=== PATIENT | female | born 1935 | race Caucasian/White ===

== ENCOUNTER 2017-07-02 15:38 | Emergency (ER) | payer MEDICARE ==
[~2017-07-02] VITALS: Ht 160 cm; Wt 80.5 kg
[~2017-07-02 15:38] MED LIST: CARV6.252 PO; ECOT81TA2 PO; PANT40IN3 PO; PLAV75TA PO; POTA-243 PO; PREG75 PO; SPIR25TA PO
[2017-07-02 15:47] VITALS: BP 157/73; PULSE 71; RESP 16; TEMP 97.3; O2SAT 98
[2017-07-02] MEDS ORDERED: SIMV20TA PO (16:11)
[2017-07-02] MEDS ORDERED: LEVS0.123 PO (16:11)
[2017-07-02] MEDS ORDERED: BISO5TAB5 PO (16:11)
[2017-07-02] MEDS ORDERED: LEVO100T5 PO (16:11)
[2017-07-02] MEDS ORDERED: RANI1TAB5 PO (16:11)
[2017-07-02] MEDS ORDERED: CARV6.252 PO (16:11)
[2017-07-02] MEDS ORDERED: SPIR25TA PO (16:11)
[2017-07-02] MEDS ORDERED: LOSA50TA PO (16:11)
[2017-07-02] MEDS ORDERED: PANT40TA3 PO (16:11)
[2017-07-02] MEDS ORDERED: CLOP75TA PO (16:11)
[2017-07-02] MEDS ORDERED: KLOR10TA PO (16:11)
[2017-07-02] MEDS ORDERED: GLIM1TAB PO (16:11)
[2017-07-02] MEDS ORDERED: LYRI75CA PO (16:11)
--- NOTE | 2017-07-02 16:28 | PD ---
HPI . Facial pain Chief Complaint: Fall Time Seen by Provider: 16:10 Travel History International Travel<30 days: No Contact w/Intl Traveler<30days: No Traveled to known affect area: No History of Present Illness HPI Patient presents stating that she rolled out of bed 2-1/2 weeks ago and struck the left side of her face. She states that she was black and blue on the left side of her face. That has resolved. Her, she has continued to have facial pain. She subsequently presents to us for evaluation. She states that her facial pain is relieved by ice. She rates the pain at 7/10. She states that she also has some neck pain. She further states that she does not recall the event. Her daughter states that she rolled out of bed after starting a new sleeping pill. It is unclear if the amnesia for the event is related to the sleeping pill or the blow to the head. The patient states she presents to us today because the pain has persisted. She denied any other injuries. PFSH Past Medical History Hx Anticoagulant Therapy: Yes Arthritis: Yes Blood Disorders: No Anxiety: Yes Depression: Yes Heart Rhythm Problems: Yes (NEW AFIB 12/29/15) Cancer: No Cardiac Catheterization: Yes Cardiovascular Problems: Yes (htn on meds) High Cholesterol: Yes Chest Pain: No Congestive Heart Failure: No Cerebrovascular Accident: Yes Coronary Artery Disease: Yes Diabetes: Yes (type 2) Patient Takes Glucophage: No Diminished Hearing: No Endocrine: Yes Fibromyalgia: Yes Gastrointestinal Disorders: Yes GERD: Yes Genitourinary: Yes Headaches: Yes Hepatitis: No Hiatal Hernia: No Hypertension: Yes Immune Disorder: No Implanted Vascular Access Dvce: Yes Kidney Stones: No Medical other: Yes (OPEN WOUNDS KAVITA. LEGS, FALL RISK, FIBROMYALGIA) Musculoskeletal: Yes (FIBROMYALGIA) Neurologic: Yes Psychiatric: Yes Reproductive: No Respiratory: No Immunizations Current: No Migraines: No Myocardial Infarction: Yes (DECEMBER 2015) Renal Failure: No Seizures: No Thyroid Disease: Yes (HYPOTHYROID) Ulcer: No ?: Not Menopausal: Yes : 5 Para: 4 Miscarriage: 1 Past Surgical History Abdominal Surgery: Yes (APPY, CHOLECYSTECTOMY) AICD: No Appendectomy: Yes Arteriovenous Shunt: Yes Body Medical Devices: CORONARY ARTERY STENTS AND CAROTID ARTERY STENTS Cardiac Surgery: No Cholecystectomy: Yes Coronary Stent: Yes (1993) Ear Surgery: No Endocrine Surgery: No Eye Surgery: No Genitourinary Surgery: Yes (BLADDER SUSPENSION, INTERSTIM. INS.(MEDTRONIC)) Gynecologic Surgery: Yes (BLADDER SURGERIES, PT HAS PESSARY) Hysterectomy: Yes Insulin Pump: No Joint Replacement: Yes (LEFT KNEE, PARTIAL) Oral Surgery: Yes (T & A) Pacemaker: No Thoracic Surgery: No Tonsillectomy: Yes Other Surgery: Yes (CERVICAL FUSION, CERV. SX X4) Social History Alcohol Use: Yes (OCCASSIONAL) Tobacco Use: No Substance Use: No Allergies-Medications (Allergen,Severity, Reaction): Coded Allergies: *MDRO Multi-Drug Resistant Organism (Verified Adverse Reaction, Unknown, 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 PCR negative - 12/29/15 & 01/01/16 VRE PCR negative - 01/01/16 & 01/03/16 Cleared per Infection Control 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/08/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) - 06/28/13 Reported Meds & Prescriptions Reported Meds & Active Scripts Active Reported Pantoprazole (Pantoprazole Sodium) 40 Mg Tab 40 Mg PO DAILY Lyrica (Pregabalin) 75 Mg Cap 75 Mg PO BID Klor-Con 10 (Potassium Chloride) 10 Meq Tab 10 Meq PO BID Levothyroxine (Levothyroxine Sodium) 100 Mcg Tab 100 Mcg PO DAILY Levsin (Hyoscyamine Sulfate) 0.125 Mg Tab 0.125 Mg PO Q6H Glimepiride 1 Mg Tab 1 Mg PO BID Take with breakfast or first main meal Ranitidine 75 (Ranitidine HCl) 75 Mg Tab 150 Mg PO BID Take 30 to 60 minutes before eating food or drinking beverages that cause heartburn. Simvastatin 20 Mg Tab 20 Mg PO BID Losartan (Losartan Potassium) 50 Mg Tab 50 Mg PO BID Clopidogrel (Clopidogrel Bisulfate) 75 Mg Tab 75 Mg PO DAILY Spironolactone 25 Mg Tab 25 Mg PO DAILY Carvedilol 6.25 Mg Tab 6.25 Mg PO BID Bisoprolol (Bisoprolol Fumarate) 5 Mg Tab 5 Mg PO DAILY Review of Systems Except as stated in HPI: all other systems reviewed are Neg General / Constitutional: No: Fever, Chills Eyes: No: Diploplia, Blurred Vision HENT: Positive: Neck Pain, Other (left facial pain), No: Dental Difficulties ( specifically, her teeth fit together normally.) Physical Exam Narrative GENERAL: Awake and alert and in no acute distress. SKIN: Warm and dry. No current bruising on her face. HEAD: Normocephalic/atraumatic. EYES: Pupils are equal. Extraocular movements are intact. ENT: Teeth occlude normally. NECK: Normal range of motion. No tenderness to palpation of the cervical spine. CARDIOVASCULAR: Regular rate and rhythm. RESPIRATORY: Nonlabored respirations. MUSCULOSKELETAL: Atraumatic. NEUROLOGICAL: A and O 3. Cranial nerves are intact. Moving all 4 extremities equally. PSYCHIATRIC: Appropriate mood and affect. Data Data Last Documented VS Vital Signs Date Time Temp Pulse Resp B/P (MAP) Pulse Ox O2 Delivery O2 Flow Rate FiO2 07/02/17 15:47 97.3 71 16 157/73 (101) [address] Brain W/O Iv Contrast(Rout) (07/02/17 16:15) Ct Cerv Spine W/O Contrast (07/02/17 16:15) Ct Facial Bones W/O Iv Cont (07/02/17 16:15) MDM Medical Decision Making Medical Screen Exam Complete: Yes Emergency Medical Condition: Yes Differential Diagnosis Differential diagnosis of facial trauma includes but is not limited to soft tissue contusion, abrasions, laceration, nasal fracture, orbital fracture, zygomatic fracture Narrative Course This patient presents complaining with persistent left facial pain following a fall out of bed 2-1/2 weeks ago. I really do not suspect any significant injury at this point. Her facial, neuro and C-spine exams are normal. However , her daughter is convinced that there is something wrong. I have ordered CTs of her head, face and C-spine. CT C-spine: 1. Stable postoperative features of spinal fusion at C4-7. 2. No acute fracture or new subluxation. CT head: 1. No acute intracranial abnormality is identified. 2. Chronic findings include mild cerebral atrophy and chronic periventricular white matter changes. CT face: 1. No maxillofacial fracture is present. 2. There is moderate mucoperiosteal thickening within the right maxillary sinus. Diagnosis Primary Impression: Facial contusion Qualified Codes: S00.83XA - Contusion of other part of head, initial encounter Patient Instructions: Facial Contusion (ED), General Instructions Disposition: 01 DISCHARGE HOME Condition: Stable Elizabeth Greer MD Jul 02, 2017 16:28
--- NOTE | 2017-07-02 17:05 | RADRPT ---
EXAM DATE/TIME: 07/02/2017 16:43 [facility] COMPARISON: CT BRAIN W/O CONTRAST, April 24, 2016, 19:59. INDICATIONS : Trauma. Fell out of bed 2 1/2 weeks ago. Left facial pain. RADIATION DOSE: 61.95 CTDIvol (mGy) MEDICAL HISTORY : Cerebrovascular disease. Myocardial infarction. Diabetes mellitus type 2.Hypertension. SURGICAL HISTORY : Coronary artery stent. Fusion, cervical.Cholecystectomy.Appendectomy. AV shunt. ENCOUNTER: Initial ACUITY: 2 weeks PAIN SCALE: 7/10 LOCATION: cranial TECHNIQUE: Multiple contiguous axial images were obtained of the head. Using automated exposure control and adj ustment of the mA and/or kV according to patient size, radiation dose was kept as low as reasonably a chievable to obtain optimal diagnostic quality images. DICOM format image data is available electro nically for review and comparison. FINDINGS: CEREBRUM: There is mild cerebral atrophy. Ventricles are normal. There is mild periventricular white matter low attenuation. No midline shift, mass lesion, hemorrhage or acute infarction. No extra-axial fluid co llections are seen. POSTERIOR FOSSA: The cerebellum and brainstem are intact. The 4th ventricle is midline. The cerebellopontine angle i s unremarkable. EXTRACRANIAL: There is mucoperiosteal thickening within the right maxillary antrum. SKULL: The calvaria is intact. No evidence of skull fracture. CONCLUSION: 1. No acute intracranial abnormality is identified. 2. Chronic findings include mild cerebral atrophy and chronic periventricular white matter changes. Isiah Diaz MD on July 02, 2017 at 17:01 Board Certified Radiologist. This report was verified electronically.
--- NOTE | 2017-07-02 17:13 | RADRPT ---
EXAM DATE/TIME: 07/02/2017 16:43 [facility] COMPARISON: No previous studies available for comparison. INDICATIONS : Trauma. Fell out of bed 2 1/2 weeks ago. Left facial pain. RADIATION DOSE: 25.35 CTDIvol (mGy) MEDICAL HISTORY : Cerebrovascular disease. Myocardial infarction. Diabetes mellitus type 2.Hypertension. SURGICAL HISTORY : Fusion, cervical. Coronary artery stent.Cholecystectomy.Appendectomy. AV shunt. ENCOUNTER: Initial ACUITY: 2 weeks PAIN SCORE: 7/10 LOCATION: Left facial TECHNIQUE: Volumetric scanning of the facial bones was performed. Using automated exposure control and adjustme nt of the mA and/or kV according to patient size, radiation dose was kept as low as reasonably achiev able to obtain optimal diagnostic quality images. DICOM format image data is available electronicAJAX Street y for review and comparison. FINDINGS: ORBITS: The orbital structures are intact. The retroconal structures have a normal configuration. No radiop aque foreign bodies are seen. The lenses are normally located. NASAL BONE: The nasal bones and maxillary spine are intact. ZYGOMATIC ARCHES: Symmetric without evidence of fracture. SINUSES: There is mucoperiosteal thickening within the right maxillary antrum. No air-fluid levels are present . NASAL CAVITY: The nasal septum is intact and midline. The lacrimal ducts are intact. SOFT TISSUES: No radiopaque foreign bodies seen. No soft-tissue swelling is seen. INTRACRANIAL: No acute intracranial abnormality is seen. OTHER: The mandible and pterygoid plates are intact. CONCLUSION: 1. No maxillofacial fracture is present. 2. There is moderate mucoperiosteal thickening within the right maxillary sinus. Isiah Diaz MD on July 02, 2017 at 17:09 Board Certified Radiologist. This report was verified electronically.
--- NOTE | 2017-07-02 17:15 | RADRPT ---
EXAM DATE/TIME: 07/02/2017 16:43 [facility] COMPARISON: CT CERVICAL SPINE W/O CONTRAST, April 24, 2016, 19:59. INDICATIONS : Trauma. Fell out of bed 2 1/2 weeks ago. Left facial pain. RADIATION DOSE: 26.12 CTDIvol (mGy) MEDICAL HISTORY : Cerebrovascular disease. Diabetes mellitus type 2. Myocardial infarction.Hypertension. SURGICAL HISTORY : Coronary artery stent. Fusion, cervical.Cholecystectomy.Appendectomy. AV shunt. ENCOUNTER: Initial ACUITY: 2 weeks PAIN SCALE: 7/10 LOCATION: neck TECHNIQUE: Volumetric scanning of the cervical spine was performed. Multiplanar reconstructions in the sagittal, coronal and oblique axial planes were performed. Using automated exposure control and adjustment o f the mA and/or kV according to patient size, radiation dose was kept as low as reasonably achievable to obtain optimal diagnostic quality images. DICOM format image data is available electronically f or review and comparison. FINDINGS: Postsurgical features of anterior plate and screw fixation at C6-7. There is solid bony union at C4-C 7. Vertebral body heights are maintained. Osseous structures are intact without evidence for acute [place] fracture. Dens is intact. Sagittal alignment is stable with subtle less than 2 mm anterolisthesis of C3 on C4 and C7 on T1. There is a normal C1-2 relationship. Facets are normally aligned. There is no significant prevertebral soft tissue hematoma. No significant cervical adenopathy or gross mass. T he thyroid appears unremarkable. Visualized lung apices are clear without pneumothorax. CONCLUSION: 1. Stable postoperative features of spinal fusion at C4-7. 2. No acute fracture or new subluxation. Mart Garber MD on July 02, 2017 at 17:11 Board Certified Radiologist. This report was verified electronically.
== END 2017-07-02 17:50 | disposition home or self-care (01) ==
LOC: PHED 15:38
DX: S00.83XA Contusion of other part of head, initial encounter (principal); E03.9 Hypothyroidism, unspecified; E11.9 Type 2 diabetes mellitus without complications; E78.00 Pure hypercholesterolemia, unspecified; I10 Essential (primary) hypertension; W06.XXXA Fall from bed, initial encounter; Z79.02 Long term (current) use of antithrombotics/antiplatelets; Z79.84 Long term (current) use of oral hypoglycemic drugs
CPT/HCPCS: 70450; 70486; 72125; 99285

== ENCOUNTER 2017-08-06 18:23 | Emergency (ER) | payer MEDICARE ==
[~2017-08-06] VITALS: Ht 160 cm; Wt 79.0 kg
[~2017-08-06 18:23] MED LIST changes: +BISO5TAB5 PO; +CLOP75TA PO; -ECOT81TA2 PO; +GLIM1TAB PO; +KLOR10TA PO; +LEVO100T5 PO; +LEVS0.123 PO; +LOSA50TA PO; +LYRI75CA PO; -PANT40IN3 PO; +PANT40TA3 PO; -PLAV75TA PO; -POTA-243 PO; -PREG75 PO; +RANI1TAB5 PO; +SIMV20TA PO
[2017-08-06 18:37] VITALS: BP_SYST 144; BP_SYST 181; BP_DIAS 70; BP_DIAS 82; PULSE 106; PULSE 68; RESP 16; TEMP 97; TEMP 98.2; O2SAT 96; O2SAT 97
[2017-08-06] MEDS ORDERED: CLON0.5T PO (21:42)
[2017-08-06] MEDS ORDERED: LYRI75CA PO (21:42)
[2017-08-06 21:43] VITALS: BP 186/80; PULSE 61; RESP 18; O2SAT 96
--- NOTE | 2017-08-06 22:39 | PD ---
HPI Chief Complaint: Fall Time Seen by Provider: 21:54 Travel History International Travel<30 days: No Contact w/Intl Traveler<30days: No Traveled to known affect area: No History of Present Illness HPI 81yo F with PMH of DM, HTN was sent here by her home physician to come to the ED for CT scan. Pt said she was washing toilet 1.5 weeks ago, got up and fell backwards and hit her head. Pt has been getting headaches and neck pain but it has actually improved. She had a physician check on her at home today and they did blood work and urine and it was all negative. However, since pt is on plavix, they wanted her to have CT scan. Denies any LOC. Denies any focal weakness, focal numbness, dizziness, chest pain, sob, n/v, abdominal pain. PFSH Past Medical History Hx Anticoagulant Therapy: Yes Arthritis: Yes Blood Disorders: No Anxiety: Yes Depression: Yes Heart Rhythm Problems: Yes (NEW AFIB 12/29/15) Cancer: No Cardiac Catheterization: Yes Cardiovascular Problems: Yes (htn on meds) High Cholesterol: Yes Chest Pain: No Congestive Heart Failure: No Cerebrovascular Accident: Yes Coronary Artery Disease: Yes Diabetes: Yes (type 2) Patient Takes Glucophage: No Diminished Hearing: No Endocrine: Yes Fibromyalgia: Yes Gastrointestinal Disorders: Yes GERD: Yes Genitourinary: Yes Headaches: Yes Hepatitis: No Hiatal Hernia: No Hypertension: Yes Immune Disorder: No Implanted Vascular Access Dvce: Yes Kidney Stones: No Medical other: Yes (, FALL RISK, FIBROMYALGIA) Musculoskeletal: Yes (FIBROMYALGIA) Neurologic: Yes Psychiatric: Yes Reproductive: No Respiratory: No Immunizations Current: No Migraines: No Myocardial Infarction: Yes (DECEMBER 2015) Renal Failure: No Seizures: No Thyroid Disease: Yes (HYPOTHYROID) Ulcer: No Tetanus Vaccination: > 5 Years Influenza Vaccination: Yes ?: Not Menopausal: Yes : 5 Para: 4 Miscarriage: 1 Past Surgical History Abdominal Surgery: Yes (APPY, CHOLECYSTECTOMY) AICD: No Appendectomy: Yes Arteriovenous Shunt: Yes Body Medical Devices: CORONARY ARTERY STENTS AND CAROTID ARTERY STENTS Cardiac Surgery: No Cholecystectomy: Yes Coronary Stent: Yes (1993) Ear Surgery: No Endocrine Surgery: No Eye Surgery: No Genitourinary Surgery: Yes (BLADDER SUSPENSION, INTERSTIM. INS.(MEDTRONIC)) Gynecologic Surgery: Yes (BLADDER SURGERIES, PT HAS PESSARY) Hysterectomy: Yes Insulin Pump: No Joint Replacement: Yes (LEFT KNEE, PARTIAL) Oral Surgery: Yes (T & A) Pacemaker: No Thoracic Surgery: No Tonsillectomy: Yes Other Surgery: Yes (CERVICAL FUSION, CERV. SX X4) Social History Alcohol Use: Yes (OCCASSIONAL) Tobacco Use: No Substance Use: No Allergies-Medications (Allergen,Severity, Reaction): Coded Allergies: *MDRO Multi-Drug Resistant Organism (Verified Adverse Reaction, Unknown, 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 PCR negative - 12/29/15 & 01/01/16 VRE PCR negative - 01/01/16 & 01/03/16 Cleared per Infection Control 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/08/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) - 06/28/13 Reported Meds & Prescriptions Reported Meds & Active Scripts Active Reported Clonazepam 0.5 Mg Tab 0.5 Mg PO BID Lyrica (Pregabalin) 75 Mg Cap 75 Mg PO BID Pantoprazole (Pantoprazole Sodium) 40 Mg Tab 40 Mg PO DAILY Klor-Con 10 (Potassium Chloride) 10 Meq Tab 10 Meq PO DAILY Levothyroxine (Levothyroxine Sodium) 100 Mcg Tab 100 Mcg PO DAILY Glimepiride 1 Mg Tab 1 Mg PO BID Take with breakfast or first main meal Ranitidine 75 (Ranitidine HCl) 75 Mg Tab 150 Mg PO DAILY Take 30 to 60 minutes before eating food or drinking beverages that cause heartburn. Simvastatin 20 Mg Tab 20 Mg PO DAILY Losartan (Losartan Potassium) 50 Mg Tab 50 Mg PO DAILY Clopidogrel (Clopidogrel Bisulfate) 75 Mg Tab 75 Mg PO DAILY Spironolactone 25 Mg Tab 25 Mg PO DAILY Carvedilol 6.25 Mg Tab 12.5 Mg PO BID Bisoprolol (Bisoprolol Fumarate) 5 Mg Tab 5 Mg PO BID Review of Systems Except as stated in HPI: all other systems reviewed are Neg Physical Exam Narrative GENERAL: 81yo F not in distress. SKIN: Focused skin assessment warm/dry. HEAD: Atraumatic. Normocephalic. EYES: Pupils equal and round at 3mm bilaterally. EOMI. ENT: No nasal bleeding or discharge. Mucous membranes pink and moist. NECK: No midline cervical spine ttp. +Diffuse paraspinal ttp. CARDIOVASCULAR: Regular rate and rhythm. No murmur appreciated. RESPIRATORY: No accessory muscle use. Clear to auscultation. Breath sounds equal bilaterally. GASTROINTESTINAL: Abdomen soft, non-tender, nondistended. No rebound tenderness or guarding. MUSCULOSKELETAL: No obvious deformities. No clubbing. No cyanosis. No edema. NEUROLOGICAL: Awake and alert. No obvious cranial nerve deficits. Motor grossly within normal limits. Normal speech. Sensation intact. PSYCHIATRIC: Appropriate mood and affect; insight and judgment normal. Data Data Last Documented VS Vital Signs Date Time Temp Pulse Resp B/P (MAP) Pulse Ox O2 Delivery O2 Flow Rate FiO2 08/06/17 21:43 61 18 186/80 (115) 96 Room Air 08/06/17 18:[address] Brain W/O Iv Contrast(Rout) (08/06/17 ) Ct Cerv Spine W/O Contrast (08/06/17 ) Acetaminophen (Tylenol) (08/06/17 22:45) MDM Medical Decision Making Medical Screen Exam Complete: Yes Emergency Medical Condition: Yes Differential Diagnosis ICH vs. hypertensive emergency vs. contusion of head vs. musculoskeletal pain Narrative Course 81yo F sent here for CT brain after falling 1.5 weeks ago. No other symptoms. Pt had extensive work up with PMD. CT cervical spine showed no acute bony fracture. CT brain showed no ICH. Pt given acetaminophen and headache is better. She wants to go home. Return precautions given. Diagnosis Primary Impression: Fall Qualified Codes: W19.XXXA - Unspecified fall, initial encounter Patient Instructions: General Instructions Departure Forms: Tests/Procedures Additional Instructions: Please follow up with your primary care physician in 2-3 days. Return to the ED if symptoms worsen. Med/Other Pt SpecificInfo: Prescription(s) given Scripts Acetaminophen (Tylenol) 325 Mg Tab 325 MG PO Q4H Y for PAIN SCALE 1 TO 4, #20 TAB 0 Refills Prov: Tammie Gutierres 08/07/17 Disposition: 01 DISCHARGE HOME Condition: Stable GutierresTammie DO Aug 06, 2017 22:39
[2017-08-06] MEDS ORDERED: ACETAMINOPHEN 500 MG CPLT PO ONE (22:45)
--- NOTE | 2017-08-07 | RADRPT ---
EXAM DATE/TIME: 08/06/2017 22:32 [facility] COMPARISON: CT BRAIN W/O CONTRAST, July 02, 2017, 16:43. INDICATIONS : Status post fall 2 weeks ago. Hit head. No LOC. Headache RADIATION DOSE: 57.13 CTDIvol (mGy) MEDICAL HISTORY : Radiculopathy. SURGICAL HISTORY : Carotid stent. Fusion, cervical.Tonsillectomy. ENCOUNTER: Initial ACUITY: 2 weeks PAIN SCALE: 6/10 LOCATION: cranial TECHNIQUE: Multiple contiguous axial images were obtained of the head. Using automated exposure control and adj ustment of the mA and/or kV according to patient size, radiation dose was kept as low as reasonably a chievable to obtain optimal diagnostic quality images. DICOM format image data is available electro nically for review and comparison. FINDINGS: CEREBRUM: The ventricles are normal for age. No evidence of midline shift, mass lesion, hemorrhage or acute in farction. There is stable chronic white matter changes bilaterally. No extra-axial fluid collections are seen. POSTERIOR FOSSA: The cerebellum and brainstem are intact. The 4th ventricle is midline. The cerebellopontine angle i s unremarkable. EXTRACRANIAL: The visualized portion of the orbits is intact. Chronic sinus disease in the right maxillary sinus. SKULL: The calvaria is intact. No evidence of skull fracture. CONCLUSION: 1. No acute intracranial hemorrhage. 2. Stable CT scan of the brain compared to the prior examination. Lizandro Borrero MD on August 06, 2017 at 23:57 Board Certified Radiologist. This report was verified electronically.
--- NOTE | 2017-08-07 00:14 | RADRPT ---
EXAM DATE/TIME: 08/06/2017 22:32 [facility] COMPARISON: CT CERVICAL SPINE W/O CONTRAST, July 02, 2017, 16:43. INDICATIONS : Status post fall 2 weeks ago. Neck pain RADIATION DOSE: 26.47 CTDIvol (mGy) MEDICAL HISTORY : Radiculopathy. SURGICAL HISTORY : Carotid stent. Tonsillectomy.Fusion, cervical. ENCOUNTER: Initial ACUITY: 2 weeks PAIN SCALE: 6/10 LOCATION: neck TECHNIQUE: Volumetric scanning of the cervical spine was performed. Multiplanar reconstructions in the sagittal, coronal and oblique axial planes were performed. Using automated exposure control and adjustment o f the mA and/or kV according to patient size, radiation dose was kept as low as reasonably achievable to obtain optimal diagnostic quality images. DICOM format image data is available electronically f or review and comparison. FINDINGS: Today's exam is compared to the prior study of 07/02/2017. There been no new or significant changes wi th the overall appearance of the cervical spine. There is an anterior fusion plate at C6-7. There is solid bony fusion at C4-C7. There continues to be good alignment of the cervical spine. There are mil d diffuse primary degenerative changes involving the cervical spine. No acute bony fracture is demons trated. The odontoid process is intact. There is bilateral facet arthritis at multiple levels. No sig nificant extradural defects are seen in the spinal canal. CONCLUSION: 1. Stable CT scan of the cervical spine compared to the prior examination. 2. No acute bony fracture. Lizandro Borrero MD on August 07, 2017 at 0:08 Board Certified Radiologist. This report was verified electronically.
[2017-08-07] MEDS ORDERED: TYLE325T PO (00:31)
[2017-08-07 00:45] VITALS: RESP 18
== END 2017-08-07 00:47 | disposition home or self-care (01) ==
LOC: PHED 18:23 → PHEFT 08-07 00:47
DX: R51 Headache (principal); M54.2 Cervicalgia; E03.9 Hypothyroidism, unspecified; E11.9 Type 2 diabetes mellitus without complications; E78.00 Pure hypercholesterolemia, unspecified; I10 Essential (primary) hypertension; I25.10 Atherosclerotic heart disease of native coronary artery without angina pectoris; I25.2 Old myocardial infarction; I48.91 Unspecified atrial fibrillation; K21.9 Gastro-esophageal reflux disease without esophagitis; M79.7 Fibromyalgia; Z79.02 Long term (current) use of antithrombotics/antiplatelets; Z79.84 Long term (current) use of oral hypoglycemic drugs; Z79.899 Other long term (current) drug therapy; W19.XXXA Unspecified fall, initial encounter
CPT/HCPCS: 70450; 72125

== ENCOUNTER 2017-08-23 18:33 | Inpatient (IN) | payer MEDICARE ==
[~2017-08-23] VITALS: Ht 160 cm; Wt 82.2 kg
[~2017-08-23 18:33] MED LIST changes: +CLON0.5T PO; -LEVS0.123 PO; +TYLE325T PO
[2017-08-23 18:35] VITALS: BP 96/51; PULSE 72; RESP 16; TEMP 97.3; O2SAT 96
--- NOTE | 2017-08-23 19:14 | PD ---
HPI Chief Complaint: GI Complaint Time Seen by Provider: 19:14 Travel History International Travel<30 days: No Contact w/Intl Traveler<30days: No Traveled to known affect area: No History of Present Illness HPI 81-year-old female came to the emergency room saying she's been feeling weak, nauseous and has a headache. Patient generally does not get headache. She used when she was younger. The symptoms have been going on for past 2-4 days. Patient says she did not vomit and no history of diarrhea. She has lost her appetite. No history of shortness of breath or chest pain. No history of syncopal episode or dizziness. Vital signs were stable in triage. PFSH Past Medical History Narrative Medical List of her past medical, surgical, social and family history is reviewed from the nursing note. Hx Anticoagulant Therapy: Yes Arthritis: Yes Blood Disorders: No Anxiety: Yes Depression: Yes Heart Rhythm Problems: Yes (NEW AFIB 12/29/15) Cancer: No Cardiac Catheterization: Yes Cardiovascular Problems: Yes (htn on meds) High Cholesterol: Yes Chest Pain: No Congestive Heart Failure: No Cerebrovascular Accident: Yes Coronary Artery Disease: Yes Diabetes: Yes (type 2) Diminished Hearing: No Endocrine: Yes Fibromyalgia: Yes Gastrointestinal Disorders: Yes GERD: Yes Genitourinary: Yes Headaches: Yes Hepatitis: No Hiatal Hernia: No Hypertension: Yes Immune Disorder: No Implanted Vascular Access Dvce: Yes Kidney Stones: No Musculoskeletal: Yes (FIBROMYALGIA) Neurologic: Yes Psychiatric: Yes Reproductive: No Respiratory: No Immunizations Current: No Migraines: No Myocardial Infarction: Yes (DECEMBER 2015) Renal Failure: No Seizures: No Thyroid Disease: Yes (HYPOTHYROID) Ulcer: No Menopausal: Yes : 5 Para: 4 Miscarriage: 1 Past Surgical History Abdominal Surgery: Yes (APPY, CHOLECYSTECTOMY) AICD: No Appendectomy: Yes Arteriovenous Shunt: Yes Body Medical Devices: CORONARY ARTERY STENTS AND CAROTID ARTERY STENTS Cardiac Surgery: No Cholecystectomy: Yes Coronary Stent: Yes (1993) Ear Surgery: No Endocrine Surgery: No Eye Surgery: No Genitourinary Surgery: Yes (BLADDER SUSPENSION, INTERSTIM. INS.(MEDTRONIC)) Gynecologic Surgery: Yes (BLADDER SURGERIES, PT HAS PESSARY) Hysterectomy: Yes Insulin Pump: No Joint Replacement: Yes (LEFT KNEE, PARTIAL) Oral Surgery: Yes (T & A) Pacemaker: No Thoracic Surgery: No Tonsillectomy: Yes Other Surgery: Yes (CERVICAL FUSION, CERV. 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 Reported Meds & Prescriptions Reported Meds & Active Scripts Active Tylenol (Acetaminophen) 325 Mg Tab 325 Mg PO Q4H PRN Reported Clonazepam 0.5 Mg Tab 0.5 Mg PO BID Lyrica (Pregabalin) 75 Mg Cap 75 Mg PO BID Pantoprazole (Pantoprazole Sodium) 40 Mg Tab 40 Mg PO DAILY Klor-Con 10 (Potassium Chloride) 10 Meq Tab 10 Meq PO DAILY Levothyroxine (Levothyroxine Sodium) 100 Mcg Tab 100 Mcg PO DAILY Glimepiride 1 Mg Tab 1 Mg PO BID Take with breakfast or first main meal Ranitidine 75 (Ranitidine HCl) 75 Mg Tab 150 Mg PO DAILY Take 30 to 60 minutes before eating food or drinking beverages that cause heartburn. Simvastatin 20 Mg Tab 20 Mg PO DAILY Clopidogrel (Clopidogrel Bisulfate) 75 Mg Tab 75 Mg PO DAILY Carvedilol 6.25 Mg Tab 12.5 Mg PO BID Bisoprolol (Bisoprolol Fumarate) 5 Mg Tab 5 Mg PO BID Narrative Medication List of her home medications reviewed from the nursing note. Review of Systems Except as stated in HPI: all other systems reviewed are Neg Gastrointestinal: Positive: Nausea Neurologic: Positive: Headache Physical Exam Narrative GENERAL: Awake, alert, elderly, moderate distress SKIN: Focused skin assessment warm/dry. HEAD: Atraumatic. Normocephalic. EYES: Pupils equal and round. No scleral icterus. No injection or drainage. ENT: No nasal bleeding or discharge. Mucous membranes pink and moist. NECK: Trachea midline. No JVD. CARDIOVASCULAR: Regular rate and rhythm. No murmur appreciated. RESPIRATORY: No accessory muscle use. Clear to auscultation. Breath sounds equal bilaterally. GASTROINTESTINAL: Abdomen soft, non-tender, nondistended. Hepatic and splenic margins not palpable. MUSCULOSKELETAL: No obvious deformities. No clubbing. No cyanosis. No edema. NEUROLOGICAL: Awake and alert. No obvious cranial nerve deficits. Motor grossly within normal limits. Normal speech. PSYCHIATRIC: Appropriate mood and affect; insight and judgment normal. Data Data Last Documented VS Vital Signs Date Time Temp Pulse Resp B/P (MAP) Pulse Ox O2 Delivery O2 Flow Rate FiO2 08/23/17 21:30 64 18 129/61 (83) 93 Room Air 08/23/17 18:35 97.3 Orders Orders Complete Blood Count With Diff (08/23/17 19:17) Basic Metabolic Panel (Bmp) (08/23/17 19:17) Urinalysis - C+S If Indicated (08/23/17 19:17) Sodium Chlorid 0.9% 500 Ml Inj (Ns 500 M (08/23/17 19:30) Ondansetron Inj (Zofran Inj) (08/23/17 19:30) Ct Brain W/O Iv Contrast(Rout) (08/23/17 ) Shipwright Apprentice / Telemetry DELTA.Q8H (08/23/17 19:17) Sodium Chlor 0.9% 1000 Ml Inj (Ns 1000 M (08/23/17 21:15) Electrocardiogram (08/23/17 21:07) Ecg Monitoring (08/23/17 21:07) Oximetry (08/23/17 21:07) Calcium Gluconate Inj (Calcium Gluconate (08/23/17 21:15) Insulin Human Regular Inj (Novolin R Inj (08/23/17 21:15) Dextrose 50% In Kristin (Vial) Inj (D50w (Vi (08/23/17 21:15) Sodium Bicarbonate 8.4% Inj (Sodium Bica (08/23/17 21:15) Albuterol Concentrated Neb (Albuterol Co (08/23/17 21:15) Troponin I (08/23/17 19:55) Bedside Glucose DELTA.CSUGAR (08/23/17 21:25) Blood Glucose Goal (Criteria) (08/23/17 21:25) Hypoglycemia 70 Mg/Dl Or < (08/23/17 21:25) Notify Dr: Other (08/23/17 21:25) Dextrose 50% In Kristin (Vial) Inj (D50w (Vi (08/23/17 21:30) Glucagon Inj (Glucagon Inj) (08/23/17 21:30) Insulin Aspart Supplemtl Scale (Novolog (08/24/17 08:00) Us Kidney/Renal/Bladder (08/23/17 ) Consult Nephrology (08/23/17 ) Basic Metabolic Panel (Bmp) (08/24/17 00:00) Admit To Inpatient (08/23/17 ) Vital Signs (Adult) Q4H (08/23/17 21:25) Activity Oob With Assistance (08/23/17 21:25) Shipwright Apprentice / Telemetry .CONTINUOUS (08/23/17 21:25) Intake + Output DELTA.QSHIFT (08/23/17 21:25) Diet 1800 Ada Cons Carb (08/24/17 Breakfast) Sodium Chlor 0.9% 1000 Ml Inj (Ns 1000 M (08/23/17 21:25) Sodium Chloride 0.9% Flush (Ns Flush) (08/23/17 21:30) Sodium Chloride 0.9% Flush (Ns Flush) (08/24/17 09:00) Ondansetron Inj (Zofran Inj) (08/23/17 21:30) Comprehensive Metabolic Panel (08/24/17 06:00) Complete Blood Count With Diff (08/24/17 06:00) Pt Request For Service (08/23/17 21:25) Case Management Consult (08/23/17 21:25) Scd Bilateral/Knee High DELTA.BID (08/23/17 21:25) Cristopher Bilateral/Knee High (08/23/17 21:30) Acetaminophen (Tylenol) (08/23/17 21:30) Acetamin-Hydrocod 325-5 Mg (Sumner 5-325 (08/23/17 21:30) Morphine Inj (Morphine Inj) (08/23/17 21:30) Docusate Sodium-Senna (Brianna-Colace) (08/24/17 09:00) Magnesium Hydroxide Liq (Milk Of Magnesi (08/23/17 21:30) Sennosides (Senokot) (08/23/17 21:30) Bisacodyl Supp (Dulcolax Supp) (08/23/17 21:30) Lactulose Liq (Lactulose Liq) (08/23/17 21:30) Inpatient Certification (08/23/17 ) Admit Order (Ed Use Only) (08/23/17 21:33) Labs Laboratory Tests Test 08/23/17 19:55 White Blood Count 12.5 TH/MM3 Red Blood Count 5.27 MIL/MM3 Hemoglobin 15.3 GM/DL Hematocrit 46.9 % Mean Corpuscular Volume 89.0 FL Mean Corpuscular Hemoglobin 29.0 PG Mean Corpuscular Hemoglobin Concent 32.6 % Red Cell Distribution Width 14.4 % Platelet Count 238 TH/MM3 Mean Platelet Volume 9.3 FL Neutrophils (%) (Auto) 71.4 % Lymphocytes (%) (Auto) 21.3 % Monocytes (%) (Auto) 5.8 % Eosinophils (%) (Auto) 0.8 % Basophils (%) (Auto) 0.7 % Neutrophils # (Auto) 8.9 TH/MM3 Lymphocytes # (Auto) 2.7 TH/MM3 Monocytes # (Auto) 0.7 TH/MM3 Eosinophils # (Auto) 0.1 TH/MM3 Basophils # (Auto) 0.1 TH/MM3 CBC Comment DIFF FINAL Differential Comment Blood Urea Nitrogen 51 MG/DL Creatinine 2.40 MG/DL Random Glucose 134 MG/DL Calcium Level 8.9 MG/DL Sodium Level 135 MEQ/L Potassium Level 6.6 MEQ/L Chloride Level 105 MEQ/L Carbon Dioxide Level 21.6 MEQ/L Anion Gap 8 MEQ/L Estimat Glomerular Filtration Rate 19 ML/MIN Troponin I LESS THAN 0.02 NG/ML MDM Medical Decision Making Medical Screen Exam Complete: Yes Emergency Medical Condition: Yes Medical Record Reviewed: Yes Interpretation(s) Twelve-lead EKG was reviewed by me. Normal sinus rhythm, left axis deviation, inferior ST elevations but unchanged from 2016, poor R-wave progression. Heart rate of 64 bpm. Differential Diagnosis Intracranial bleed, dehydration Narrative Course 9:36 PM blood test results came back and chemistry is significant for acute renal failure and hyperkalemia. The acute renal failure is new when trended with all the labs from the past. Patient has been given treatment protocol for hyperkalemia including IV calcium gluconate, IV bicarbonate, IV insulin and D50 and albuterol nebulizers. I discussed the case with the hospitalist who has accepted the patient. I discussed these findings with patient and her daughter and answered all the questions the best of my ability. Patient continues to remain hemodynamically stable otherwise. Critical Care Narrative Aggregate critical care time was 45 minutes. Time to perform other separately billable procedures was not included in the critical care time. My time did not include minutes spent treating any other patients simultaneously or on activities that did not directly contribute to the patient's treatment. The services I provided to this patient were to treat and/or prevent clinically significant deterioration that could result in: Acute renal failure, hyperkalemia I provided critical care services requiring my management, as noted below: Chart data review, documentation time, medication orders and management, vital sign assessments/reviewing monitor data, ordering and reviewing lab tests, ordering and interpreting/reviewing x-rays and diagnostic studies, care of the patient and discussion of the patient with the admitting physicians. Procedures EKG Prior to Arrival: No Diagnosis Primary Impression: ARF (acute renal failure) Qualified Codes: N17.9 - Acute kidney failure, unspecified Additional Impression: Hyperkalemia Admitting Information Admitting Physician Requests: Admit Scripts Gentlecath Urinary Catheter (Gentlecath Urinary Catheter) 8 Fr-16" Mis EA .XX DIRECTED for Urinary Symptom Managemen, #1 0 Refills perform self cath BID Prov: Callie Jeronimo MD 08/26/17 Nitrofurantoin Monohydrate Macrocrystals (Macrobid) 100 Mg Cap 100 MG PO BID for Infection, #10 CAP 0 Refills Prov: Callie Jeronimo MD 08/26/17 Amlodipine (Norvasc) 5 Mg Tab 5 MG PO DAILY, #30 TAB Prov: Callie Jeronimo MD 08/26/17 Telma Morgan MD Aug 23, 2017 19:14
[2017-08-23] MEDS ORDERED: ONDANSETRON HCL 4 MG/2 ML VIAL IV PUSH ONE (19:30)
[2017-08-23] MEDS ORDERED: SODIUM CHLORID 0.9% 500 ML INJ 500 ML IV ONE (19:30)
[2017-08-23 20:00] VITALS: BP 120/57; PULSE 75; RESP 18; O2SAT 96
--- NOTE | 2017-08-23 20:06 | RADRPT ---
EXAM DATE/TIME: 08/23/2017 19:39 [facility] COMPARISON: CT BRAIN W/O CONTRAST, August 06, 2017, 22:32. INDICATIONS : Cephalgia. Weakness. RADIATION DOSE: 61.27 CTDIvol (mGy) MEDICAL HISTORY : Diabetes mellitus type 2. Cardiovascular disease Cerebrovascular disease. SURGICAL HISTORY : Fusion, cervical. Tonsillectomy. ENCOUNTER: Initial ACUITY: 1 day PAIN SCALE: 4/10 LOCATION: Bilateral cranial TECHNIQUE: Multiple contiguous axial images were obtained of the head. Using automated exposure control and adj ustment of the mA and/or kV according to patient size, radiation dose was kept as low as reasonably a chievable to obtain optimal diagnostic quality images. DICOM format image data is available electro nically for review and comparison. FINDINGS: CEREBRUM: The ventricles are normal for age. No evidence of midline shift, mass lesion, hemorrhage or acute in farction. No extra-axial fluid collections are seen. POSTERIOR FOSSA: The cerebellum and brainstem are intact. The 4th ventricle is midline. The cerebellopontine angle i s unremarkable. EXTRACRANIAL: The visualized portion of the orbits is intact. SKULL: The calvaria is intact. No evidence of skull fracture. CONCLUSION: No acute intracranial abnormality. Isiah Colorado MD on August 23, 2017 at 20:03 Board Certified Radiologist. This report was verified electronically.
[2017-08-23 20:26] LABS: AUTOMATED NEUTROPHIL # 8.9 TH/MM3 (1.8-7.7); BASOPHIL # 0.1 TH/MM3 (0-0.2); BASOPHIL % 0.7 % (0.0-2.0); EOSINOPHIL # 0.1 TH/MM3 (0-0.4); EOSINOPHIL % 0.8 % (0.0-4.0); HEMATOCRIT 46.9 % (35.0-46.0); HEMOGLOBIN 15.3 GM/DL (11.6-15.3); LYMPH % 21.3 % (9.0-44.0); LYMPHOCYTE # 2.7 TH/MM3 (1.0-4.8); MEAN CORPUSCULAR HGB CONC 32.6 % (32.0-36.0); MEAN PLATELET VOLUME 9.3 FL (7.0-11.0); MONO % 5.8 % (0.0-8.0); MONOCYTE # 0.7 TH/MM3 (0-0.9); NEUT % 71.4 % (16.0-70.0); PLATELET COUNT 238 TH/MM3 (150-450); RED BLOOD COUNT 5.27 MIL/MM3 (4.00-5.30); RED CELL DISTRIBUTION WIDTH 14.4 % (11.6-17.2); WHITE BLOOD COUNT 12.5 TH/MM3 (4.0-11.0)
[2017-08-23 20:30] VITALS: O2SAT 94
[2017-08-23 21:01] LABS: BICARBONATE 21.6 MEQ/L (21.0-32.0); BLOOD UREA NITROGEN 51 MG/DL (7-18); CALCIUM 8.9 MG/DL (8.5-10.1); CHLORIDE 105 MEQ/L (98-107); GLOMERULAR FILTRATION RATE 19 ML/MIN (>89); GLUCOSE,RANDOM 134 MG/DL (74-106); SODIUM (NA) 135 MEQ/L (136-145)
[2017-08-23] MEDS ORDERED: CALCIUM GLUCONATE 10% 1 GM/10 ML VIAL SLOW IVP ONE (21:15)
[2017-08-23] MEDS ORDERED: INSULIN HUMAN REGULAR 1,000 UNITS/10 ML VIAL IV PUSH ONE (21:15)
[2017-08-23] MEDS ORDERED: RESP: ALBUTEROL CONC 2.5 MG/0.5 ML NEB INH ONE (21:15)
[2017-08-23] MEDS ORDERED: SODIUM BICARBONATE 8.4% SOLN 50 MEQ/50 ML VIAL SLOW IVP ONE (21:15)
[2017-08-23] MEDS ORDERED: SODIUM CHLOR 0.9% 1000 ML INJ 1,000 ML IV ONE (21:15)
[2017-08-23 21:30] VITALS: BP 129/61; PULSE 64; RESP 18; O2SAT 93
[2017-08-23] MEDS ORDERED: SODIUM CHLORIDE 0.9% FLUSH 10 ML FLUSH IV FLUSH PRN (21:30)
[2017-08-23] MEDS ORDERED: LACTULOSE SYRUP 20 GM/30 ML CUP PO PRN (21:30)
[2017-08-23] MEDS ORDERED: ONDANSETRON HCL 4 MG/2 ML VIAL IVP PRN (21:30)
[2017-08-23] MEDS ORDERED: DEXTROSE 50% IN WATER 50 ML VIAL(D50) IV PUSH PRN (21:30)
[2017-08-23] MEDS ORDERED: GLUCAGON 1 MG/ML VIAL OTHER PRN (21:30)
[2017-08-23] MEDS ORDERED: MAGNESIUM HYDROXIDE SUSP 30 ML CUP PO PRN (21:30)
[2017-08-23] MEDS ORDERED: SENNOSIDES 8.6 MG TAB PO PRN (21:30)
[2017-08-23] MEDS ORDERED: ACETAMINOPHEN 325 MG TAB PO PRN (21:30)
[2017-08-23] MEDS ORDERED: BISACODYL 10 MG SUPP RECTAL PRN (21:30)
[2017-08-23] MEDS ORDERED: MORPHINE SULFATE 2 MG/ML INJ IV PUSH PRN (21:30)
[2017-08-23 21:52] LABS: TROPONIN I LESS THAN 0.02 NG/ML (0.02-0.05)
[2017-08-23] MEDS: DEXTROSE 50% IN WATER 50 ML VIAL(D50) IV PUSH ONE ×2 (21:52→22:11)
[2017-08-23 22:30] VITALS: BP 128/67; PULSE 71; RESP 18; O2SAT 95
--- NOTE | 2017-08-23 22:43 | RADRPT ---
EXAM DATE/TIME: 08/23/2017 22:16 [facility] COMPARISON: CT ABDOMEN & PELVIS W CONTRAST, April 24, 2016, 22:40. US KIDNEY/RENAL/BLADDER, December 29, 2015, 9 :31. INDICATIONS : Increased Bun and Creatinine. MEDICAL HISTORY : Hypothyroidism. Hypertension. Diabetes mellitus type 2. Cardiovascular disease Cerebrovascular dise ase. SURGICAL HISTORY : Cervical fusion. Tonsillectomy. Appendectomy. Cholecystectomy. Bladder suspension. Pessary. Leftpar tial knee replacement. Hysterectomy. Lumpectomy x 2 - right breast. ENCOUNTER: Initial ACUITY: 1 day PAIN SCORE: 1/10 LOCATION: Right flank MEASUREMENTS: RIGHT KIDNEY: 9.4 x 4.5 x 4.7 cm LEFT KIDNEY: 9.5 x 5.0 x 5.5 cm FINDINGS: Both kidneys are mildly echogenic and mildly lobulated. There is a 1 cm cyst of the right lower pole. There is moderate hydronephrosis on the left, etiology uncertain but not seen previously. Urinary bladder within normal limits. CONCLUSION: 1. Hydronephrosis on the left of uncertain etiology. 2. Chronic parenchymal changes. 3. Small, benign cyst of the right lower pole. Isiah Colorado MD on August 23, 2017 at 22:37 Board Certified Radiologist. This report was verified electronically.
[2017-08-23] MEDS: SODIUM CHLOR 0.9% 1000 ML INJ 1,000 ML IV SCH (23:02)
[2017-08-23 23:28] VITALS: BP 118/69
[2017-08-24] VITALS (9 sets, daily range): BP systolic 111–170; BP diastolic 54–102; PULSE 58–101; RESP 14–20; TEMP 96–98.2; O2SAT 94–99
[2017-08-24 01:42] LABS: BICARBONATE 24.6 MEQ/L (21.0-32.0); CALCIUM 8.5 MG/DL (8.5-10.1); CREATININE 1.9 MG/DL (0.50-1.00)
[2017-08-24 02:28] LABS: BILIRUBIN, URINE NEG (NEG); BLOOD, URINE NEG (NEG); GLUCOSE,URINE NEG (NEG); KETONE, URINE NEG (NEG); NITRITE,URINE POS (NEG); PH, URINE 5.5 (5.0-8.5); URINE LEUKOCYTE ESTERASE NEG (NEG)
[2017-08-24 02:43] LABS: URINE COLOR YELLOW (YELLW/STRAW)
[2017-08-24 02:45] LABS: BACTERIA, URINE MANY /hpf; MUCUS URINE FEW /lpf (OCC)
[2017-08-24 02:46] LABS: SQUAMOUS EPITHELIAL CELL URINE 0-5 /hpf (0-5); WHITE BLOOD CELL CLUMPS OCC
[2017-08-24 02:47] LABS: HYALINE CAST, URINE 0-2 /lpf (RARE)
[2017-08-24] MEDS: SODIUM CHLOR 0.9% 1000 ML INJ 1,000 ML IV SCH ×2 (05:26→17:25)
[2017-08-24 06:22] LABS: AUTOMATED NEUTROPHIL # 5.4 TH/MM3 (1.8-7.7); BASOPHIL % 0.5 % (0.0-2.0); EOSINOPHIL # 0.1 TH/MM3 (0-0.4); EOSINOPHIL % 1.2 % (0.0-4.0); HEMATOCRIT 36.9 % (35.0-46.0); HEMOGLOBIN 12.1 GM/DL (11.6-15.3); LYMPH % 31.5 % (9.0-44.0); LYMPHOCYTE # 2.9 TH/MM3 (1.0-4.8); MEAN CELL VOLUME 88.8 FL (80.0-100.0); MEAN CORPUSCULAR HEMOGLOBIN 29.1 PG (27.0-34.0); MEAN CORPUSCULAR HGB CONC 32.7 % (32.0-36.0); MEAN PLATELET VOLUME 9.1 FL (7.0-11.0); MONO % 8.3 % (0.0-8.0); MONOCYTE # 0.8 TH/MM3 (0-0.9); NEUT % 58.5 % (16.0-70.0); PLATELET COUNT 200 TH/MM3 (150-450); RED BLOOD COUNT 4.16 MIL/MM3 (4.00-5.30); RED CELL DISTRIBUTION WIDTH 14.2 % (11.6-17.2); WHITE BLOOD COUNT 9.2 TH/MM3 (4.0-11.0)
[2017-08-24 06:28] LABS: CHLORIDE 109 MEQ/L (98-107); SODIUM (NA) 140 MEQ/L (136-145)
[2017-08-24 06:31] LABS: CALCIUM 8.2 MG/DL (8.5-10.1)
[2017-08-24 06:32] LABS: ALBUMIN 2.7 GM/DL (3.4-5.0); BICARBONATE 24.1 MEQ/L (21.0-32.0)
[2017-08-24 06:34] LABS: BLOOD UREA NITROGEN 44 MG/DL (7-18); GLUCOSE,RANDOM 186 MG/DL (74-106)
[2017-08-24 06:38] LABS: ALKALINE PHOSPHATASE 88 U/L (45-117); ALT (GPT) 13 U/L (10-53); AST (GOT) 14 U/L (15-37); GLOMERULAR FILTRATION RATE 27 ML/MIN (>89); TOTAL BILIRUBIN ADULT 0.4 MG/DL (0.2-1.0); TOTAL PROTEIN 6.2 GM/DL (6.4-8.2)
[2017-08-24] MEDS: INSULIN ASPART SUPPLEMENTAL SCALE SQ SCH ×4 (08:00→21:00)
[2017-08-24] MEDS: DOCUSATE SODIUM 50 MG/SENNA 8.6 MG TAB PO SCH ×2 (08:37→21:28)
[2017-08-24] MEDS: SODIUM CHLORIDE 0.9% FLUSH 10 ML FLUSH IV FLUSH SCH ×2 (08:37→21:00)
--- NOTE | 2017-08-24 11:16 | HHI.HP ---
HPI Service [facility] Hospitalists Primary Care Physician Unknown Admission Diagnosis acute renal failure, hyperkalemia Diagnoses: (1) Hyperkalemia (2) ARF (acute renal failure) Chief Complaint: Nausea and feeling weak Travel History International Travel<30 Days: No Contact w/Intl Traveler <30 Da: No Traveled to Known Affected Are: No History of Present Illness 81-year-old female with a past medical history of hypertension, GA, dementia was brought to the ED for evaluation of an acute onset of episode of nausea without vomiting however associated with generalized weakness as well as headache x3 days duration after patient was prescribed Tamiflu. She has no diarrhea episodes. She reported decreased appetite. Abnormal labs include potassium 6.6 and BUN/reactive in 51/2.40. On admission, patient has BP of 96/ 51 over was afebrile with oxygen saturation of 96% on room air. Review of Systems Except as stated in HPI: all other systems reviewed are Neg Past Family Social History Past Medical History CAD/Prior GA in December of 2015 Dementia CVA HTN Hyperlipidemia Depression GERD Hypothyroidism Past Surgical History Cardiac catheterization with stenting ORIF left ankle Hysterectomy Appendectomy Cholecystectomy Bladder suspension Partial left knee replacement Tonsillectomy Right breast lumpectomy x 2 Reported Medications Clonazepam 0.5 Mg Tab 0.5 Mg PO BID Lyrica (Pregabalin) 75 Mg Cap 75 Mg PO BID Pantoprazole (Pantoprazole Sodium) 40 Mg Tab 40 Mg PO DAILY Klor-Con 10 (Potassium Chloride) 10 Meq Tab 10 Meq PO DAILY Levothyroxine (Levothyroxine Sodium) 100 Mcg Tab 100 Mcg PO DAILY Glimepiride 1 Mg Tab 1 Mg PO BID Take with breakfast or first main meal Ranitidine 75 (Ranitidine HCl) 75 Mg Tab 150 Mg PO DAILY Take 30 to 60 minutes before eating food or drinking beverages that cause heartburn. Simvastatin 20 Mg Tab 20 Mg PO DAILY Losartan (Losartan Potassium) 50 Mg Tab 50 Mg PO DAILY Clopidogrel (Clopidogrel Bisulfate) 75 Mg Tab 75 Mg PO DAILY Spironolactone 25 Mg Tab 25 Mg PO DAILY Carvedilol 6.25 Mg Tab 12.5 Mg PO BID Bisoprolol (Bisoprolol Fumarate) 5 Mg Tab 5 Mg PO BID Allergies: Coded Allergies: *MDRO Multi-Drug Resistant Organism (Verified Adverse Reaction, Unknown, 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 PCR negative - 12/29/15 & 01/01/16 VRE PCR negative - 01/01/16 & 01/03/16 Cleared per Infection Control 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/08/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) - 06/28/13 Family History Due To patient's advanced age, family history not relevant Social History Patient denies tobacco, alcohol or illicit drug intake Physical Exam Vital Signs Vital Signs Date Time Temp Pulse Resp B/P (MAP) Pulse Ox O2 Delivery O2 Flow Rate FiO2 08/24/17 08:00 96.0 58 20 130/69 (89) 98 08/24/17 05:44 98.0 60 18 111/54 (73) 94 08/24/17 00:42 97.9 63 16 130/60 (83) 94 08/24/17 00:17 62 08/23/17 23:28 67 18 118/69 (85) 95 08/23/17 22:30 71 18 128/67 (87) 95 Room Air 08/23/17 21:30 64 18 129/61 (83) 93 Room Air 08/23/17 20:30 94 Room Air 08/23/17 20:00 75 18 120/57 (78) 96 Room Air 08/23/17 19:35 18 08/23/17 18:35 97.3 72 16 96/51 (66) 96 Physical Exam GENERAL: This is a well-nourished, well-developed patient, in no apparent distress. SKIN: No rashes, ecchymoses or lesions. Cool and dry. HEAD: Atraumatic. Normocephalic. No temporal or scalp tenderness. EYES: Pupils equal round and reactive. Extraocular motions intact. No scleral icterus. No injection or drainage. ENT: Nose without bleeding, purulent drainage or septal hematoma. Throat without erythema, tonsillar hypertrophy or exudate. Uvula midline. Airway patent. NECK: Trachea midline. No JVD or lymphadenopathy. Supple, nontender, no meningeal signs. CARDIOVASCULAR: Regular rate and rhythm without murmurs, gallops, or rubs. RESPIRATORY: Clear to auscultation. Breath sounds equal bilaterally. No wheezes , rales, or rhonchi. GASTROINTESTINAL: Abdomen soft, non-tender, nondistended. No hepato-splenomegaly , or palpable masses. No guarding. MUSCULOSKELETAL: Extremities without clubbing, cyanosis, or edema. No joint tenderness, effusion, or edema noted. No calf tenderness. Negative Homans sign bilaterally. NEUROLOGICAL: Awake and alert. Cranial nerves II through XII intact. Motor and sensory grossly within normal limits. Five out of 5 muscle strength in all muscle groups. Normal speech. Laboratory Laboratory Tests Test 08/23/17 19:55 08/24/17 00:40 08/24/17 02:10 08/24/17 05:00 White Blood Count 12.5 9.2 Red Blood Count 5.27 4.16 Hemoglobin 15.3 12.1 Hematocrit 46.9 36.9 Mean Corpuscular Volume 89.0 88.8 Mean Corpuscular Hemoglobin 29.0 29.1 Mean Corpuscular Hemoglobin Concent 32.6 32.7 Red Cell Distribution Width 14.4 14.2 Platelet Count 238 200 Mean Platelet Volume 9.3 9.1 Neutrophils (%) (Auto) 71.4 58.5 Lymphocytes (%) (Auto) 21.3 31.5 Monocytes (%) (Auto) 5.8 8.3 Eosinophils (%) (Auto) 0.8 1.2 Basophils (%) (Auto) 0.7 0.5 Neutrophils # (Auto) 8.9 5.4 Lymphocytes # (Auto) 2.7 2.9 Monocytes # (Auto) 0.7 0.8 Eosinophils # (Auto) 0.1 0.1 Basophils # (Auto) 0.1 0.0 CBC Comment DIFF FINAL DIFF FINAL Differential Comment Blood Urea Nitrogen 51 48 44 Creatinine 2.40 1.90 1.80 Random Glucose 134 79 186 Calcium Level 8.9 8.5 8.2 Sodium Level 135 140 140 Potassium Level 6.6 5.0 4.5 Chloride Level 105 109 109 Carbon Dioxide Level 21.6 24.6 24.1 Anion Gap 8 6 7 Estimat Glomerular Filtration Rate 19 25 27 Troponin I LESS THAN 0.02 Urine Collection Type CATH Urine Color YELLOW Urine Turbidity MOD Urine pH 5.5 Urine Specific [place] 1.013 Urine Protein NEG Urine Glucose (UA) NEG Urine Ketones NEG Urine Occult Blood NEG Urine Nitrite POS Urine Bilirubin NEG Urine Leukocyte Esterase NEG Urine WBC 3-5 Urine WBC Clumps OCC Urine Squamous Epithelial Cells 0-5 Urine Bacteria MANY Urine Hyaline Casts 0-2 Urine Mucus FEW Microscopic Urinalysis Comment CATH-CULTURE IND Total Protein 6.2 Albumin 2.7 Alkaline Phosphatase 88 Aspartate Amino Transf (AST/SGOT) 14 Alanine Aminotransferase (ALT/SGPT) 13 Total Bilirubin 0.4 Date/Time Source Procedure Growth Status 08/24/17 02:10 Urine Catheterized Urine Urine Culture Pending Received Result Diagram: 08/24/17 0500 08/24/17 0500 Imaging Last Impressions Renal Ultrasound 08/23/17 0000 Signed Impressions: Service Date/Time: Wednesday, August 23, 2017 22:16 - CONCLUSION: 1. Hydronephrosis on the left of uncertain etiology. 2. Chronic parenchymal changes. 3. Small, benign cyst of the right lower pole. Isiah Colorado MD Head CT 08/23/17 0000 Signed Impressions: Service Date/Time: Wednesday, August 23, 2017 19:39 - CONCLUSION: No acute intracranial abnormality. Isiah Colorado MD Septic Shock Reassessment Septic shock perfusion: reassessment completed Caprini VTE Risk Assessment Caprini VTE Risk Assessment: Mod/High Risk (score >= 2) Caprini Risk Assessment Model Point Value = 1 Point Value = 2 Point Value = 3 Point Value = 5 Age 41-60 Minor surgery BMI > 25 kg/m2 Swollen legs Varicose veins or History of unexplained or recurrent spontaneous Oral contraceptives or hormone replacement Sepsis (< 1 month) Serious lung disease, including pneumonia (< 1 month) Abnormal pulmonary function Acute myocardial infarction Congestive heart failure (< 1 month) History of inflammatory bowel disease Medical patient at bed rest Age 61-74 Arthroscopic surgery Major open surgery (> 45 min) Laparoscopic surgery (> 45 min) Malignancy Confined to bed (> 72 hours) Immobilizing plaster cast Central venous access Age >= 75 History of VTE Family history of VTE Factor V Leiden Prothrombin [id number] Lupus anticoagulant Anticardiolipin antibodies Elevated serum homocysteine Heparin-induced thrombocytopenia Other congenital or acquired thrombophilia Stroke (< 1 month) Elective arthroplasty Hip, pelvis, or leg fracture Acute spinal cord injury (< 1 month) Prophylaxis Regimen Total Risk Factor Score Risk Level Prophylaxis Regimen 0-1 Low Early ambulation 2 Moderate Order ONE of the following: *Sequential Compression Device (SCD) *Heparin 5000 units SQ BID 3-4 Higher Order ONE of the following medications: *Heparin 5000 units SQ TID *Enoxaparin/Lovenox 40 mg SQ daily (WT < 150 kg, CrCl > 30 mL/min) *Enoxaparin/Lovenox 30 mg SQ daily (WT < 150 kg, CrCl > 10-29 mL/min) *Enoxaparin/Lovenox 30 mg SQ BID (WT < 150 kg, CrCl > 30 mL/min) AND/OR *Sequential Compression Device (SCD) 5 or more Highest Order ONE of the following medications: *Heparin 5000 units SQ TID (Preferred with Epidurals) *Enoxaparin/Lovenox 40 mg SQ daily (WT < 150 kg, CrCl > 30 mL/min) *Enoxaparin/Lovenox 30 mg SQ daily (WT < 150 kg, CrCl > 10-29 mL/min) *Enoxaparin/Lovenox 30 mg SQ BID (WT < 150 kg, CrCl > 30 mL/min) AND *Sequential Compression Device (SCD) Assessment and Plan Problem List: (1) Hyperkalemia ICD Code: E87.5 - Hyperkalemia Status: Acute (2) ARF (acute renal failure) ICD Code: N17.9 - Acute kidney failure, unspecified Status: Acute (3) Headache ICD Code: R51 - Headache (4) Hypotension ICD Code: I95.9 - Hypotension, unspecified (5) UTI (urinary tract infection) ICD Code: N39.0 - Urinary tract infection, site not specified Assessment and Plan 81-year-old female with Hyperkalemia-resolved s/p Treatment with IV calcium gluconate, IV bicarbonate, IV insulin and D50 and albuterol nebulizers Hold Aldactone, potassium supplement Hypotension Resolved with IV hydration Acute renal failure Renal ultrasound noted and review by me finding of hydronephrosis on the left was unremarkable Renal indices improving 51/2.40----->44/1.80 with current IV fluid hydration Continue to monitor BUN/creatinine and avoid all nephrotoxic drugs UTI Start Rocephin 1 g IV daily pending urine culture Headache-now resolved CT head noted and review by me without any intracranial abnormality Tylenol when necessary Generalized weakness PT to treat and eval History of diabetes type 2 Hold oral hypoglycemic agents, continue with insulin sliding scale Other chronic medical conditions within hypertension/hyperlipidemia/neuropathy/ CAD Resume outpatient medications except Aldactone, losartan, Coreg DVT prophylaxis: Bilateral SCDs Code Status DNR Discussed Condition With Patient Physician Certification 2 Midnight Certification Type: Admission for Inpatient Services Order for Inpatient Services The services are ordered in accordance with Medicare regulations or non- Medicare payer requirements, as applicable. In the case of services not specified as inpatient-only, they are appropriately provided as inpatient services in accordance with the 2-midnight benchmark. Estimated LOS (days): 2 days is the estimated time the patient will need to remain in the hospital, assuming treatment plan goals are met and no additional complications. Post-Hospital Plan: Not yet determined Problem Qualifiers (1) ARF (acute renal failure): Qualified Codes: N17.9 - Acute kidney failure, unspecified Rigoberto Fabian MD Aug 24, 2017 11:16
[2017-08-24] MEDS: CLOPIDOGREL 75 MG TAB PO SCH (13:31)
--- NOTE | 2017-08-24 16:57 | PD.CONS ---
HPI Service Nephrology Consult Requested By Dr. Fabian Reason for Consult [facility] Primary Care Physician Unknown History of Present Illness The patient is an 81 yo [place] female who presented to this facility on 08/23 with 5 day complaint of fatigue, weakness, N/V, fever. Says that she went to the urgent care 2 days ago and was told she had the flu and was using Tamiflu x2 days. When symptoms worsened, she decided to come to the ED for evaluation. Denies any home NSAID use. Otherwise, home medications are questionable as she says she doesn't know what she takes. Daughter present in the room who says that the patient lives on her own, but the patient's other daughter comes and checks on her periodically. She has "home docs" as a primary care. Admitting SCr 2.40 that improved to 1.80 at time of consult. Previous renal functions appear to be fairly well maintained with baseline SCr of 0.7-0.8 Renal US reviewed that shows a left sided hydronephrosis. Denies any known hx of kidney stones. Mentions that she previously was seeing Dr. Sanchez for what appears to be OAB, but this is not entirely clear. Has not been seen by urologist in many years. RN states that a bladder scan was done today showing 500cc of retained urine and required straight cath. Currently, she says she is feeling OK. Is quite anxious to go home. (Patsy Stallworth) Review of Systems Constitutional: COMPLAINS OF: Fatigue (Patsy Stallworth) Past Family Social History Allergies: Coded Allergies: *MDRO Multi-Drug Resistant Organism (Verified Adverse Reaction, Unknown, 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 PCR negative - 12/29/15 & 01/01/16 VRE PCR negative - 01/01/16 & 01/03/16 Cleared per Infection Control 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/08/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) - 06/28/13 Past Medical History CAD s/p DC and PTCA x2 CVA HTN HLD Depression GERD OAB? Past Surgical History PTCA x2 ORIF L ankle Hysterectomy Appendectomy Cholecystectomy Bladder lift Hx of InterStim placement Partial knee replacement Breast lumpectomy x2 Reported Medications Tylenol (Acetaminophen) 325 Mg Tab 325 Mg PO Q4H PRN Clonazepam 0.5 Mg Tab 0.5 Mg PO BID Lyrica (Pregabalin) 75 Mg Cap 75 Mg PO BID Pantoprazole (Pantoprazole Sodium) 40 Mg Tab 40 Mg PO DAILY Klor-Con 10 (Potassium Chloride) 10 Meq Tab 10 Meq PO DAILY Levothyroxine (Levothyroxine Sodium) 100 Mcg Tab 100 Mcg PO DAILY Glimepiride 1 Mg Tab 1 Mg PO BID Take with breakfast or first main meal Ranitidine 75 (Ranitidine HCl) 75 Mg Tab 150 Mg PO DAILY Take 30 to 60 minutes before eating food or drinking beverages that cause heartburn. Simvastatin 20 Mg Tab 20 Mg PO DAILY Losartan (Losartan Potassium) 50 Mg Tab 50 Mg PO DAILY Clopidogrel (Clopidogrel Bisulfate) 75 Mg Tab 75 Mg PO DAILY Spironolactone 25 Mg Tab 25 Mg PO DAILY Carvedilol 6.25 Mg Tab 12.5 Mg PO BID Bisoprolol (Bisoprolol Fumarate) 5 Mg Tab 5 Mg PO BID Active Ordered Medications Current Medications Medications (Trade) Dose Ordered Sig/Daxa Route Start Time Stop Time Status Last Admin (D50w (Vial) Inj) 50 ml UNSCH PRN IV PUSH 08/23/17 21:30 (Glucagon Inj) 1 mg UNSCH PRN OTHER 08/23/17 21:30 (NovoLOG SUPPLEMENTAL SCALE) 1 ACHS SLIDING SCALE SQ 08/24/17 08:00 Sodium Chloride 1,000 ml @ 100 mls/hr Q10H IV 08/23/17 21:25 08/24/17 05:26 (NS Flush) 2 ml UNSCH PRN IV FLUSH 08/23/17 21:30 (NS Flush) 2 ml BID IV FLUSH 08/24/17 09:00 08/24/17 08:37 (Zofran Inj) 4 mg Q6H PRN IVP 08/23/17 21:30 (Tylenol) 650 mg Q6H PRN PO 08/23/17 21:30 ([place] 5-325 Mg) 1 tab Q4H PRN PO 08/23/17 21:30 (Morphine Inj) 2 mg Q3H PRN IV PUSH 08/23/17 21:30 (Brianna-Colace) 1 tab BID PO 08/24/17 09:00 (Milk Of Magnesia Liq) 30 ml Q12H PRN PO 08/23/17 21:30 (Senokot) 17.2 mg Q12H PRN PO 08/23/17 21:30 (Dulcolax Supp) 10 mg DAILY PRN RECTAL 08/23/17 21:30 (Lactulose Liq) 30 ml DAILY PRN PO 08/23/17 21:30 (Plavix) 75 mg DAILY PO 08/24/17 13:00 08/24/17 13:31 (Synthroid) 100 mcg DAILY@0600 PO 08/25/17 06:00 (Lyrica) 75 mg BID PO 08/24/17 21:00 (Zebeta) 5 mg BID PO 08/24/17 21:00 (Pepcid) 20 mg BID PO 08/24/17 21:00 (Pravachol) 40 mg DAILY PO 08/25/17 09:00 Ceftriaxone Sodium 1000 mg/ Sodium Chloride 100 ml @ 200 mls/hr Q24H IV 08/24/17 16:00 Family History NC Social History Denies EtOH, tobacco, illicits (Patsy Stallworth) Physical Exam Vital Signs Vital Signs Date Time Temp Pulse Resp B/P (MAP) Pulse Ox O2 Delivery O2 Flow Rate FiO2 08/24/17 12:00 96.0 66 18 153/89 (110) 97 08/24/17 08:00 96.0 58 20 130/69 (89) 98 08/24/17 05:44 98.0 60 18 111/54 (73) 94 08/24/17 00:42 97.9 63 16 130/60 (83) 94 08/24/17 00:17 62 08/23/17 23:28 67 18 118/69 (85) 95 08/23/17 22:30 71 18 128/67 (87) 95 Room Air 08/23/17 21:30 64 18 129/61 (83) 93 Room Air 08/23/17 20:30 94 Room Air 08/23/17 20:00 75 18 120/57 (78) 96 Room Air 08/23/17 19:35 18 08/23/17 18:35 97.3 72 16 96/51 (66) 96 Physical Exam GENERAL: Pt in NAD. Sitting on couch in exam room. SKIN: Warm and dry. HEAD: Atraumatic. Normocephalic. EYES: Pupils equal and round. No scleral icterus. No injection or drainage. ENT: No nasal bleeding or discharge. Mucous membranes pink and moist. NECK: Trachea midline. No JVD. CARDIOVASCULAR: Regular rate and rhythm. RESPIRATORY: No accessory muscle use. Clear to auscultation. Breath sounds equal bilaterally. GASTROINTESTINAL: Abdomen soft, non-tender, nondistended. Hepatic and splenic margins not palpable. MUSCULOSKELETAL: Extremities without clubbing, cyanosis, or edema. No obvious deformities. NEUROLOGICAL: Awake and alert. Normal speech. PSYCHIATRIC: Appropriate mood and affect; insight and judgment normal. Laboratory Laboratory Tests Test 08/23/17 19:55 08/24/17 00:40 08/24/17 02:10 08/24/17 05:00 White Blood Count 12.5 9.2 Red Blood Count 5.27 4.16 Hemoglobin 15.3 12.1 Hematocrit 46.9 36.9 Mean Corpuscular Volume 89.0 88.8 Mean Corpuscular Hemoglobin 29.0 29.1 Mean Corpuscular Hemoglobin Concent 32.6 32.7 Red Cell Distribution Width 14.4 14.2 Platelet Count 238 200 Mean Platelet Volume 9.3 9.1 Neutrophils (%) (Auto) 71.4 58.5 Lymphocytes (%) (Auto) 21.3 31.5 Monocytes (%) (Auto) 5.8 8.3 Eosinophils (%) (Auto) 0.8 1.2 Basophils (%) (Auto) 0.7 0.5 Neutrophils # (Auto) 8.9 5.4 Lymphocytes # (Auto) 2.7 2.9 Monocytes # (Auto) 0.7 0.8 Eosinophils # (Auto) 0.1 0.1 Basophils # (Auto) 0.1 0.0 CBC Comment DIFF FINAL DIFF FINAL Differential Comment Blood Urea Nitrogen 51 48 44 Creatinine 2.40 1.90 1.80 Random Glucose 134 79 186 Calcium Level 8.9 8.5 8.2 Sodium Level 135 140 140 Potassium Level 6.6 5.0 4.5 Chloride Level 105 109 109 Carbon Dioxide Level 21.6 24.6 24.1 Anion Gap 8 6 7 Estimat Glomerular Filtration Rate 19 25 27 Troponin I LESS THAN 0.02 Urine Collection Type CATH Urine Color YELLOW Urine Turbidity MOD Urine pH 5.5 Urine Specific [place] 1.013 Urine Protein NEG Urine Glucose (UA) NEG Urine Ketones NEG Urine Occult Blood NEG Urine Nitrite POS Urine Bilirubin NEG Urine Leukocyte Esterase NEG Urine WBC 3-5 Urine WBC Clumps OCC Urine Squamous Epithelial Cells 0-5 Urine Bacteria MANY Urine Hyaline Casts 0-2 Urine Mucus FEW Microscopic Urinalysis Comment CATH-CULTURE IND Total Protein 6.2 Albumin 2.7 Alkaline Phosphatase 88 Aspartate Amino Transf (AST/SGOT) 14 Alanine Aminotransferase (ALT/SGPT) 13 Total Bilirubin 0.4 Date/Time Source Procedure Growth Status 08/24/17 02:10 Urine Catheterized Urine Urine Culture Pending Received (Patsy Stallworth) Result Diagram: 08/24/17 0500 08/24/17 0500 Imaging Last Impressions Renal Ultrasound 08/23/17 0000 Signed Impressions: Service Date/Time: Wednesday, August 23, 2017 22:16 - CONCLUSION: 1. Hydronephrosis on the left of uncertain etiology. 2. Chronic parenchymal changes. 3. Small, benign cyst of the right lower pole. Isiah Colorado MD Head CT 08/23/17 0000 Signed Impressions: Service Date/Time: Wednesday, August 23, 2017 19:39 - CONCLUSION: No acute intracranial abnormality. Isiah Colorado MD (Patsy Stallworth) Assessment and Plan Problem List: (1) ARF (acute renal failure) ICD Codes: N17.9 - Acute kidney failure, unspecified Status: Acute Plan: Renal functions have improved overnight with hydration indicating some degree of prerenal failure related to volume depletion and poor oral intake. She does, however, have significant urinary retention and a left sided hydronephrosis on imaging. Asked RN to do bladder scan now. If any more than 200cc urine (just went to urinate), we will place Abraham catheter. Will order CT abdomen/pelvis and request urological consultation. Home medications not entirely clear. Mention of Protonix which can be associated to interstitial nephritis---will check urine for eosinophils. Continue to hold Spironolactone, KCl, and Losartan for the present. Mentions hx of CAD with PTCA but no known CHF (echo February 2016 shows a mildly diminished EF of 50-55%). Says she previously was seeing Dr. Vasques and had one visit with Dr. Lacy, but does not actively follow with cardiology. Will follow with labs in the AM. If renal functions continue to improve, we will see in the periphery and recommend that she follow up with nephrology as an outpatient. Please call if needed. Medications should be adjusted for the patient's renal decline. Avoid nephrotoxic medications such as iodinated contrast dyes and NSAIDs. Avoid gadolinium with eGFR <30. (2) Hydronephrosis of left kidney ICD Codes: N13.30 - Unspecified hydronephrosis Plan: Check CT ab/pelvis and request urological consultation (3) UTI (urinary tract infection) ICD Codes: N39.0 - Urinary tract infection, site not specified Plan: UCx pending. Abx as ordered by primary (4) Hyperkalemia ICD Codes: E87.5 - Hyperkalemia Status: Acute Plan: Resolved. Was likely related to renal insufficiency as well as potassium sparing medications. (Patsy Stallworth) Assessment and Plan The exam, history, and the medical decision-making described in the above note were completed with the assistance of the PADeena. I reviewed and agree with the findings presented. (Liberty Sethi MD) Problem Qualifiers (1) ARF (acute renal failure): Qualified Codes: N17.9 - Acute kidney failure, unspecified Patsy Stallworth Aug 24, 2017 16:57 Liberty Sethi MD Aug 27, 2017 19:01
[2017-08-24] MEDS: cefTRIAXone INJ 1,000 MG in SODIUM CHLORIDE 0.9% INJ 100 ML IV SCH (18:06)
--- NOTE | 2017-08-24 18:37 | EKG ---
Date Performed: 08/23/2017 Time Performed: 21:11:53 PTAGE: 81 years EKG: Sinus rhythm LOW QRS VOLTAGE IN PRECORDIAL LEADS MODERATE VOLTAGE CRITERIA FOR LVH, CONSIDER NORMAL VARIANT Consi ben inferior MYOCARDIAL INFARCTION- age undeterminate. INFERIOR MYOCARDIAL INFARCTION. ABNORMAL ECG PREVIOUS TRACING : 04/24/2016 20.22 DOCTOR: Chandrakant Stokes Interpretating Date/Time 08/24/2017 18:35:55
[2017-08-24] MEDS: TEMAZEPAM 15 MG CAP PO PRN (21:28)
[2017-08-24] MEDS: PREGABALIN 75 MG CAP PO SCH (21:28)
[2017-08-24] MEDS: FAMOTIDINE 20 MG TAB PO SCH (21:29)
[2017-08-24] MEDS: BISOPROLOL FUMARATE 5 MG TAB PO SCH (21:29)
--- NOTE | 2017-08-24 23:18 | RADRPT ---
EXAM DATE/TIME: 08/24/2017 20:39 [facility] COMPARISON: No previous studies available for comparison. INDICATIONS : Diffuse abdominal pain. Evaluate for obstruction. ORAL CONTRAST: No oral contrast ingested. RADIATION DOSE: 18.62 CTDIvol (mGy) MEDICAL HISTORY : Diabetes mellitus type 2. Hypertension. SURGICAL HISTORY : Appendectomy. Cholecystectomy.Coronary artery stent.Pain stimulator. AV shunt. Bladder. ENCOUNTER: Initial ACUITY: 2 days PAIN SCALE: 3/10 LOCATION: Bilateral lower quadrant upper quadrant TECHNIQUE: Volumetric scanning of the abdomen and pelvis was performed. Using automated exposure control and ad justment of the mA and/or kV according to patient size, radiation dose was kept as low as reasonably achievable to obtain optimal diagnostic quality images. DICOM format image data is available electro nically for review and comparison. FINDINGS: LOWER LUNGS: Scattered fibrotic scarring is noted within the lung bases. LIVER: Homogeneous density without lesion. There is no dilation of the biliary tree. Status post cholecyste ctomy. No calcified gallstones. SPLEEN: Normal size without lesion. PANCREAS: Within normal limits. KIDNEYS: Normal in size and shape. There is no mass, stone, or hydronephrosis. ADRENAL GLANDS: Within normal limits. VASCULAR: There is no aortic aneurysm. BOWEL/MESENTERY: The stomach, small bowel, and colon demonstrate no acute abnormality. There is no free intraperitone al air or fluid. ABDOMINAL WALL: Within normal limits. RETROPERITONEUM: There is no lymphadenopathy. BLADDER: The bladder is collapsed and contains a Abraham catheter. REPRODUCTIVE: Within normal limits. INGUINAL: There is no lymphadenopathy or hernia. MUSCULOSKELETAL: Degenerative changes are noted throughout the thoracolumbar spine. CONCLUSION: 1. No acute intra-abdominal process. 2. Scattered bibasilar fibrotic changes within the lungs. 3. Degenerative changes of the thoracolumbar spine. Serafin Villeda MD on August 24, 2017 at 23:12 Board Certified Radiologist. This report was verified electronically.
[2017-08-25] VITALS (7 sets, daily range): BP systolic 126–188; BP diastolic 65–84; PULSE 58–107; RESP 14–18; TEMP 96.1–98.5; O2SAT 92–99
[2017-08-25] MEDS: SODIUM CHLOR 0.9% 1000 ML INJ 1,000 ML IV SCH ×3 (02:45→21:48)
[2017-08-25] MEDS: LEVOTHYROXINE SODIUM 100 MCG TAB PO SCH (05:43)
[2017-08-25 06:53] LABS: ALBUMIN 2.7 GM/DL (3.4-5.0); CALCIUM 8.1 MG/DL (8.5-10.1)
[2017-08-25 06:54] LABS: BICARBONATE 23.7 MEQ/L (21.0-32.0)
[2017-08-25 07:02] LABS: CREATININE 1.1 MG/DL (0.50-1.00); PHOSPHORUS 3.2 MG/DL (2.5-4.9)
[2017-08-25] MEDS: INSULIN ASPART SUPPLEMENTAL SCALE SQ SCH ×4 (08:00→21:00)
--- NOTE | 2017-08-25 08:28 | HHI.PR ---
Subjective Remarks Pt states she has a headache 6/10 however no nausea or vomiting. No abdominal pain. Has a cough but hasn't worsened. Feels much better and would like to go home soon. She is worried about her cats and wants to go care for them. Upset that they didn't give her her skim milk yesterday and this morning. Objective Vitals Vital Signs Date Time Temp Pulse Resp B/P (MAP) Pulse Ox O2 Delivery O2 Flow Rate FiO2 08/25/17 04:00 98.0 58 18 155/67 (96) 98 08/25/17 01:07 126/65 (85) 08/25/17 00:00 98.5 71 18 188/84 (118) 98 08/24/17 20:13 64 08/24/17 20:00 98.1 64 16 154/75 (101) 95 08/24/17 18:00 98.2 68 14 170/54 (92) 99 08/24/17 12:00 96.0 66 18 153/89 (110) 97 I/O 08/24/17 08/24/17 08/24/17 08/25/17 08/25/17 08/25/17 07:00 15:00 23:00 07:00 15:00 23:00 Intake Total 1000 ml 480 ml 1421 ml 1551 ml Output Total 1000 ml 200 ml 300 ml Balance 0 ml 280 ml 1121 ml 1551 ml Intake Oral 480 ml 240 ml 740 ml IV Total 1000 ml 1181 ml 811 ml Output Urine Total 1000 ml 200 ml 300 ml Bladder Scan Volume Amount 501 ml 223 ml # Voids 2 3 6 4 # Bowel Movements 0 1 1 2 Result Diagram: 08/24/17 0500 08/25/17 0510 Imaging Last Impressions Abdomen/Pelvis CT 08/24/17 0000 Signed Impressions: Service Date/Time: Thursday, August 24, 2017 20:39 - CONCLUSION: 1. No acute intra-abdominal process. 2. Scattered bibasilar fibrotic changes within the lungs. 3. Degenerative changes of the thoracolumbar spine. Serafin Villeda MD Renal Ultrasound 08/23/17 0000 Signed Impressions: Service Date/Time: Wednesday, August 23, 2017 22:16 - CONCLUSION: 1. Hydronephrosis on the left of uncertain etiology. 2. Chronic parenchymal changes. 3. Small, benign cyst of the right lower pole. Isiah Colorado MD Head CT 08/23/17 0000 Signed Impressions: Service Date/Time: Wednesday, August 23, 2017 19:39 - CONCLUSION: No acute intracranial abnormality. Isiah Colorado MD Objective Remarks GENERAL: This is a well-nourished, well-developed patient, laying in bed EYES: Extraocular motions intact. ENT: Nose without drainage. Airway patent. NECK: Trachea midline. CARDIOVASCULAR: Regular rate and rhythm without murmurs RESPIRATORY: Clear to auscultation. Breath sounds equal bilaterally. No wheezes GASTROINTESTINAL: Abdomen soft, non-tender, nondistended. No guarding. MUSCULOSKELETAL: Extremities with trace edema. NEUROLOGICAL: Awake and alert. Motor and sensory grossly within normal limits. Normal speech. A/P Problem List: (1) Hyperkalemia ICD Code: E87.5 - Hyperkalemia Status: Acute (2) ARF (acute renal failure) ICD Code: N17.9 - Acute kidney failure, unspecified Status: Acute (3) Headache ICD Code: R51 - Headache (4) Hypotension ICD Code: I95.9 - Hypotension, unspecified (5) UTI (urinary tract infection) ICD Code: N39.0 - Urinary tract infection, site not specified Assessment and Plan 81-year-old female with Hyperkalemia-resolved s/p Treatment with IV calcium gluconate, IV bicarbonate, IV insulin and D50 and albuterol nebulizers Continue to Hold Aldactone, potassium supplement Hypotension Resolved with IV hydration, now Hypertensive. Added low dose amlodipine 2.5 mg po daily. Acute renal failure Renal ultrasound noted and showing hydronephrosis on the left Renal indices improving 51/2.40----->44/1.80-->25/1.10 with current IV fluid hydration Continue to monitor BUN/creatinine and avoid all nephrotoxic drugs UTI on Rocephin 1 g IV daily. urine cx pending. Headache- CT head noted and review by me without any intracranial abnormality Tylenol when necessary. Pt apparently took morphine for her headache and it helped. Generalized weakness PT to treat and eval History of diabetes type 2 Hold oral hypoglycemic agents, continue with insulin sliding scale Other chronic medical conditions within hypertension/hyperlipidemia/neuropathy/ CAD Resume outpatient medications except Aldactone, losartan, Coreg DVT prophylaxis: Bilateral SCDs Discharge Planning Pt will need home health PT. Face to face completed. awaiting recs from urology and final recs from nephrology f/u on urine cx. replete calcium w tums Problem Qualifiers (1) ARF (acute renal failure): Qualified Codes: N17.9 - Acute kidney failure, unspecified Callie Jeronimo MD Aug 25, 2017 08:28
--- NOTE | 2017-08-25 08:29 | HHI.FF ---
Face to Face Verification Diagnosis: (1) ARF (acute renal failure) (2) UTI (urinary tract infection) (3) Hydronephrosis of left kidney Physical Therapy Order: Evaluate and Treat Home Health Nursing Order: Nursing assessment with vital signs I have seen patient Aranza Farrar on 08/25/17. My clinical findings support the need for the requested home health care services because: Patient was evaluated by PT at the hospital and PT recommended home health PT Deconditioned w/ increased weakness I certify that my clinical findings support that this patient is homebound because: Patient was evaluated by PT at the hospital and PT recommended home health PT Unsteady gait/balance Callie Jeronimo MD Aug 25, 2017 08:29
[2017-08-25] MEDS ORDERED: PILL SPLITTER OTHER PRN (08:30)
[2017-08-25] MEDS: DOCUSATE SODIUM 50 MG/SENNA 8.6 MG TAB PO SCH ×2 (08:46→21:46)
[2017-08-25] MEDS: PRAVASTATIN SOD 40 MG TAB PO SCH (08:46)
[2017-08-25] MEDS: FAMOTIDINE 20 MG TAB PO SCH ×2 (08:46→21:46)
[2017-08-25] MEDS: CLOPIDOGREL 75 MG TAB PO SCH (08:46)
[2017-08-25] MEDS: CALCIUM CARBONATE 500 MG CHEWABLE TAB CHEW SCH ×2 (08:46→21:45)
[2017-08-25] MEDS: BISOPROLOL FUMARATE 5 MG TAB PO SCH ×2 (08:47→21:45)
[2017-08-25] MEDS: PREGABALIN 75 MG CAP PO SCH ×2 (08:47→21:46)
[2017-08-25] MEDS: SODIUM CHLORIDE 0.9% FLUSH 10 ML FLUSH IV FLUSH SCH ×2 (08:47→21:00)
[2017-08-25] MEDS ORDERED: amLODIPine BESYLATE 5 MG TAB PO SCH (09:00)
[2017-08-25] MEDS: ACETAMINOPHEN/HYDROcodone 325 MG/5 MG TAB PO PRN ×2 (10:09→21:47)
[2017-08-25] MEDS: cefTRIAXone INJ 1,000 MG in SODIUM CHLORIDE 0.9% INJ 100 ML IV SCH (16:00)
--- NOTE | 2017-08-25 17:39 | PD.CONS ---
[facility] Service Urology Consult Requested By Dr. Stallworth Reason for Consult Left hydronephrosis Primary Care Physician Unknown Diagnosis: (1) Hyperkalemia ICD Code: E87.5 - Hyperkalemia (2) ARF (acute renal failure) ICD Code: N17.9 - Acute kidney failure, unspecified (3) Headache ICD Code: R51 - Headache (4) Hypotension ICD Code: I95.9 - Hypotension, unspecified (5) UTI (urinary tract infection) ICD Code: N39.0 - Urinary tract infection, site not specified History of Present Illness 81-year-old female with history voiding dysfunction who was admitted for generalized weakness, flulike symptoms and abnormal blood studies. Patient was noted to have elevation in the BUN/creatinine measuring 51 and 2.40 respectively. A renal ultrasound study was performed that demonstrated left hydronephrosis. A Abraham catheter was placed and a subsequent CT scan study performed that demonstrated resolution of the hydronephrosis. Subsequent BUN and creatinine levels have improved with Abraham catheter drainage. A urology consult was placed regarding the left hydronephrosis seen on the renal ultrasound. Upon further questioning, the patient reports that she had been under the care of Dr. Sanchez a local urologist for many years for incomplete bladder emptying. She also reports having had a InterStim device placed for voiding dysfunction and that over time the device failed due to a dislodged wire. Interestingly, the patient reports that her voiding pattern had remained acceptable to her despite failure of the device. She reports that her voiding pattern has remained stable over the past several years. Review of Systems Constitutional: DENIES: Fever, Night Sweats Cardiovascular: DENIES: Chest pain Gastrointestinal: DENIES: Abdominal pain Genitourinary: DENIES: Hematuria Musculoskeletal: DENIES: Back pain Except as stated in HPI: all other systems reviewed are Neg Past Family Social History Past Medical History Voiding dysfunction with incomplete bladder emptying Coronary artery disease Dementia History CVA Hypertension GERD Hypothyroidism Depression Past Surgical History Cardiac stents ORIF left ankle Bladder suspension surgery Left knee replacement surgery Right breast lumpectomy Appendectomy Cholecystectomy Hysterectomy Reported Medications Refer to EMR Allergies: Coded Allergies: *MDRO Multi-Drug Resistant Organism (Verified Adverse Reaction, Unknown, 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 PCR negative - 12/29/15 & 01/01/16 VRE PCR negative - 01/01/16 & 01/03/16 Cleared per Infection Control 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/08/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) - 06/28/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 Ordered Medications Refer to EMR Family History Reviewed and noncontributory Social History Denies history tobacco, alcohol or intravenous drug abuse Physical Exam Vital Signs Date Time Temp Pulse Resp B/P (MAP) Pulse Ox O2 Delivery O2 Flow Rate FiO2 08/25/17 12:00 98.1 58 14 148/66 (93) 97 08/25/17 08:00 98.2 65 14 142/78 (99) 98 08/25/17 04:00 98.0 58 18 155/67 (96) 98 08/25/17 01:07 126/65 (85) 08/25/17 00:00 98.5 71 18 188/84 (118) 98 08/24/17 20:13 64 08/24/17 20:00 98.1 64 16 154/75 (101) 95 08/24/17 18:00 98.2 68 14 170/54 (92) 99 Physical Exam GENERAL: This is a well-nourished, well-developed patient, in no apparent distress. SKIN: No rashes, ecchymoses or lesions. Cool and dry. HEAD: Atraumatic. Normocephalic. No temporal or scalp tenderness. EYES: Pupils equal round and reactive. Extraocular motions intact. No scleral icterus. No injection or drainage. ENT: Nose without bleeding, purulent drainage or septal hematoma. Throat without erythema, tonsillar hypertrophy or exudate. Uvula midline. Airway patent. NECK: Trachea midline. No JVD or lymphadenopathy. Supple, nontender, no meningeal signs. GASTROINTESTINAL: Abdomen soft, non-tender, nondistended. No hepato-splenomegaly , or palpable masses. No guarding. GENITOURINARY: Abraham catheter in place draining clear yellow urine. Bladder not distended MUSCULOSKELETAL: Extremities without clubbing, cyanosis, or edema. No joint tenderness, effusion, or edema noted. No calf tenderness. Negative Homans sign bilaterally. NEUROLOGICAL: Awake and alert. Cranial nerves II through XII intact. Motor and sensory grossly within normal limits. Five out of 5 muscle strength in all muscle groups. Normal speech. Lab results reviewed: Yes Laboratory Tests Test 08/24/17 19:05 08/24/17 21:02 08/25/17 05:10 25-Hydroxy Vitamin D Total 9.5 Parathyroid Hormone (Intact) 89.5 Urine Eosinophils NONE SEEN Blood Urea Nitrogen 25 Creatinine 1.10 Random Glucose 77 Albumin 2.7 Calcium Level 8.1 Phosphorus Level 3.2 Sodium Level 143 Potassium Level 4.8 Chloride Level 112 Carbon Dioxide Level 23.7 Anion Gap 7 Estimat Glomerular Filtration Rate 48 Date/Time Source Procedure Growth Status 08/24/17 02:10 Urine Catheterized Urine Urine Culture - Preliminary Gram Negative Germain Resulted Result Diagram: 08/24/17 0500 08/25/17 0510 Personally reviewed images: Yes Imaging Last Impressions Abdomen/Pelvis CT 08/24/17 0000 Signed Impressions: Service Date/Time: Thursday, August 24, 2017 20:39 - CONCLUSION: 1. No acute intra-abdominal process. 2. Scattered bibasilar fibrotic changes within the lungs. 3. Degenerative changes of the thoracolumbar spine. Serafin Villeda MD Renal Ultrasound 08/23/17 0000 Signed Impressions: Service Date/Time: Wednesday, August 23, 2017 22:16 - CONCLUSION: 1. Hydronephrosis on the left of uncertain etiology. 2. Chronic parenchymal changes. 3. Small, benign cyst of the right lower pole. Isiah Colorado MD Head CT 08/23/17 0000 Signed Impressions: Service Date/Time: Wednesday, August 23, 2017 19:39 - CONCLUSION: No acute intracranial abnormality. Isiah Colorado MD Assessment and Plan Assessment and Plan Urologic impression: #1 incomplete bladder emptying #2 recent development left hydronephrosis related to bladder emptying resolved with indwelling Abraham Recommendations: #1 DC Abraham catheter and teach patient how to perform catheterization #2 patient to perform clean intermittent catheterization at least twice daily #3 okay to discharge home from perspective when able to perform self catheterization #4 office follow up within the next 3 weeks [phone] Problem Qualifiers (1) ARF (acute renal failure): Qualified Codes: N17.9 - Acute kidney failure, unspecified Dragan Krishnamurthy MD Aug 25, 2017 17:38
[2017-08-25] MEDS: TEMAZEPAM 15 MG CAP PO PRN (21:46)
[2017-08-26] VITALS: BP 162/88; PULSE 61; RESP 18; TEMP 96.1; O2SAT 97
[2017-08-26] MEDS: LEVOTHYROXINE SODIUM 100 MCG TAB PO SCH (06:18)
[2017-08-26 08:00] VITALS: BP 176/88; PULSE 59; RESP 14; TEMP 96.3; O2SAT 95
[2017-08-26] MEDS: INSULIN ASPART SUPPLEMENTAL SCALE SQ SCH ×3 (08:00→16:08)
[2017-08-26] MEDS: PREGABALIN 75 MG CAP PO SCH (08:53)
[2017-08-26] MEDS: CLOPIDOGREL 75 MG TAB PO SCH (08:53)
[2017-08-26] MEDS: PRAVASTATIN SOD 40 MG TAB PO SCH (08:54)
[2017-08-26] MEDS ORDERED: AMLO5 PO (08:54)
[2017-08-26] MEDS: FAMOTIDINE 20 MG TAB PO SCH (08:54)
[2017-08-26] MEDS ORDERED: MACR100C2 PO (08:55)
[2017-08-26] MEDS: BISOPROLOL FUMARATE 5 MG TAB PO SCH (09:00)
[2017-08-26] MEDS: SODIUM CHLORIDE 0.9% FLUSH 10 ML FLUSH IV FLUSH SCH (09:00)
[2017-08-26] MEDS: CALCIUM CARBONATE 500 MG CHEWABLE TAB CHEW SCH (09:00)
[2017-08-26] MEDS ORDERED: amLODIPine BESYLATE 5 MG TAB PO SCH (09:00)
[2017-08-26] MEDS ORDERED: CARVEDILOL 12.5 MG TAB PO SCH (09:00)
[2017-08-26] MEDS: DOCUSATE SODIUM 50 MG/SENNA 8.6 MG TAB PO SCH (09:00)
--- NOTE | 2017-08-26 09:04 | HHI.DS ---
Discharge Summary Admission Date Aug 23, 2017 at 21:34 Discharge Date: Aug 26, 2017 Admitting Diagnosis acute renal failure, hyperkalemia (1) Hyperkalemia ICD Code: E87.5 - Hyperkalemia Status: Acute (2) ARF (acute renal failure) ICD Code: N17.9 - Acute kidney failure, unspecified Status: Acute (3) Headache ICD Code: R51 - Headache (4) Hypotension ICD Code: I95.9 - Hypotension, unspecified (5) UTI (urinary tract infection) ICD Code: N39.0 - Urinary tract infection, site not specified Procedures none Brief History - From Admission 81-year-old female with a past medical history of hypertension, MT, dementia was brought to the ED for evaluation of an acute onset of episode of nausea without vomiting however associated with generalized weakness as well as headache x3 days duration after patient was prescribed Tamiflu. She has no diarrhea episodes. She reported decreased appetite. Abnormal labs include potassium 6.6 and BUN/reactive in 51/2.40. On admission, patient has BP of 96/ 51 over was afebrile with oxygen saturation of 96% on room air. CBC/BMP: 08/24/17 0500 08/25/17 0510 Significant Findings Laboratory Tests Test 08/23/17 19:55 08/24/17 00:40 08/24/17 02:10 08/24/17 05:00 White Blood Count 12.5 TH/MM3 (4.0-11.0) Hematocrit 46.9 % (35.0-46.0) Neutrophils (%) (Auto) 71.4 % (16.0-70.0) Neutrophils # (Auto) 8.9 TH/MM3 (1.8-7.7) Blood Urea Nitrogen 51 MG/DL (7-18) 48 MG/DL (7-18) 44 MG/DL (7-18) Creatinine 2.40 MG/DL (0.50-1.00) 1.90 MG/DL (0.50-1.00) 1.80 MG/DL (0.50-1.00) Random Glucose 134 MG/DL (74-106) 186 MG/DL (74-106) Sodium Level 135 MEQ/L (136-145) Potassium Level 6.6 MEQ/L (3.5-5.1) Estimat Glomerular Filtration Rate 19 ML/MIN (>89) 25 ML/MIN (>89) 27 ML/MIN (>89) Troponin I LESS THAN 0.02 NG/ML Chloride Level 109 MEQ/L (98-107) 109 MEQ/L (98-107) Urine Turbidity MOD (CLEAR) Urine Nitrite POS (NEG) Urine WBC Clumps OCC (NONE) Urine Bacteria MANY /hpf (NONE) Urine Mucus FEW /lpf (OCC) Monocytes (%) (Auto) 8.3 % (0.0-8.0) Total Protein 6.2 GM/DL (6.4-8.2) Albumin 2.7 GM/DL (3.4-5.0) Calcium Level 8.2 MG/DL (8.5-10.1) Aspartate Amino Transf (AST/SGOT) 14 U/L (15-37) Test 08/24/17 19:05 08/24/17 21:02 08/25/17 05:10 08/26/17 08:45 25-Hydroxy Vitamin D Total 9.5 ng/ML (30-100) Parathyroid Hormone (Intact) 89.5 PG/ML (12.4-76.8) Blood Urea Nitrogen 25 MG/DL (7-18) Creatinine 1.10 MG/DL (0.50-1.00) Albumin 2.7 GM/DL (3.4-5.0) Calcium Level 8.1 MG/DL (8.5-10.1) Chloride Level 112 MEQ/L (98-107) Estimat Glomerular Filtration Rate 48 ML/MIN (>89) Imaging Last Impressions Abdomen/Pelvis CT 08/24/17 0000 Signed Impressions: Service Date/Time: Thursday, August 24, 2017 20:39 - CONCLUSION: 1. No acute intra-abdominal process. 2. Scattered bibasilar fibrotic changes within the lungs. 3. Degenerative changes of the thoracolumbar spine. Serafin Villeda MD Renal Ultrasound 08/23/17 0000 Signed Impressions: Service Date/Time: Wednesday, August 23, 2017 22:16 - CONCLUSION: 1. Hydronephrosis on the left of uncertain etiology. 2. Chronic parenchymal changes. 3. Small, benign cyst of the right lower pole. Isiah Colorado MD Head CT 08/23/17 0000 Signed Impressions: Service Date/Time: Wednesday, August 23, 2017 19:39 - CONCLUSION: No acute intracranial abnormality. Isiah Colorado MD PE at Discharge GENERAL: This is a well-nourished, well-developed patient, laying in bed EYES: Extraocular motions intact. ENT: Nose without drainage. Airway patent. NECK: Trachea midline. CARDIOVASCULAR: Regular rate and rhythm without murmurs RESPIRATORY: Clear to auscultation. Breath sounds equal bilaterally. No wheezes GASTROINTESTINAL: Abdomen soft, non-tender, nondistended. No guarding. MUSCULOSKELETAL: Extremities with trace edema. NEUROLOGICAL: Awake and alert. Motor and sensory grossly within normal limits. Normal speech. Pt update on day of discharge Pt feeling well. denies any pain, nausea or vomiting. Per RN pt felt a bit dizzy earlier this morning but pt has no complaints when I saw her. Pt eager to go home. BP prior to getting meds was 190. Discussed w RN, to please give BP meds and recheck in 1 hour. Hospital Course 81-year-old female admitted w hypotension, Acute renal failure and hyperkalemia. She was found to have a UTI and hydronephrosis on the left per renal u/s. Abraham cath was placed and urology was consulted. urine cx grew E. Coli which was pansensitive. Pt was treated w rocephin and will be transitioned to macrobid as an outpatient. Pt's aldactone and potassium supplements were held and she received IV calcium gluconate, IV bicarbonate, IV insulin and D50 and albuterol nebulizers for treatment of her hyperkalemia. PT evaluated the patient and recommended home health PT On day of discharge, pt's BP was elevated to the 190's prior to getting her BP meds. Amlodipine was increased to 5mg po daily and carvedilol was resumed. BP on discharge was 160 and w her age will not want to drop it too fast. She does need to f/u w PCP for adjustment of BP meds. Urology recommended to DC Abraham catheter and teach patient how to perform catheterization. Patient to perform clean intermittent catheterization at least twice daily Urology office follow up within the next 3 weeks [phone] Pt Condition on Discharge: Stable Discharge Disposition: Disch w/ Home Health Serv Discharge Time: > 30 minutes Discharge Instructions DIET: Follow Instructions for: Heart Healthy Diet Activities you can perform: Regular-No Restrictions Follow up Referrals: PCP Follow-up - 1 Week Urology - 3 Weeks with Dragan Krishnamurthy MD New Medications: Gentlecath Urinary Catheter (Gentlecath Urinary Catheter) 8 Fr-16" Mis EA .XX DIRECTED for Urinary Symptom Managemen, #1 0 Refills perform self cath BID Nitrofurantoin Monohydrate Macrocrystals (Macrobid) 100 Mg Cap 100 MG PO BID for Infection, #10 CAP 0 Refills Amlodipine (Norvasc) 5 Mg Tab 5 MG PO DAILY, #30 TAB Continued Medications: Acetaminophen (Tylenol) 325 Mg Tab 325 MG PO Q4H PRN for PAIN SCALE 1 TO 4, #20 TAB 0 Refills Bisoprolol (Bisoprolol) 5 Mg Tab 5 MG PO BID for Blood Pressure Management, #30 TAB 0 Refills Carvedilol (Carvedilol) 6.25 Mg Tab 12.5 MG PO BID, #60 TAB 0 Refills Clonazepam (Clonazepam) 0.5 Mg Tab 0.5 MG PO BID, #60 TAB 0 Refills Clopidogrel (Clopidogrel) 75 Mg Tab 75 MG PO DAILY for Blood Clot Prevention, #30 TAB 0 Refills Glimepiride (Glimepiride) 1 Mg Tab 1 MG PO BID for Blood Sugar Management, #30 TAB 0 Refills Take with breakfast or first main meal Levothyroxine (Levothyroxine) 100 Mcg Tab 100 MCG PO DAILY for Thyroid, #30 TAB 0 Refills Pantoprazole (Pantoprazole) 40 Mg Tab 40 MG PO DAILY for Reflux, #30 TAB 0 Refills Potassium Chloride ER (Klor-Con 10) 10 Meq Tab 10 MEQ PO DAILY for Electrolyte Replacement, #60 TAB 0 Refills Pregabalin (Lyrica) 75 Mg Cap 75 MG PO BID, #60 CAP 0 Refills Ranitidine (Ranitidine 75) 75 Mg Tab 150 MG PO DAILY for Heartburn, TAB 0 Refills Take 30 to 60 minutes before eating food or drinking beverages that cause heartburn. Simvastatin (Simvastatin) 20 Mg Tab 20 MG PO DAILY for Cholesterol Management, #30 TAB 0 Refills Discontinued Medications: Losartan (Losartan) 50 Mg Tab 50 MG PO DAILY for Blood Pressure Management, #60 TAB 0 Refills Spironolactone (Spironolactone) 25 Mg Tab 25 MG PO DAILY, #30 TAB 0 Refills Callie Jeronimo MD Aug 26, 2017 09:04
[2017-08-26 09:06] LABS: BICARBONATE 21.4 MEQ/L (21.0-32.0); CALCIUM 8.4 MG/DL (8.5-10.1)
[2017-08-26 09:10] LABS: CREATININE 0.88 MG/DL (0.50-1.00)
[2017-08-26] MEDS: SODIUM CHLOR 0.9% 1000 ML INJ 1,000 ML IV SCH (09:25)
[2017-08-26 09:43] VITALS: BP 176/77
[2017-08-26] MEDS ORDERED: clonazePAM 0.5 MG TAB PO ONE (10:15)
[2017-08-26 12:00] VITALS: BP 160/77; PULSE 62; RESP 14; TEMP 96.2; O2SAT 100
[2017-08-26] MEDS ORDERED: CATH8MIS (14:03)
[2017-08-26] MEDS: cefTRIAXone INJ 1,000 MG in SODIUM CHLORIDE 0.9% INJ 100 ML IV SCH (16:00)
== END 2017-08-26 16:35 | disposition home health service (06) | DRG 683 ==
LOC: PHED 18:33 → PHEDA 21:34 → PH3A 23:57
PROVIDERS: ADMIT Hospitalist; ATTEND Hospitalist
PROC: 0T9B70Z Drainage of Bladder with Drainage Device, Via Natural or Artificial Opening (ICD-10-PCS; principal; 2017-08-24)
DX: N17.9 Acute kidney failure, unspecified (principal); N39.0 Urinary tract infection, site not specified; E11.42 Type 2 diabetes mellitus with diabetic polyneuropathy; F03.90 Unspecified dementia, unspecified severity, without behavioral disturbance, psychotic disturbance, mood disturbance, and anxiety; E87.5 Hyperkalemia; I48.91 Unspecified atrial fibrillation; E86.9 Volume depletion, unspecified; I10 Essential (primary) hypertension; N13.30 Unspecified hydronephrosis; E78.5 Hyperlipidemia, unspecified; I25.2 Old myocardial infarction; I25.10 Atherosclerotic heart disease of native coronary artery without angina pectoris; K21.9 Gastro-esophageal reflux disease without esophagitis; M79.7 Fibromyalgia; E03.9 Hypothyroidism, unspecified; R33.9 Retention of urine, unspecified; F32.9 Major depressive disorder, single episode, unspecified; F41.9 Anxiety disorder, unspecified; B96.20 Unspecified Escherichia coli [E. coli] as the cause of diseases classified elsewhere; Z66 Do not resuscitate; Z79.84 Long term (current) use of oral hypoglycemic drugs; Z86.14 Personal history of Methicillin resistant Staphylococcus aureus infection; Z86.73 Personal history of transient ischemic attack (TIA), and cerebral infarction without residual deficits; Z95.5 Presence of coronary angioplasty implant and graft; Z96.652 Presence of left artificial knee joint; Z98.1 Arthrodesis status
CPT/HCPCS: 70450; 74176; 76775; 80048; 80053; 80069; 81001; 82306; 82948; 83970; 84484; 85025; 87077; 87086; 87186; 87205; 93005; 94664; 96361; 96374; J0610; J0696; J1815; J2270; J2405; J7030; J7040; J7611

== ENCOUNTER 2017-08-28 13:06 | Emergency (ER) | payer MEDICARE ==
[~2017-08-28 13:06] MED LIST changes: +AMLO5 PO; +CATH8MIS; -LOSA50TA PO; +MACR100C2 PO; -SPIR25TA PO
[2017-08-28 13:25] VITALS: BP 158/86; PULSE 65; RESP 16; TEMP 97.9; O2SAT 96
--- NOTE | 2017-08-28 13:51 | PD ---
HPI Chief Complaint: Abdominal Pain Time Seen by Provider: 13:25 Travel History International Travel<30 days: No Contact w/Intl Traveler<30days: No Traveled to known affect area: No History of Present Illness HPI 81-year-old female was brought in by EMS for abdominal pain. Patient was admitted to [facility] August 23 and discharged August 26 with diagnosis of hypokalemia, acute renal failure, headache, hypertension, UTI. Patient has history of hypertension, AR, dementia, unable to provide accurate information. Patient was found to have urinary retention and Abraham catheter was placed and urology was consulted. Urine culture grew Escherichia coli. Patient was treated with IV Rocephin and converted to Macrobid as outpatient . Patient however has not filled the prescription for Macrobid for the past 2 days. A neighbor called EMS today because of concern for patient's unable to care for herself. Patient has scheduled home health visit. Patient otherwise has no complaint now after arriving to the ED. PFSH Past Medical History Hx Anticoagulant Therapy: Yes Arthritis: Yes Blood Disorders: No Anxiety: Yes Depression: Yes Heart Rhythm Problems: Yes (NEW AFIB 12/29/15) Cancer: No Cardiac Catheterization: Yes Cardiovascular Problems: Yes (htn on meds) High Cholesterol: Yes Chest Pain: No Congestive Heart Failure: No Cerebrovascular Accident: Yes Coronary Artery Disease: Yes Diabetes: Yes (type 2) Patient Takes Glucophage: No Diminished Hearing: No Endocrine: Yes Fibromyalgia: Yes Gastrointestinal Disorders: Yes GERD: Yes Genitourinary: Yes Headaches: Yes Hepatitis: No Hiatal Hernia: No Hypertension: Yes Immune Disorder: No Implanted Vascular Access Dvce: Yes Kidney Stones: No Medical other: Yes (OPEN WOUNDS KAVITA. LEGS, FALL RISK, FIBROMYALGIA) Musculoskeletal: Yes (FIBROMYALGIA) Neurologic: Yes Psychiatric: Yes Reproductive: No Respiratory: No Immunizations Current: No Migraines: No Myocardial Infarction: Yes (DECEMBER 2015) Renal Failure: No Seizures: No Thyroid Disease: Yes (HYPOTHYROID) Ulcer: No Influenza Vaccination: Yes ?: Not Menopausal: Yes : 5 Para: 4 Miscarriage: 1 Past Surgical History Abdominal Surgery: Yes (APPY, CHOLECYSTECTOMY) AICD: No Appendectomy: Yes Arteriovenous Shunt: Yes Body Medical Devices: CORONARY ARTERY STENTS AND CAROTID ARTERY STENTS Cardiac Surgery: No Cholecystectomy: Yes Coronary Stent: Yes (1993) Ear Surgery: No Endocrine Surgery: No Eye Surgery: No Genitourinary Surgery: Yes (BLADDER SUSPENSION, INTERSTIM. INS.(MEDTRONIC)) Gynecologic Surgery: Yes (BLADDER SURGERIES, PT HAS PESSARY) Hysterectomy: Yes Insulin Pump: No Joint Replacement: Yes (LEFT KNEE, PARTIAL) Oral Surgery: Yes (T & A) Pacemaker: No Thoracic Surgery: No Tonsillectomy: Yes Other Surgery: Yes (CERVICAL FUSION, CERV. SX X4) Social History Alcohol Use: No Tobacco Use: No Substance Use: No Allergies-Medications (Allergen,Severity, Reaction): Coded Allergies: *MDRO Multi-Drug Resistant Organism (Verified Adverse Reaction, Unknown, ) MRSA PCR negative - 12/29/15 & 01/01/16 VRE PCR negative - 01/01/16 & 01/03/16 Cleared per Infection Control 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/08/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) - 06/28/13 Reported Meds & Prescriptions Reported Meds & Active Scripts Active Gentlecath Urinary Catheter (N/A) 8 Fr-16" Mis Ea .XX DIRECTED perform self cath BID Macrobid (Nitrofurantoin Monoh/Nitrofur Macro) 100 Mg Cap 100 Mg PO BID Norvasc (Amlodipine Besylate) 5 Mg Tab 5 Mg PO DAILY Tylenol (Acetaminophen) 325 Mg Tab 325 Mg PO Q4H PRN Reported Clonazepam 0.5 Mg Tab 0.5 Mg PO BID Lyrica (Pregabalin) 75 Mg Cap 75 Mg PO BID Pantoprazole (Pantoprazole Sodium) 40 Mg Tab 40 Mg PO DAILY Klor-Con 10 (Potassium Chloride) 10 Meq Tab 10 Meq PO DAILY Levothyroxine (Levothyroxine Sodium) 100 Mcg Tab 100 Mcg PO DAILY Glimepiride 1 Mg Tab 1 Mg PO BID Take with breakfast or first main meal Ranitidine 75 (Ranitidine HCl) 75 Mg Tab 150 Mg PO DAILY Take 30 to 60 minutes before eating food or drinking beverages that cause heartburn. Simvastatin 20 Mg Tab 20 Mg PO DAILY Clopidogrel (Clopidogrel Bisulfate) 75 Mg Tab 75 Mg PO DAILY Carvedilol 6.25 Mg Tab 12.5 Mg PO BID Bisoprolol (Bisoprolol Fumarate) 5 Mg Tab 5 Mg PO BID Review of Systems General / Constitutional: No: Fever Eyes: No: Visual changes HENT: No: Headaches Cardiovascular: No: Chest Pain or Discomfort Respiratory: No: Shortness of Breath Gastrointestinal: No: Abdominal Pain Genitourinary: No: Dysuria Musculoskeletal: No: Pain Skin: No Rash Neurologic: No: Weakness Psychiatric: No: Depression Endocrine: No: Polydipsia Hematologic/Lymphatic: No: Easy Bruising Physical Exam Narrative GENERAL: Well-nourished, well-developed patient. SKIN: Focused skin assessment warm/dry. HEAD: Normocephalic. EYES: No scleral icterus. No injection or drainage. NECK: Supple, trachea midline. No JVD or lymphadenopathy. CARDIOVASCULAR: Regular rate and rhythm without murmurs, gallops, or rubs. RESPIRATORY: Breath sounds equal bilaterally. No accessory muscle use. GASTROINTESTINAL: Abdomen soft, non-tender, nondistended. MUSCULOSKELETAL: No cyanosis, or edema. BACK: Nontender without obvious deformity. No CVA tenderness. Neurologic exam: Patient's awake and alert. Patient oriented to person. Patient moves all extremities well. No obvious focal neurological deficit. Data Data Last Documented VS Vital Signs Date Time Temp Pulse Resp B/P (MAP) Pulse Ox O2 Delivery O2 Flow Rate FiO2 08/28/17 13:25 97.9 65 16 158/86 (110) 96 Orders Orders Basic Metabolic Panel (Bmp) (08/28/17 13:43) Urinalysis - C+S If Indicated (08/28/17 13:43) Iv Access Insert/Monitor (08/28/17 13:43) Ceftriaxone Inj (Rocephin Inj) (08/28/17 14:00) Urinary Catheter Insert/Apply (08/28/17 14:20) Ed Discharge Order (08/28/17 15:45) Labs Laboratory Tests Test 08/28/17 14:25 08/28/17 14:32 Blood Urea Nitrogen 15 MG/DL Creatinine 0.93 MG/DL Random Glucose 145 MG/DL Calcium Level 8.7 MG/DL Sodium Level 139 MEQ/L Potassium Level 4.7 MEQ/L Chloride Level 107 MEQ/L Carbon Dioxide Level 26.1 MEQ/L Anion Gap 6 MEQ/L Estimat Glomerular Filtration Rate 58 ML/MIN Urine Collection Type CATH Urine Color YELLOW Urine Turbidity CLEAR Urine pH 6.0 Urine Specific [place] 1.014 Urine Protein NEG mg/dL Urine Glucose (UA) NEG mg/dL Urine Ketones NEG mg/dL Urine Occult Blood NEG Urine Nitrite NEG Urine Bilirubin NEG Urine Leukocyte Esterase NEG Urine Squamous Epithelial Cells 0-5 /hpf Microscopic Urinalysis Comment CATH-CULT NOT IND MDM Medical Decision Making Medical Screen Exam Complete: Yes Emergency Medical Condition: Yes Medical Record Reviewed: Yes Interpretation(s) 1539 PM. Potassium today is 4.7. GFR 58. UA is negative. Differential Diagnosis Differential diagnosis including UTI, electrolyte imbalance. Narrative Course 83-year-old female with dementia, was brought in by EMS for evaluation. Patient was recently diagnosed with hypokalemia, acute kidney injury and UTI. We'll check the electrolytes and UA today. Abraham catheter inserted. Patient produced 400 cc of clear urine. UA is negative for infection. Diagnosis Primary Impression: Urinary retention Patient Instructions: General Instructions Additional Instructions: May stop Macrodantin. Continue with other medications. Follow-up with personal physician. Home health nurse for help Abraham catheter Med/Other Pt SpecificInfo: Med Stopped Disposition: 01 DISCHARGE HOME Condition: Stable Yahir Guevara MD Aug 28, 2017 13:51
[2017-08-28] MEDS ORDERED: cefTRIAXone INJ 1,000 MG in SODIUM CHLORIDE 0.9% INJ 100 ML IV ONE (14:00)
[2017-08-28 14:41] LABS: BILIRUBIN, URINE NEG (NEG); BLOOD, URINE NEG (NEG); GLUCOSE,URINE NEG (NEG); KETONE, URINE NEG (NEG); NITRITE,URINE NEG (NEG); URINE LEUKOCYTE ESTERASE NEG (NEG)
[2017-08-28 14:48] LABS: SQUAMOUS EPITHELIAL CELL URINE 0-5 /hpf (0-5); URINE COLOR YELLOW (YELLW/STRAW)
[2017-08-28 14:49] LABS: CALCIUM 8.7 MG/DL (8.5-10.1)
[2017-08-28 14:50] LABS: BICARBONATE 26.1 MEQ/L (21.0-32.0)
[2017-08-28 14:53] LABS: CREATININE 0.93 MG/DL (0.50-1.00)
== END 2017-08-28 16:37 | disposition home or self-care (01) ==
LOC: PHED 13:06
DX: R33.9 Retention of urine, unspecified (principal); E03.9 Hypothyroidism, unspecified; E11.9 Type 2 diabetes mellitus without complications; E78.00 Pure hypercholesterolemia, unspecified; I10 Essential (primary) hypertension; I25.10 Atherosclerotic heart disease of native coronary artery without angina pectoris; I25.2 Old myocardial infarction; K21.9 Gastro-esophageal reflux disease without esophagitis; M79.7 Fibromyalgia; Z79.02 Long term (current) use of antithrombotics/antiplatelets; Z79.84 Long term (current) use of oral hypoglycemic drugs
CPT/HCPCS: 51702; 80048; 81001

== ENCOUNTER 2017-09-30 11:54 | Emergency (ER) | payer MEDICARE ==
[~2017-09-30] VITALS: Ht 160 cm; Wt 78.0 kg
[2017-09-30 11:57] VITALS: BP 213/100; PULSE 77; RESP 26; TEMP 98.1; O2SAT 100
[2017-09-30] MEDS ORDERED: SODIUM CHLORIDE 0.9% FLUSH 10 ML FLUSH IVF PRN (12:00)
[2017-09-30 12:02] VITALS: O2SAT 100
--- NOTE | 2017-09-30 12:02 | PD ---
HPI Chief Complaint: SOB Time Seen by Provider: 11:59 Travel History International Travel<30 days: No Contact w/Intl Traveler<30days: No History of Present Illness HPI 79-year-old female with PMH of fibromyalgia, anxiety, HTN, DM, CAD, on Plavix, presents to the ED for evaluation of ~one hour history of shortness of breath, palpations of the heart. Patient endorses cramping nausea. Patient denies headache, dizziness, vision changes, difficulties with speech, weakness, chest pain, vomiting, abdominal pain, dysuria, changes in bowel habits, lower extremity edema. She states that she "wasn't feeling well" and saw her neighbor through the window and signaled for her to call EMS but she has a difficulty explaining her symptoms. She is followed by [facility]. PFSH Past Medical History Hx Anticoagulant Therapy: Yes Arthritis: Yes Blood Disorders: No Anxiety: Yes Depression: Yes Heart Rhythm Problems: Yes (NEW AFIB 12/29/15) Cancer: No Cardiac Catheterization: Yes Cardiovascular Problems: Yes (htn on meds) High Cholesterol: Yes Chest Pain: No Congestive Heart Failure: No Cerebrovascular Accident: Yes Coronary Artery Disease: Yes Diabetes: Yes (type 2) Diminished Hearing: No Endocrine: Yes Fibromyalgia: Yes Gastrointestinal Disorders: Yes GERD: Yes Genitourinary: Yes Headaches: Yes Hepatitis: No Hiatal Hernia: No Hypertension: Yes Immune Disorder: No Implanted Vascular Access Dvce: Yes Kidney Stones: No Musculoskeletal: Yes (FIBROMYALGIA) Neurologic: Yes Psychiatric: Yes Reproductive: No Respiratory: No Immunizations Current: No Migraines: No Myocardial Infarction: Yes (DECEMBER 2015) Renal Failure: No Seizures: No Thyroid Disease: Yes (HYPOTHYROID) Ulcer: No Menopausal: Yes : 5 Para: 4 Miscarriage: 1 Past Surgical History Abdominal Surgery: Yes (APPY, CHOLECYSTECTOMY) AICD: No Appendectomy: Yes Arteriovenous Shunt: Yes Body Medical Devices: CORONARY ARTERY STENTS AND CAROTID ARTERY STENTS Cardiac Surgery: No Cholecystectomy: Yes Coronary Stent: Yes (1993) Ear Surgery: No Endocrine Surgery: No Eye Surgery: No Genitourinary Surgery: Yes (BLADDER SUSPENSION, INTERSTIM. INS.(MEDTRONIC)) Gynecologic Surgery: Yes (BLADDER SURGERIES, PT HAS PESSARY) Hysterectomy: Yes Insulin Pump: No Joint Replacement: Yes (LEFT KNEE, PARTIAL) Oral Surgery: Yes (T & A) Pacemaker: No Thoracic Surgery: No Tonsillectomy: Yes Other Surgery: Yes (CERVICAL FUSION, CERV. SX X4) Social History Alcohol Use: No Tobacco Use: No Substance Use: No Allergies-Medications (Allergen,Severity, Reaction): Coded Allergies: No Known Drug Allergies (Verified Allergy, Unknown, 09/30/17) *MDRO Multi-Drug Resistant Organism (Verified Adverse Reaction, Unknown, ) MRSA PCR negative - 12/29/15 & 01/01/16 VRE PCR negative - 01/01/16 & 01/03/16 Cleared per Infection Control 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/08/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) - 06/28/13 Reported Meds & Prescriptions Reported Meds & Active Scripts Active Keflex (Cephalexin) 500 Mg Cap 500 Mg PO Q12H 5 Days Gentlecath Urinary Catheter (N/A) 8 Fr-16" Mis Ea .XX DIRECTED perform self cath BID Macrobid (Nitrofurantoin Monoh/Nitrofur Macro) 100 Mg Cap 100 Mg PO BID Norvasc (Amlodipine Besylate) 5 Mg Tab 5 Mg PO DAILY Tylenol (Acetaminophen) 325 Mg Tab 325 Mg PO Q4H PRN Reported Clonazepam 0.5 Mg Tab 0.5 Mg PO BID Lyrica (Pregabalin) 75 Mg Cap 75 Mg PO BID Pantoprazole (Pantoprazole Sodium) 40 Mg Tab 40 Mg PO DAILY Klor-Con 10 (Potassium Chloride) 10 Meq Tab 10 Meq PO DAILY Levothyroxine (Levothyroxine Sodium) 100 Mcg Tab 100 Mcg PO DAILY Glimepiride 1 Mg Tab 1 Mg PO BID Take with breakfast or first main meal Ranitidine 75 (Ranitidine HCl) 75 Mg Tab 150 Mg PO DAILY Take 30 to 60 minutes before eating food or drinking beverages that cause heartburn. Simvastatin 20 Mg Tab 20 Mg PO DAILY Clopidogrel (Clopidogrel Bisulfate) 75 Mg Tab 75 Mg PO DAILY Carvedilol 6.25 Mg Tab 12.5 Mg PO BID Bisoprolol (Bisoprolol Fumarate) 5 Mg Tab 5 Mg PO BID Review of Systems Except as stated in HPI: all other systems reviewed are Neg Physical Exam Narrative GENERAL: Well-nourished, well-developed pleasant white female in no acute distress. A&O x 4. SKIN: Focused skin assessment warm/dry. Chronic skin changes in bilateral lower extremities. HEAD: Normocephalic. Atraumatic. EYES: No scleral icterus. No injection or drainage. PERRLA. EOMI. NECK: Supple, trachea midline. No JVD or lymphadenopathy. CARDIOVASCULAR: Regular rate and rhythm without murmurs, gallops, or rubs. RESPIRATORY: Breath sounds clear and equal bilaterally. No accessory muscle use. GASTROINTESTINAL: Abdomen soft, non-tender, nondistended. Active bowel sounds. MUSCULOSKELETAL: No cyanosis. Trace edema to the mid shins bilaterally. NEUROLOGICAL: Awake and alert. Cranial nerves II through XII intact. Motor and sensory grossly within normal limits. Five out of 5 muscle strength in all muscle groups. Normal speech. BACK: Nontender without obvious deformity. No CVA tenderness. Data Data Last Documented VS Vital Signs Date Time Temp Pulse Resp B/P (MAP) Pulse Ox O2 Delivery O2 Flow Rate FiO2 09/30/17 14:13 64 22 184/81 (115) 95 Room Air 09/30/17 11:57 98.1 Orders Orders Complete Blood Count With Diff (09/30/17 11:59) Comprehensive Metabolic Panel (09/30/17 11:59) B-Type Natriuretic Peptide (09/30/17 11:59) Act Partial Throm Time (Ptt) (09/30/17 11:59) Prothrombin Time / Inr (Pt) (09/30/17 11:59) Ckmb (Isoenzyme) Profile (09/30/17 11:59) Troponin I (09/30/17 11:59) Urinalysis - C+S If Indicated (09/30/17 11:59) Iv Access Insert/Monitor (09/30/17 11:59) Electrocardiogram (09/30/17 11:59) Ecg Monitoring (09/30/17 11:59) Oximetry (09/30/17 11:59) Chest, Single Ap (09/30/17 11:59) Sodium Chloride 0.9% Flush (Ns Flush) (09/30/17 12:00) Thyroid Stimulating Hormone (09/30/17 12:02) Ondansetron Inj (Zofran Inj) (09/30/17 12:15) Ct Brain W/O Iv Contrast(Rout) (09/30/17 ) Ct Pulmonary Angiogram (09/30/17 12:47) Cath For Specimen (09/30/17 12:48) Iohexol 350 Inj (Omnipaque 350 Inj) (09/30/17 13:41) Urine Culture (09/30/17 14:00) Ceftriaxone Inj (Rocephin Inj) (09/30/17 14:45) Labs Laboratory Tests Test 09/30/17 12:00 09/30/17 14:00 White Blood Count 10.7 TH/MM3 Red Blood Count 4.91 MIL/MM3 Hemoglobin 13.9 GM/DL Hematocrit 42.1 % Mean Corpuscular Volume 85.8 FL Mean Corpuscular Hemoglobin 28.4 PG Mean Corpuscular Hemoglobin Concent 33.1 % Red Cell Distribution Width 13.8 % Platelet Count 283 TH/MM3 Mean Platelet Volume 8.7 FL Neutrophils (%) (Auto) 64.6 % Lymphocytes (%) (Auto) 24.9 % Monocytes (%) (Auto) 8.9 % Eosinophils (%) (Auto) 0.9 % Basophils (%) (Auto) 0.7 % Neutrophils # (Auto) 6.9 TH/MM3 Lymphocytes # (Auto) 2.7 TH/MM3 Monocytes # (Auto) 1.0 TH/MM3 Eosinophils # (Auto) 0.1 TH/MM3 Basophils # (Auto) 0.1 TH/MM3 CBC Comment DIFF FINAL Differential Comment Prothrombin Time 10.8 SEC Prothromb Time International Ratio 1.1 RATIO Activated Partial Thromboplast Time 24.4 SEC Blood Urea Nitrogen 15 MG/DL Creatinine 0.91 MG/DL Random Glucose 164 MG/DL Total Protein 7.3 GM/DL Albumin 3.3 GM/DL Calcium Level 9.1 MG/DL Alkaline Phosphatase 90 U/L Aspartate Amino Transf (AST/SGOT) 17 U/L Alanine Aminotransferase (ALT/SGPT) 14 U/L Total Bilirubin 0.5 MG/DL Sodium Level 141 MEQ/L Potassium Level 3.8 MEQ/L Chloride Level 107 MEQ/L Carbon Dioxide Level 24.9 MEQ/L Anion Gap 9 MEQ/L Estimat Glomerular Filtration Rate 59 ML/MIN Total Creatine Kinase 87 U/L Troponin I LESS THAN 0.02 NG/ML B-Type Natriuretic Peptide 295 PG/ML Thyroid Stimulating Hormone 3rd Gen 0.970 uIU/ML Urine Color YELLOW Urine Turbidity HAZY Urine pH 6.0 Urine Specific [place] 1.027 Urine Protein 30 mg/dL Urine Glucose (UA) NEG mg/dL Urine Ketones NEG mg/dL Urine Occult Blood NEG Urine Nitrite POS Urine Bilirubin NEG Urine Urobilinogen LESS THAN 2.0 MG/DL Urine Leukocyte Esterase SMALL Urine RBC 1 /hpf Urine WBC 17 /hpf Urine Squamous Epithelial Cells <1 /hpf Urine Bacteria MANY /hpf Urine Mucus MANY /lpf Microscopic Urinalysis Comment CULTURE INDICATED MDM Medical Decision Making Medical Screen Exam Complete: Yes Emergency Medical Condition: Yes Differential Diagnosis UTI versus PNA versus metabolic derangement versus NM versus ICH versus PE versus other Narrative Course 79-year-old female with PMH of fibromyalgia, anxiety, HTN, DM, CAD, on Plavix, presents to the ED for evaluation of ~one hour history of SOB, palpations of the heart. Patient endorses accompanying nausea. She states that she "wasn't feeling well" saw her neighbor through the window and signaled for her to call EMS but she has difficulty explaining her symptoms. Patient denies headache, dizziness, vision changes, difficulties with speech, weakness, chest pain, vomiting, abdominal pain, dysuria, changes in bowel habits, lower extremity edema. She is followed by [facility]. The nurse spoke with the patient's daughter who works in the operating room. According to the daughter the patient had a recent history of a K IV with metabolic derangements. The patient is primarily cared for by her other daughter at home. Pulse 77, respiratory rate 26, 100% oxygen sat on room air, BP 213/100 on presentation. On exam this is a pleasant, intermittently confused white female in no acute distress. She is alert and answers questions and follows commands appropriately. No focal neuro deficits. Chest is CTA B. Abdomen soft and nontender. No lower extremity edema. Patient was administered aspirin en route by EMS. IV was established. Patient was administered 4 mg Zofran. EKG: Rate 70, sinus rhythm with occasional PVCs. NJ interval 138, QRS 97, QTC 447. Normal axis. No acute ST changes. Reviewed by Dr. Richey. CXR: No acute disease per radiology read. Cardiac enzymes negative 1. BNP: 295. TSH is 0.970 No concerning abnormalities of the CBC or CMP. UA: Hazy, nitrite positive, small leukocyte esterase, 17 WBCs, many bacteria. Culture pending. CT brain: Nonspecific white matter changes. Low density left parietal lobe likely old infarction. CTA chest: No PE. Advanced atherosclerotic plaqe in the coronary arteries with mild cardiomegaly. Degenerative changes in the thoracic spine. Small area of atelectasis in the right middle lobe. Blood pressure improved on recheck. I reviewed the patient's record. Last urine culture grew pansensitive Escherichia coli. Patient's administered a gram of Rocephin IV and prescribed a course of Keflex. She is instructed to follow-up with her primary care provider. She is stable and discharged home. Diagnosis Primary Impression: UTI (urinary tract infection) Qualified Codes: N39.0 - Urinary tract infection, site not specified Referrals: Primary Care Physician Patient Instructions: General Instructions, Urinary Traction Infection in Older Adults (ED) Additional Instructions: Rest, hydrate. Begin antibiotics today and take them until every pill is gone. Follow with the primary care provider. Return to the ED for worsening symptoms or any urgent or emergent medical condition. Med/Other Pt SpecificInfo: Prescription(s) given Scripts Cephalexin (Keflex) 500 Mg Cap 500 MG PO Q12H for Infection for 5 Days, #10 CAP 0 Refills Prov: Serafin Richey MD 09/30/17 Disposition: 01 DISCHARGE HOME Condition: Stable Tash Trinidad Sep 30, 2017 12:01
[2017-09-30] MEDS ORDERED: ONDANSETRON HCL 4 MG/2 ML VIAL IV PUSH ONE (12:15)
--- NOTE | 2017-09-30 12:17 | RADRPT ---
EXAM DATE/TIME: 09/30/2017 12:11 [facility] COMPARISON: CHEST SINGLE AP, April 24, 2016, 19:40. INDICATIONS : Shortness of breath. MEDICAL HISTORY : Diabetes mellitus type 2. Hypertension SURGICAL HISTORY : Appendectomy. Cholecystectomy.Coronary artery stent.Pain stimulator. AV shunt. Cervical fusion. ENCOUNTER: Initial ACUITY: 1 day PAIN SCORE: 0/10 LOCATION: Bilateral chest FINDINGS: A single view of the chest demonstrates the lungs to be symmetrically aerated without evidence of mas s, infiltrate or effusion. The cardiomediastinal contours are unremarkable. Osseous structures are intact. CONCLUSION: No acute disease. Rigoberto Gar MD on September 30, 2017 at 12:14 Board Certified Radiologist. This report was verified electronically.
[2017-09-30 12:25] LABS: AUTOMATED NEUTROPHIL # 6.9 TH/MM3 (1.8-7.7); BASOPHIL # 0.1 TH/MM3 (0-0.2); BASOPHIL % 0.7 % (0.0-2.0); EOSINOPHIL # 0.1 TH/MM3 (0-0.4); EOSINOPHIL % 0.9 % (0.0-4.0); HEMATOCRIT 42.1 % (35.0-46.0); HEMOGLOBIN 13.9 GM/DL (11.6-15.3); LYMPH % 24.9 % (9.0-44.0); LYMPHOCYTE # 2.7 TH/MM3 (1.0-4.8); MEAN CELL VOLUME 85.8 FL (80.0-100.0); MEAN CORPUSCULAR HEMOGLOBIN 28.4 PG (27.0-34.0); MEAN CORPUSCULAR HGB CONC 33.1 % (32.0-36.0); MEAN PLATELET VOLUME 8.7 FL (7.0-11.0); MONO % 8.9 % (0.0-8.0); NEUT % 64.6 % (16.0-70.0); PLATELET COUNT 283 TH/MM3 (150-450); RED BLOOD COUNT 4.91 MIL/MM3 (4.00-5.30); RED CELL DISTRIBUTION WIDTH 13.8 % (11.6-17.2); WHITE BLOOD COUNT 10.7 TH/MM3 (4.0-11.0)
[2017-09-30 12:41] LABS: ALBUMIN 3.3 GM/DL (3.4-5.0); ALT (GPT) 14 U/L (10-53); AST (GOT) 17 U/L (15-37); BICARBONATE 24.9 MEQ/L (21.0-32.0); BLOOD UREA NITROGEN 15 MG/DL (7-18); CALCIUM 9.1 MG/DL (8.5-10.1); CHLORIDE 107 MEQ/L (98-107); CREATININE 0.91 MG/DL (0.50-1.00); GLOMERULAR FILTRATION RATE 59 ML/MIN (>89); GLUCOSE,RANDOM 164 MG/DL (74-106); SODIUM (NA) 141 MEQ/L (136-145)
[2017-09-30 12:42] LABS: INTERNATIONAL NORMALIZED RATIO 1.1 RATIO; PROTHROMBIN TIME - PATIENT 10.8 SEC (9.8-11.6)
[2017-09-30 12:45] LABS: ALKALINE PHOSPHATASE 90 U/L (45-117); TOTAL BILIRUBIN ADULT 0.5 MG/DL (0.2-1.0); TOTAL PROTEIN 7.3 GM/DL (6.4-8.2); TROPONIN I LESS THAN 0.02 NG/ML (0.02-0.05)
--- NOTE | 2017-09-30 12:45 | RADRPT ---
EXAM DATE/TIME: 09/30/2017 12:28 [facility] COMPARISON: CT BRAIN W/O CONTRAST, December 28, 2015, 21:47. CT BRAIN W/O CONTRAST, July 02, 2017, 16:43. CT BR AIN W/O CONTRAST, August 23, 2017, 19:39. INDICATIONS : Dizzines RADIATION DOSE: 56.35 CTDIvol (mGy) MEDICAL HISTORY : Cerebrovascular disease. Cardiovascular disease Hypertension.Diabetes SURGICAL HISTORY : Hysterectomy. ENCOUNTER: Initial ACUITY: 2 days PAIN SCALE: 0/10 LOCATION: cranial TECHNIQUE: Multiple contiguous axial images were obtained of the head. Using automated exposure control and adj ustment of the mA and/or kV according to patient size, radiation dose was kept as low as reasonably a chievable to obtain optimal diagnostic quality images. DICOM format image data is available electro nically for review and comparison. FINDINGS: CEREBRUM: Air is low density throughout the white matter. Area of low-density in the left parietal lobe again s een. The ventricles are normal for age. No evidence of midline shift, mass lesion, hemorrhage or acu te infarction. No extra-axial fluid collections are seen. POSTERIOR FOSSA: The cerebellum and brainstem are intact. The 4th ventricle is midline. The cerebellopontine angle i s unremarkable. EXTRACRANIAL: The visualized portion of the orbits is intact. SKULL: The calvaria is intact. No evidence of skull fracture. CONCLUSION: 1. Nonspecific white matter changes. 2. Low-density left parietal lobes likely old infarction. Contrasted MRI may be warranted. Rigoberto Gar MD on September 30, 2017 at 12:40 Board Certified Radiologist. This report was verified electronically.
[2017-09-30] MEDS ORDERED: IOHEXOL 350 MG/ML 10 ML VIAL (for RAD DIAG) IVCONTRAST ONE (13:41)
--- NOTE | 2017-09-30 13:55 | RADRPT ---
EXAM DATE/TIME: 09/30/2017 13:40 [facility] COMPARISON: CT BRAIN W/O CONTRAST, September 30, 2017, 12:28. INDICATIONS : Short of breath, embolism. IV CONTRAST: 72 cc Omnipaque 350 (iohexol) IV RADIATION DOSE: 21.98 CTDIvol (mGy) MEDICAL HISTORY : Cardiovascular disease. Hypertension. Diverticulitis. SURGICAL HISTORY : Hysterectomy. ENCOUNTER: Initial ACUITY: 1 day PAIN SCALE: 7/10 LOCATION: Bilateral chest TECHNIQUE: Volumetric scanning of the chest was performed using a pulmonary embolism protocol MIP images were re constructed. Using automated exposure control and adjustment of the mA and/or kV according to patien t size, radiation dose was kept as low as reasonably achievable to obtain optimal diagnostic quality images. DICOM format image data is available electronically for review and comparison. Follow-up recommendations for detected pulmonary nodules are based at a minimum on nodule size and pa tient risk factors according to Fleischner Society Guidelines. FINDINGS: Today's examination is of adequate diagnostic quality. No large or central pulmonary embolus is seen. The third order branches are not well visualized. There is no significant hilar or mediastinal adenopathy. No axillary adenopathy is identified. The he art is mildly enlarged. There is advanced atherosclerotic plaquing in the coronary arteries. No peric ardial effusion is seen. Graft the pulmonary parenchyma demonstrates a small area of atelectasis in t he right middle lobe but is otherwise clear. There is no pleural effusion. The visualized osseous structures are intact. CONCLUSION: 1. No pulmonary embolus identified. 2. Advanced atherosclerotic plaquing in the coronary arteries with mild cardiomegaly. 3. Degenerative changes in the thoracic spine. 4. Small area of atelectasis in the right middle lobe. Dileep Cast MD on September 30, 2017 at 13:49 Board Certified Radiologist. This report was verified electronically.
[2017-09-30 14:13] VITALS: BP 184/81; PULSE 64; RESP 22; O2SAT 95
[2017-09-30 14:16] LABS: BACTERIA, URINE MANY /hpf; BILIRUBIN, URINE NEG (NEG); BLOOD, URINE NEG (NEG); GLUCOSE,URINE NEG (NEG); KETONE, URINE NEG (NEG); MUCUS URINE MANY /lpf (OCC); NITRITE,URINE POS (NEG); SQUAMOUS EPITHELIAL CELL URINE <1 /hpf (0-5); URINE COLOR YELLOW (YELLW/STRAW); URINE LEUKOCYTE ESTERASE SMALL (NEG)
[2017-09-30] MEDS ORDERED: CEPH-460 PO (14:36)
[2017-09-30] MEDS ORDERED: cefTRIAXone INJ 1,000 MG in SODIUM CHLORIDE 0.9% INJ 100 ML IV ONE (14:45)
--- NOTE | 2017-09-30 15:14 | PD ---
Data Data Last Documented VS Vital Signs Date Time Temp Pulse Resp B/P (MAP) Pulse Ox O2 Delivery O2 Flow Rate FiO2 09/30/17 14:13 64 22 184/81 (115) 95 Room Air 09/30/17 11:57 98.1 Orders Orders Complete Blood Count With Diff (09/30/17 11:59) Comprehensive Metabolic Panel (09/30/17 11:59) B-Type Natriuretic Peptide (09/30/17 11:59) Act Partial Throm Time (Ptt) (09/30/17 11:59) Prothrombin Time / Inr (Pt) (09/30/17 11:59) Ckmb (Isoenzyme) Profile (09/30/17 11:59) Troponin I (09/30/17 11:59) Urinalysis - C+S If Indicated (09/30/17 11:59) Iv Access Insert/Monitor (09/30/17 11:59) Electrocardiogram (09/30/17 11:59) Ecg Monitoring (09/30/17 11:59) Oximetry (09/30/17 11:59) Chest, Single Ap (09/30/17 11:59) Sodium Chloride 0.9% Flush (Ns Flush) (09/30/17 12:00) Thyroid Stimulating Hormone (09/30/17 12:02) Ondansetron Inj (Zofran Inj) (09/30/17 12:15) Ct Brain W/O Iv Contrast(Rout) (09/30/17 ) Ct Pulmonary Angiogram (09/30/17 12:47) Cath For Specimen (09/30/17 12:48) Iohexol 350 Inj (Omnipaque 350 Inj) (09/30/17 13:41) Urine Culture (09/30/17 14:00) Ceftriaxone Inj (Rocephin Inj) (09/30/17 14:45) Ed Discharge Order (09/30/17 14:41) Labs Laboratory Tests Test 09/30/17 12:00 09/30/17 14:00 White Blood Count 10.7 TH/MM3 Red Blood Count 4.91 MIL/MM3 Hemoglobin 13.9 GM/DL Hematocrit 42.1 % Mean Corpuscular Volume 85.8 FL Mean Corpuscular Hemoglobin 28.4 PG Mean Corpuscular Hemoglobin Concent 33.1 % Red Cell Distribution Width 13.8 % Platelet Count 283 TH/MM3 Mean Platelet Volume 8.7 FL Neutrophils (%) (Auto) 64.6 % Lymphocytes (%) (Auto) 24.9 % Monocytes (%) (Auto) 8.9 % Eosinophils (%) (Auto) 0.9 % Basophils (%) (Auto) 0.7 % Neutrophils # (Auto) 6.9 TH/MM3 Lymphocytes # (Auto) 2.7 TH/MM3 Monocytes # (Auto) 1.0 TH/MM3 Eosinophils # (Auto) 0.1 TH/MM3 Basophils # (Auto) 0.1 TH/MM3 CBC Comment DIFF FINAL Differential Comment Prothrombin Time 10.8 SEC Prothromb Time International Ratio 1.1 RATIO Activated Partial Thromboplast Time 24.4 SEC Blood Urea Nitrogen 15 MG/DL Creatinine 0.91 MG/DL Random Glucose 164 MG/DL Total Protein 7.3 GM/DL Albumin 3.3 GM/DL Calcium Level 9.1 MG/DL Alkaline Phosphatase 90 U/L Aspartate Amino Transf (AST/SGOT) 17 U/L Alanine Aminotransferase (ALT/SGPT) 14 U/L Total Bilirubin 0.5 MG/DL Sodium Level 141 MEQ/L Potassium Level 3.8 MEQ/L Chloride Level 107 MEQ/L Carbon Dioxide Level 24.9 MEQ/L Anion Gap 9 MEQ/L Estimat Glomerular Filtration Rate 59 ML/MIN Total Creatine Kinase 87 U/L Troponin I LESS THAN 0.02 NG/ML B-Type Natriuretic Peptide 295 PG/ML Thyroid Stimulating Hormone 3rd Gen 0.970 uIU/ML Urine Color YELLOW Urine Turbidity HAZY Urine pH 6.0 Urine Specific [place] 1.027 Urine Protein 30 mg/dL Urine Glucose (UA) NEG mg/dL Urine Ketones NEG mg/dL Urine Occult Blood NEG Urine Nitrite POS Urine Bilirubin NEG Urine Urobilinogen LESS THAN 2.0 MG/DL Urine Leukocyte Esterase SMALL Urine RBC 1 /hpf Urine WBC 17 /hpf Urine Squamous Epithelial Cells <1 /hpf Urine Bacteria MANY /hpf Urine Mucus MANY /lpf Microscopic Urinalysis Comment CULTURE INDICATED MDM Supervised Visit with ERIKA: No Narrative Course I, Dr. Richey, have reviewed the advance practice practitioner's documentation and am in agreement, met with the patient face to face, made the diagnosis, and the medical decision making was done by me. *My assessment and Findings: Patient seen and examined by me in addition to injury, is an elderly female who appears well, apparently was standing at the end of her driveway screaming of breath so a neighbor call 911. Patient has no complaints to me, she recently was hospitalized for acute kidney failure, she is fairly demented but my concern remains for occult pulmonary embolism and I have instructed Weston Trinidad to order CT pulmonary embolism. Believe the pretest probability is high enough that the patient should be excluded. She otherwise appears well-hydrated, denies any chest pain shortness breath abdominal pain nausea vomiting. Pending negative CT PE protocol patient likely discharged home with patient's daughter states she is at her baseline mental status would like to take her home Diagnosis Primary Impression: UTI (urinary tract infection) Qualified Codes: N39.0 - Urinary tract infection, site not specified Referrals: Primary Care Physician Patient Instructions: General Instructions, Urinary Traction Infection in Older Adults (ED) Departure Forms: Tests/Procedures Additional Instruction: Rest, hydrate. Begin antibiotics today and take them until every pill is gone. Follow with the primary care provider. Return to the ED for worsening symptoms or any urgent or emergent medical condition. Scripts Cephalexin (Keflex) 500 Mg Cap 500 MG PO Q12H for Infection for 5 Days, #10 CAP 0 Refills Prov: Serafin Richey MD 09/30/17 Disposition: 01 DISCHARGE HOME Condition: Stable Serafin Richey MD Sep 30, 2017 15:14
--- NOTE | 2017-10-01 21:51 | EKG ---
Date Performed: 09/30/2017 Time Performed: 11:59:52 PTAGE: 81 years EKG: Sinus rhythm WITH OCCASIONAL SUPRAVENTRICULAR PREMATURE COMPLEXES LOW QRS VOLTAGE IN PRECORDIAL LEADS INFERIOR MY OCARDIAL INFARCTION, POSSIBLY RECENT ABNORMAL ECG PREVIOUS TRACING : 08/23/2017 21.11 No significant change from previous tracing noted. DOCTOR: Gabriel Gastelum Interpretating Date/Time 10/01/2017 21:50:48
== END 2017-09-30 15:15 | disposition home or self-care (01) ==
LOC: NEPE 11:54
DX: N39.0 Urinary tract infection, site not specified (principal); B96.20 Unspecified Escherichia coli [E. coli] as the cause of diseases classified elsewhere; R94.31 Abnormal electrocardiogram [ECG] [EKG]; E11.9 Type 2 diabetes mellitus without complications; I10 Essential (primary) hypertension; I25.10 Atherosclerotic heart disease of native coronary artery without angina pectoris; M19.90 Unspecified osteoarthritis, unspecified site; M79.7 Fibromyalgia; E03.9 Hypothyroidism, unspecified; Z95.5 Presence of coronary angioplasty implant and graft; Z79.01 Long term (current) use of anticoagulants; Z79.84 Long term (current) use of oral hypoglycemic drugs
CPT/HCPCS: 70450; 71045; 71275; 80053; 81001; 82550; 83880; 84443; 84484; 85025; 85610; 85730; 87077; 87086; 87186; 93005; 96365; 99285; J0696; Q9967

== ENCOUNTER 2017-10-02 10:17 | Emergency (ER) | payer MEDICARE ==
[~2017-10-02] VITALS: Ht 157.5 cm; Wt 75.0 kg
[~2017-10-02 10:17] MED LIST changes: +CEPH-460 PO
[2017-10-02 10:23] VITALS: BP 195/88; PULSE 72; RESP 20; TEMP 97.4; O2SAT 96
--- NOTE | 2017-10-02 11:31 | RADRPT ---
EXAM DATE/TIME: 10/02/2017 11:04 [facility] COMPARISON: CT ABDOMEN & PELVIS W/O CONTRAST, August 24, 2017, 20:39. INDICATIONS : Diffuse abdominal pain and nausea. ORAL CONTRAST: No oral contrast ingested. RADIATION DOSE: 19.02 CTDIvol (mGy) MEDICAL HISTORY : Myocardial infarction. Gastroesophageal reflux disease. Cerebrovascular disease.Diabetes. Hypertensi on. SURGICAL HISTORY : Fusion, cervical. Coronary artery stent.Appendectomy.Cholecystectomy. AV shunt. Hysterectomy. ENCOUNTER: Initial ACUITY: 1 day PAIN SCALE: 4/10 LOCATION: Diffuse abdomen. TECHNIQUE: Volumetric scanning of the abdomen and pelvis was performed. Using automated exposure control and ad justment of the mA and/or kV according to patient size, radiation dose was kept as low as reasonably achievable to obtain optimal diagnostic quality images. DICOM format image data is available electro nically for review and comparison. FINDINGS: The lung base is are clear. There is no pericardial effusion The liver is free of focal defects. Surgical clips in the gallbladder fossa Spleen and pancreas unremarkable Adrenal glands appear normal Right and left kidneys are unremarkable. Moderate vascular calcifications are noted. There is no adenopathy There is no ascites Multiple diverticula are present in the sigmoid colon in the pelvis Bladder and adnexal regions are unremarkable Abdominal wall is intact. Degenerative changes are present in the lower lumbar spine. Signature is in is seen in the left glut eal region. CONCLUSION: Scattered diverticuli sigmoid colon without inflammatory changes. I do not see an et iology for the patient's elbow pain. Alfie Cast MD FACR on October 02, 2017 at 11:24 Board Certified Radiologist. This report was verified electronically.
[2017-10-02 12:02] LABS: AUTOMATED NEUTROPHIL # 8.5 TH/MM3 (1.8-7.7); BASOPHIL # 0.2 TH/MM3 (0-0.2); BASOPHIL % 1.7 % (0.0-2.0); EOSINOPHIL # 0.1 TH/MM3 (0-0.4); EOSINOPHIL % 1.1 % (0.0-4.0); HEMATOCRIT 40.3 % (35.0-46.0); HEMOGLOBIN 12.9 GM/DL (11.6-15.3); LYMPH % 19.8 % (9.0-44.0); LYMPHOCYTE # 2.3 TH/MM3 (1.0-4.8); MEAN CELL VOLUME 85.4 FL (80.0-100.0); MEAN CORPUSCULAR HEMOGLOBIN 27.4 PG (27.0-34.0); MEAN PLATELET VOLUME 8.8 FL (7.0-11.0); MONOCYTE # 0.6 TH/MM3 (0-0.9); NEUT % 72.4 % (16.0-70.0); PLATELET COUNT 268 TH/MM3 (150-450); RED BLOOD COUNT 4.71 MIL/MM3 (4.00-5.30); RED CELL DISTRIBUTION WIDTH 13.2 % (11.6-17.2); WHITE BLOOD COUNT 11.7 TH/MM3 (4.0-11.0)
[2017-10-02 12:15] LABS: CHLORIDE 106 MEQ/L (98-107); SODIUM (NA) 141 MEQ/L (136-145)
[2017-10-02 12:19] LABS: ALBUMIN 3.3 GM/DL (3.4-5.0); BICARBONATE 24.9 MEQ/L (21.0-32.0); BLOOD UREA NITROGEN 16 MG/DL (7-18); CALCIUM 8.7 MG/DL (8.5-10.1); GLUCOSE,RANDOM 158 MG/DL (74-106)
[2017-10-02 12:22] LABS: ALT (GPT) 13 U/L (10-53); AST (GOT) 17 U/L (15-37); CREATININE 0.87 MG/DL (0.50-1.00); GLOMERULAR FILTRATION RATE 62 ML/MIN (>89)
[2017-10-02 12:24] LABS: TOTAL BILIRUBIN ADULT 0.4 MG/DL (0.2-1.0); TOTAL PROTEIN 7.2 GM/DL (6.4-8.2)
[2017-10-02 12:25] LABS: ALKALINE PHOSPHATASE 93 U/L (45-117)
--- NOTE | 2017-10-02 12:47 | PD ---
HPI Chief Complaint: GI Complaint Time Seen by Provider: 10:32 Travel History International Travel<30 days: No Contact w/Intl Traveler<30days: No Traveled to known affect area: No History of Present Illness HPI This is a 81-year-old female who presents the ER complaining of abdominal pain and nausea and vomiting. Symptoms started a few days ago and associated with no appetite but no fever or chills. Patient was seen in the ER couple days ago and was found to have a urine infection now was prescribed Keflex. Patient is taking her medication as directed. PFSH Past Medical History Hx Anticoagulant Therapy: Yes Arthritis: Yes Blood Disorders: No Anxiety: Yes Depression: Yes Heart Rhythm Problems: Yes (NEW AFIB 12/29/15) Cancer: No Cardiac Catheterization: Yes Cardiovascular Problems: Yes (htn on meds) High Cholesterol: Yes Chest Pain: No Congestive Heart Failure: No Cerebrovascular Accident: Yes Coronary Artery Disease: Yes Diabetes: Yes (type 2) Patient Takes Glucophage: No Diminished Hearing: No Endocrine: Yes Fibromyalgia: Yes Gastrointestinal Disorders: Yes GERD: Yes Genitourinary: Yes Headaches: Yes Hepatitis: No Hiatal Hernia: No Hypertension: Yes Immune Disorder: No Implanted Vascular Access Dvce: Yes Kidney Stones: No Medical other: Yes (OPEN WOUNDS KAVITA. LEGS, FALL RISK, FIBROMYALGIA) Musculoskeletal: Yes (FIBROMYALGIA) Neurologic: Yes Psychiatric: Yes Reproductive: No Respiratory: No Immunizations Current: No Migraines: No Myocardial Infarction: Yes (DECEMBER 2015) Renal Failure: No Seizures: No Thyroid Disease: Yes (HYPOTHYROID) Ulcer: No Tetanus Vaccination: Unknown Influenza Vaccination: Yes ?: Not Menopausal: Yes : 5 Para: 4 Miscarriage: 1 Past Surgical History Abdominal Surgery: Yes (APPY, CHOLECYSTECTOMY) AICD: No Appendectomy: Yes Arteriovenous Shunt: Yes Body Medical Devices: CORONARY ARTERY STENTS AND CAROTID ARTERY STENTS Cardiac Surgery: No Cholecystectomy: Yes Coronary Stent: Yes (1993) Ear Surgery: No Endocrine Surgery: No Eye Surgery: No Genitourinary Surgery: Yes (BLADDER SUSPENSION, INTERSTIM. INS.(MEDTRONIC)) Gynecologic Surgery: Yes (BLADDER SURGERIES, PT HAS PESSARY) Hysterectomy: Yes Insulin Pump: No Joint Replacement: Yes (LEFT KNEE, PARTIAL) Oral Surgery: Yes (T & A) Pacemaker: No Thoracic Surgery: No Tonsillectomy: Yes Other Surgery: Yes (CERVICAL FUSION, CERV. SX X4) Social History Alcohol Use: No Tobacco Use: No Substance Use: No Allergies-Medications (Allergen,Severity, Reaction): Coded Allergies: No Known Drug Allergies (Verified Allergy, Unknown, 10/02/17) *MDRO Multi-Drug Resistant Organism (Verified Adverse Reaction, Unknown, ) MRSA PCR negative - 12/29/15 & 01/01/16 VRE PCR negative - 01/01/16 & 01/03/16 Cleared per Infection Control 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/08/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) - 06/28/13 Reported Meds & Prescriptions Reported Meds & Active Scripts Active Keflex (Cephalexin) 500 Mg Cap 500 Mg PO Q12H 5 Days Gentlecath Urinary Catheter (N/A) 8 Fr-16" Mis Ea .XX DIRECTED perform self cath BID Macrobid (Nitrofurantoin Monoh/Nitrofur Macro) 100 Mg Cap 100 Mg PO BID Norvasc (Amlodipine Besylate) 5 Mg Tab 5 Mg PO DAILY Reported Clonazepam 0.5 Mg Tab 0.5 Mg PO BID Lyrica (Pregabalin) 75 Mg Cap 75 Mg PO BID Pantoprazole (Pantoprazole Sodium) 40 Mg Tab 40 Mg PO DAILY Klor-Con 10 (Potassium Chloride) 10 Meq Tab 10 Meq PO DAILY Levothyroxine (Levothyroxine Sodium) 100 Mcg Tab 100 Mcg PO DAILY Glimepiride 1 Mg Tab 1 Mg PO BID Take with breakfast or first main meal Ranitidine 75 (Ranitidine HCl) 75 Mg Tab 150 Mg PO DAILY Take 30 to 60 minutes before eating food or drinking beverages that cause heartburn. Simvastatin 20 Mg Tab 20 Mg PO DAILY Clopidogrel (Clopidogrel Bisulfate) 75 Mg Tab 75 Mg PO DAILY Carvedilol 6.25 Mg Tab 12.5 Mg PO BID Bisoprolol (Bisoprolol Fumarate) 5 Mg Tab 5 Mg PO BID Review of Systems Except as stated in HPI: all other systems reviewed are Neg Physical Exam Narrative GENERAL: Alert oriented 3 no acute distress. SKIN: Focused skin assessment warm/dry. HEAD: Atraumatic. Normocephalic. EYES: Pupils equal and round. No scleral icterus. No injection or drainage. ENT: No nasal bleeding or discharge. Mucous membranes pink and moist. NECK: Trachea midline. No JVD. CARDIOVASCULAR: Regular rate and rhythm. No murmur appreciated. RESPIRATORY: No accessory muscle use. Clear to auscultation. Breath sounds equal bilaterally. GASTROINTESTINAL: Abdomen soft, non-tender, nondistended. Hepatic and splenic margins not palpable. MUSCULOSKELETAL: No obvious deformities. No clubbing. No cyanosis. No edema. NEUROLOGICAL: Awake and alert. No obvious cranial nerve deficits. Motor grossly within normal limits. Normal speech. PSYCHIATRIC: Appropriate mood and affect; insight and judgment normal. Data Data Last Documented VS Vital Signs Date Time Temp Pulse Resp B/P (MAP) Pulse Ox O2 Delivery O2 Flow Rate FiO2 10/02/17 10:23 97.4 72 20 195/88 (123) [address] Abd/Pel W/O Iv Contrast (10/02/17 ) Urinalysis - C+S If Indicated (10/02/17 10:49) Comprehensive Metabolic Panel (10/02/17 10:49) Complete Blood Count With Diff (10/02/17 10:49) Ed Discharge Order (10/02/17 12:46) Labs Laboratory Tests Test 10/02/17 11:45 White Blood Count 11.7 TH/MM3 Red Blood Count 4.71 MIL/MM3 Hemoglobin 12.9 GM/DL Hematocrit 40.3 % Mean Corpuscular Volume 85.4 FL Mean Corpuscular Hemoglobin 27.4 PG Mean Corpuscular Hemoglobin Concent 32.0 % Red Cell Distribution Width 13.2 % Platelet Count 268 TH/MM3 Mean Platelet Volume 8.8 FL Neutrophils (%) (Auto) 72.4 % Lymphocytes (%) (Auto) 19.8 % Monocytes (%) (Auto) 5.0 % Eosinophils (%) (Auto) 1.1 % Basophils (%) (Auto) 1.7 % Neutrophils # (Auto) 8.5 TH/MM3 Lymphocytes # (Auto) 2.3 TH/MM3 Monocytes # (Auto) 0.6 TH/MM3 Eosinophils # (Auto) 0.1 TH/MM3 Basophils # (Auto) 0.2 TH/MM3 CBC Comment DIFF FINAL Differential Comment Blood Urea Nitrogen 16 MG/DL Creatinine 0.87 MG/DL Random Glucose 158 MG/DL Total Protein 7.2 GM/DL Albumin 3.3 GM/DL Calcium Level 8.7 MG/DL Alkaline Phosphatase 93 U/L Aspartate Amino Transf (AST/SGOT) 17 U/L Alanine Aminotransferase (ALT/SGPT) 13 U/L Total Bilirubin 0.4 MG/DL Sodium Level 141 MEQ/L Potassium Level 3.5 MEQ/L Chloride Level 106 MEQ/L Carbon Dioxide Level 24.9 MEQ/L Anion Gap 10 MEQ/L Estimat Glomerular Filtration Rate 62 ML/MIN MDM Medical Decision Making Medical Screen Exam Complete: Yes Emergency Medical Condition: Yes Differential Diagnosis UTI, obstruction, malignancy. Narrative Course This is an 82-year-old female presents here complaining of abdominal pain and nausea and vomiting. During the her stay at the ER she did not have any episodes of vomiting, CT shows no abnormalities except for diverticulosis with no evidence of diverticulitis. The fact that she was here before couple days ago and was diagnosed with UTI. I believe this patient would benefit of finishing her course of antibiotics and she can follow-up with her primary care physician as needed. Diagnosis Primary Impression: UTI (urinary tract infection) Qualified Codes: N30.00 - Acute cystitis without hematuria Additional Instructions: Take medication as directed and return to the ER if symptoms change got approved. Disposition: 01 DISCHARGE HOME Condition: Stable Lex Piedra MD Oct 02, 2017 12:47
== END 2017-10-02 13:00 | disposition home or self-care (01) ==
LOC: PHED 10:17
DX: N30.00 Acute cystitis without hematuria (principal); E03.9 Hypothyroidism, unspecified; I10 Essential (primary) hypertension; I25.10 Atherosclerotic heart disease of native coronary artery without angina pectoris; K21.9 Gastro-esophageal reflux disease without esophagitis; M79.7 Fibromyalgia
CPT/HCPCS: 74176; 80053; 85025; 99284

== ENCOUNTER 2017-11-02 11:31 | Emergency (ER) | payer MEDICARE ==
[~2017-11-02] VITALS: Ht 160 cm; Wt 77.0 kg
[2017-11-02 11:31] VITALS: BP 164/84; PULSE 71; RESP 20; TEMP 98.6; O2SAT 94
[~2017-11-02 11:31] MED LIST changes: -TYLE325T PO
[2017-11-02] MEDS ORDERED: TRAZ50TA12 PO (11:52)
[2017-11-02] MEDS ORDERED: ASPI-516 CHEW (11:52)
[2017-11-02] MEDS ORDERED: HYOS1TAB9 PO (11:52)
[2017-11-02] MEDS ORDERED: ALBU1AER5 INH (11:52)
[2017-11-02] MEDS ORDERED: VITA400T14 PO (11:52)
--- NOTE | 2017-11-02 11:59 | PD ---
HPI Chief Complaint: Respiratory Symptoms Time Seen by Provider: 11:43 Travel History International Travel<30 days: No Contact w/Intl Traveler<30days: No Traveled to known affect area: No History of Present Illness HPI This 81-year-old female is brought by paramedics. Her neighbor called 911 because the patient was complaining to her that she was short of breath. The patient says she has never smoked and is not aware of any lung disease although she has been on medications for COPD in the past. She said she woke this morning and was gasping for breath. She denies any chest pain. She has been on potassium in the past she is on medication for hypertension. She has a history of congestive heart failure PFSH Past Medical History Hx Anticoagulant Therapy: Yes Arthritis: Yes Blood Disorders: No Anxiety: Yes Depression: Yes Heart Rhythm Problems: Yes (NEW AFIB 12/29/15) Cancer: No Cardiac Catheterization: Yes Cardiovascular Problems: Yes ([place]) High Cholesterol: Yes Chemotherapy: No Chest Pain: No Congestive Heart Failure: No Cerebrovascular Accident: No Coronary Artery Disease: Yes Diabetes: Yes Patient Takes Glucophage: Yes (GLIMEPIRIDE) Diminished Hearing: No Endocrine: Yes Fibromyalgia: Yes Gastrointestinal Disorders: Yes GERD: Yes Genitourinary: Yes Headaches: Yes Hepatitis: No Hiatal Hernia: No Hypertension: Yes Immune Disorder: No Implanted Vascular Access Dvce: Yes Kidney Stones: No Medical other: Yes (OPEN WOUNDS KAVITA. LEGS, FALL RISK, FIBROMYALGIA) Musculoskeletal: Yes (FIBROMYALGIA) Neurologic: Yes Psychiatric: Yes Reproductive: No Respiratory: No Immunizations Current: No Migraines: No Myocardial Infarction: Yes (DECEMBER 2015) Renal Failure: No Seizures: No Thyroid Disease: Yes (HYPOTHYROID) Ulcer: No Tetanus Vaccination: < 5 Years Influenza Vaccination: Yes Menopausal: Yes : 5 Para: 4 Miscarriage: 1 Past Surgical History Abdominal Surgery: Yes (APPY, CHOLECYSTECTOMY) AICD: No Appendectomy: Yes Arteriovenous Shunt: Yes Body Medical Devices: CORONARY ARTERY STENTS AND CAROTID ARTERY STENTS Cardiac Surgery: No Cholecystectomy: Yes Coronary Stent: Yes (1993) Ear Surgery: No Endocrine Surgery: No Eye Surgery: No Genitourinary Surgery: Yes (BLADDER SUSPENSION, INTERSTIM. INS.(MEDTRONIC)) Gynecologic Surgery: Yes (BLADDER SURGERIES, PT HAS PESSARY) Hysterectomy: Yes Insulin Pump: No Joint Replacement: Yes (LEFT KNEE, PARTIAL) Oral Surgery: Yes (T & A) Pacemaker: No Thoracic Surgery: No Tonsillectomy: Yes Other Surgery: Yes (CERVICAL FUSION, CERV. SX X4) Social History Alcohol Use: No Tobacco Use: No Substance Use: No Allergies-Medications (Allergen,Severity, Reaction): Coded Allergies: No Known Drug Allergies (Verified Allergy, Unknown, 10/02/17) *MDRO Multi-Drug Resistant Organism (Verified Adverse Reaction, Unknown, ) MRSA PCR negative - 12/29/15 & 01/01/16 VRE PCR negative - 01/01/16 & 01/03/16 Cleared per Infection Control 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/08/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) - 06/28/13 Reported Meds & Prescriptions Reported Meds & Active Scripts Active Norvasc (Amlodipine Besylate) 5 Mg Tab 5 Mg PO DAILY Reported Vitamin D2 (Ergocalciferol) 400 Unit Tab 50,000 Units PO WEEKLY Trazodone (Trazodone HCl) 50 Mg Tab 50 Mg PO HS Proair Respiclick Inh (Albuterol Sulfate) 90 Mcg/Act Aerp 2 Puff INH Q6H PRN Hyoscyamine (Hyoscyamine Sulfate) 0.125 Mg Tab 0.125 Mg PO TID PRN Aspirin 81 Mg Chew 81 Mg CHEW DAILY Clonazepam 0.5 Mg Tab 0.5 Mg PO BID Lyrica (Pregabalin) 75 Mg Cap 75 Mg PO BID Pantoprazole (Pantoprazole Sodium) 40 Mg Tab 40 Mg PO DAILY Levothyroxine (Levothyroxine Sodium) 100 Mcg Tab 100 Mcg PO DAILY Glimepiride 1 Mg Tab 1 Mg PO BID Take with breakfast or first main meal Ranitidine 75 (Ranitidine HCl) 75 Mg Tab 150 Mg PO DAILY Take 30 to 60 minutes before eating food or drinking beverages that cause heartburn. Simvastatin 20 Mg Tab 20 Mg PO DAILY Clopidogrel (Clopidogrel Bisulfate) 75 Mg Tab 75 Mg PO DAILY Carvedilol 6.25 Mg Tab 12.5 Mg PO BID Bisoprolol (Bisoprolol Fumarate) 5 Mg Tab 5 Mg PO BID Review of Systems General / Constitutional: No: Fever, Chills Eyes: No: Diploplia, Blurred Vision HENT: No: Headaches, Vertigo Cardiovascular: No: Chest Pain or Discomfort, Palpitations Respiratory: Positive: Cough, Shortness of Breath Gastrointestinal: No: Nausea, Vomiting Genitourinary: No: Urgency, Frequency Musculoskeletal: No: Myalgias, Arthralgias Skin: No Rash Hematologic/Lymphatic: No: Easy Bruising Physical Exam Narrative GENERAL: Well-developed female SKIN: Focused skin assessment warm/dry. HEAD: Atraumatic. Normocephalic. EYES: Pupils equal and round. No scleral icterus. No injection or drainage. ENT: No nasal bleeding or discharge. Mucous membranes pink and moist. NECK: Trachea midline. No JVD. CARDIOVASCULAR: Regular rate and rhythm. No murmur appreciated. RESPIRATORY: No accessory muscle use. Clear to auscultation. Breath sounds equal bilaterally. GASTROINTESTINAL: Abdomen soft, non-tender, nondistended. Hepatic and splenic margins not palpable. MUSCULOSKELETAL: No obvious deformities. No clubbing. No cyanosis. Trace edema. NEUROLOGICAL: Awake and alert. No obvious cranial nerve deficits. Motor grossly within normal limits. Normal speech. PSYCHIATRIC: Appropriate mood and affect; insight and judgment normal. Data Data Last Documented VS Vital Signs Date Time Temp Pulse Resp B/P (MAP) Pulse Ox O2 Delivery O2 Flow Rate FiO2 11/02/17 11:44 94 Room Air 11/02/17 11:31 98.6 71 20 164/84 (110) Orders Orders Electrocardiogram (11/02/17 11:57) Complete Blood Count With Diff (11/02/17 11:57) Comprehensive Metabolic Panel (11/02/17 11:57) Troponin I (11/02/17 11:57) B-Type Natriuretic Peptide (11/02/17 11:57) Urinalysis - C+S If Indicated (11/02/17 11:57) Chest, Single Ap (11/02/17 12:54) Potassium Chloride (Kcl) (11/02/17 13:30) Furosemide Inj (Lasix Inj) (11/02/17 13:30) Labs Laboratory Tests Test 11/02/17 12:05 White Blood Count 11.6 TH/MM3 Red Blood Count 4.61 MIL/MM3 Hemoglobin 12.5 GM/DL Hematocrit 38.6 % Mean Corpuscular Volume 83.8 FL Mean Corpuscular Hemoglobin 27.1 PG Mean Corpuscular Hemoglobin Concent 32.4 % Red Cell Distribution Width 14.0 % Platelet Count 222 TH/MM3 Mean Platelet Volume 8.7 FL CBC Comment AUTO DIFF Differential Total Cells Counted 100 Neutrophils % (Manual) 65 % Lymphocytes % 25 % Monocytes % 9 % Basophils % 1 % Neutrophils # (Manual) 7.5 TH/MM3 Differential Comment FINAL DIFF MANUAL Platelet Estimate NORMAL Platelet Morphology Comment NORMAL Red Cell Morphology Comment NORMAL Blood Urea Nitrogen 18 MG/DL Creatinine 0.79 MG/DL Random Glucose 156 MG/DL Total Protein 6.7 GM/DL Albumin 2.8 GM/DL Calcium Level 8.4 MG/DL Alkaline Phosphatase 87 U/L Aspartate Amino Transf (AST/SGOT) 12 U/L Alanine Aminotransferase (ALT/SGPT) 12 U/L Total Bilirubin 0.6 MG/DL Sodium Level 139 MEQ/L Potassium Level 3.5 MEQ/L Chloride Level 105 MEQ/L Carbon Dioxide Level 25.2 MEQ/L Anion Gap 9 MEQ/L Estimat Glomerular Filtration Rate 70 ML/MIN Troponin I LESS THAN 0.02 NG/ML B-Type Natriuretic Peptide 361 PG/ML MDM Medical Decision Making Medical Screen Exam Complete: Yes Emergency Medical Condition: Yes Medical Record Reviewed: Yes Differential Diagnosis Chest x-ray is read as unchanged from previous x-rays. Her BNP is slightly elevated at 300. Put on 20 mg of Lasix daily. Her potassium is at the lower end of normal and I will also prescribe a supplement she is stable for discharge Narrative Course Patient has been given 20 mg IV Lasix. She has a history of COPD. Her lungs are clear at this time. Her O2 sat is 9798%. She has some mild elevation of BNP and will be put on 20 g of Lasix Diagnosis Primary Impression: CHF (congestive heart failure) Scripts Potassium Chloride Microencaps (Potassium Chloride Microencaps) 10 Meq Tab 10 MEQ PO DAILY for Electrolyte Replacement, #30 TAB 0 Refills Prov: Cyril Evans MD 11/02/17 Furosemide (Lasix) 20 Mg Tab 20 MG PO DAILY, #30 TAB 0 Refills Prov: Cyril Evans MD 11/02/17 Disposition: 01 DISCHARGE HOME Condition: Stable Cyril Evans MD Nov 02, 2017 11:59
[2017-11-02 12:19] LABS: HEMATOCRIT 38.6 % (35.0-46.0); HEMOGLOBIN 12.5 GM/DL (11.6-15.3); MEAN CELL VOLUME 83.8 FL (80.0-100.0); MEAN CORPUSCULAR HEMOGLOBIN 27.1 PG (27.0-34.0); MEAN CORPUSCULAR HGB CONC 32.4 % (32.0-36.0); MEAN PLATELET VOLUME 8.7 FL (7.0-11.0); PLATELET COUNT 222 TH/MM3 (150-450); RED BLOOD COUNT 4.61 MIL/MM3 (4.00-5.30); WHITE BLOOD COUNT 11.6 TH/MM3 (4.0-11.0)
[2017-11-02 12:30] LABS: CHLORIDE 105 MEQ/L (98-107); SODIUM (NA) 139 MEQ/L (136-145)
[2017-11-02 12:33] LABS: ALBUMIN 2.8 GM/DL (3.4-5.0); BICARBONATE 25.2 MEQ/L (21.0-32.0); BLOOD UREA NITROGEN 18 MG/DL (7-18); CALCIUM 8.4 MG/DL (8.5-10.1); GLUCOSE,RANDOM 156 MG/DL (74-106)
[2017-11-02 12:36] LABS: ALT (GPT) 12 U/L (10-53); AST (GOT) 12 U/L (15-37); CREATININE 0.79 MG/DL (0.50-1.00); GLOMERULAR FILTRATION RATE 70 ML/MIN (>89)
[2017-11-02 12:38] LABS: TOTAL BILIRUBIN ADULT 0.6 MG/DL (0.2-1.0); TOTAL PROTEIN 6.7 GM/DL (6.4-8.2)
[2017-11-02 12:39] LABS: ALKALINE PHOSPHATASE 87 U/L (45-117)
[2017-11-02 12:41] LABS: TROPONIN I LESS THAN 0.02 NG/ML (0.02-0.05)
[2017-11-02 12:42] LABS: BASOPHILS 1 % (0-2); LYMPHOCYTES 25 % (9-44); MONOCYTES 9 % (0-8); NEUTROPHIL # MANUAL DIFF 7.5 TH/MM3 (1.8-7.7); POLYS (SEG NEUTROPHILS) 65 % (16-70)
[2017-11-02 13:00] VITALS: BP 160/76; PULSE 72; RESP 18; O2SAT 99
[2017-11-02] MEDS ORDERED: FUROSEMIDE 20 MG/2 ML VIAL IV PUSH ONE (13:30)
[2017-11-02] MEDS ORDERED: POTASSIUM CHLORIDE 10 MEQ CONTROLLED RELEASE TAB PO ONE (13:30)
--- NOTE | 2017-11-02 13:37 | RADRPT ---
EXAM DATE/TIME: 11/02/2017 13:08 [facility] COMPARISON: CHEST SINGLE AP, September 30, 2017, 12:11. INDICATIONS : Cough MEDICAL HISTORY : None. SURGICAL HISTORY : None. ENCOUNTER: Initial ACUITY: 1 day PAIN SCORE: 0/10 LOCATION: chest FINDINGS: Diffuse interstitial prominence with persistent linear opacities in the left lower lung zone and righ t medial lower lung zone. No new focal pleural or parenchymal opacities. Cardiomediastinal contours a re within normal limits. The remainder of the exam is unchanged. CONCLUSION: 1. No acute abnormality or significant interval change. Mart Garber MD on November 02, 2017 at 13:33 Board Certified Radiologist. This report was verified electronically.
[2017-11-02] MEDS ORDERED: POTA10TA15 PO (13:47)
[2017-11-02] MEDS ORDERED: FURO1TAB62 PO (13:47)
[2017-11-02 14:07] LABS: BILIRUBIN, URINE NEG (NEG); BLOOD, URINE NEG (NEG); GLUCOSE,URINE NEG (NEG); KETONE, URINE NEG (NEG); NITRITE,URINE NEG (NEG); PH, URINE 7.5 (5.0-8.5); URINE COLOR YELLOW (YELLW/STRAW); URINE LEUKOCYTE ESTERASE NEG (NEG)
[2017-11-02 14:11] LABS: BACTERIA, URINE MANY /hpf; RBC, URINE 0-3 /hpf (0-3); SQUAMOUS EPITHELIAL CELL URINE 0-5 /hpf (0-5)
[2017-11-02 15:19] VITALS: BP 158/62
--- NOTE | 2017-11-02 15:30 | EKG ---
Date Performed: 11/02/2017 Time Performed: 12:12:58 PTAGE: 81 years EKG: Sinus rhythm LOW QRS VOLTAGE IN PRECORDIAL LEADS LEFT VENTRICULAR HYPERTROPHY AND ST-T CHANGE INFERIOR MYOCARDIAL INFARCTION Since the PREVIOUS TRACING , no significant change noted ACUTE GA PREVIOUS TRACIN 8 11.59 DOCTOR: Theo Arellano Interpretating Date/Time 11/02/2017 15:22:42
== END 2017-11-02 15:25 | disposition home or self-care (01) ==
LOC: PHED 11:31
DX: I11.0 Hypertensive heart disease with heart failure (principal); I50.9 Heart failure, unspecified; I48.91 Unspecified atrial fibrillation; F41.9 Anxiety disorder, unspecified; F32.9 Major depressive disorder, single episode, unspecified; E78.00 Pure hypercholesterolemia, unspecified; I25.10 Atherosclerotic heart disease of native coronary artery without angina pectoris; E11.9 Type 2 diabetes mellitus without complications; E03.9 Hypothyroidism, unspecified
CPT/HCPCS: 71045; 80053; 81001; 83880; 84484; 85007; 85027; 87086; 93005; 96374; 99285; J1940

== ENCOUNTER 2017-11-05 12:05 | Emergency (ER) | payer MEDICARE ==
[~2017-11-05 12:05] MED LIST changes: +ALBU1AER5 INH; +ASPI-516 CHEW; -CATH8MIS; -CEPH-460 PO; +FURO1TAB62 PO; +HYOS1TAB9 PO; -KLOR10TA PO; -MACR100C2 PO; +POTA10TA15 PO; +TRAZ50TA12 PO; +VITA400T14 PO
[2017-11-05 12:08] VITALS: BP 164/86; PULSE 71; RESP 20; TEMP 98; O2SAT 100
--- NOTE | 2017-11-05 13:04 | PD ---
HPI Chief Complaint: Respiratory Symptoms Time Seen by Provider: 12:56 Travel History International Travel<30 days: No Contact w/Intl Traveler<30days: No Traveled to known affect area: No History of Present Illness HPI This 79-year-old female apparently called [facility] with complaint of shortness of breath. She was here a couple days ago with dyspnea and was released. She has a history of CHF. She says she never smoked. She does live alone. She denies any chest pain. She does get confused at times. Her daughter has come to the ER and says that she lives very close and checks on a 4 times daily. She is aware that she is developing some dementia PFSH Past Medical History Hx Anticoagulant Therapy: Yes Arthritis: Yes Blood Disorders: No Anxiety: Yes Depression: Yes Heart Rhythm Problems: Yes (NEW AFIB 12/29/15) Cancer: No Cardiac Catheterization: Yes Cardiovascular Problems: Yes (ME) High Cholesterol: Yes Chemotherapy: No Chest Pain: No Congestive Heart Failure: No Cerebrovascular Accident: No Coronary Artery Disease: Yes Diabetes: Yes Patient Takes Glucophage: No Diminished Hearing: No Endocrine: Yes Fibromyalgia: Yes Gastrointestinal Disorders: Yes GERD: Yes Genitourinary: Yes Headaches: Yes Hepatitis: No Hiatal Hernia: No Hypertension: Yes Immune Disorder: No Implanted Vascular Access Dvce: Yes Kidney Stones: No Medical other: Yes (OPEN WOUNDS KAVITA. LEGS, FALL RISK, FIBROMYALGIA) Musculoskeletal: Yes (FIBROMYALGIA) Neurologic: Yes Psychiatric: Yes Reproductive: No Respiratory: No Immunizations Current: No Migraines: No Myocardial Infarction: Yes (DECEMBER 2015) Renal Failure: No Seizures: No Thyroid Disease: Yes (HYPOTHYROID) Ulcer: No Menopausal: Yes : 5 Para: 4 Miscarriage: 1 Past Surgical History Abdominal Surgery: Yes (APPY, CHOLECYSTECTOMY) AICD: No Appendectomy: Yes Arteriovenous Shunt: Yes Body Medical Devices: CORONARY ARTERY STENTS AND CAROTID ARTERY STENTS Cardiac Surgery: No Cholecystectomy: Yes Coronary Stent: Yes (1993) Ear Surgery: No Endocrine Surgery: No Eye Surgery: No Genitourinary Surgery: Yes (BLADDER SUSPENSION, INTERSTIM. INS.(MEDTRONIC)) Gynecologic Surgery: Yes (BLADDER SURGERIES, PT HAS PESSARY) Hysterectomy: Yes Insulin Pump: No Joint Replacement: Yes (LEFT KNEE, PARTIAL) Oral Surgery: Yes (T & A) Pacemaker: No Thoracic Surgery: No Tonsillectomy: Yes Other Surgery: Yes (CERVICAL FUSION, CERV. SX X4) Social History Alcohol Use: No Tobacco Use: No Substance Use: No Allergies-Medications (Allergen,Severity, Reaction): Coded Allergies: No Known Drug Allergies (Verified Allergy, Unknown, 11/05/17) *MDRO Multi-Drug Resistant Organism (Verified Adverse Reaction, Unknown, ) MRSA PCR negative - 12/29/15 & 01/01/16 VRE PCR negative - 01/01/16 & 01/03/16 Cleared per Infection Control 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/08/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) - 06/28/13 Reported Meds & Prescriptions Reported Meds & Active Scripts Active Potassium Chloride Microencaps 10 Meq Tab 10 Meq PO DAILY Lasix (Furosemide) 20 Mg Tab 20 Mg PO DAILY Norvasc (Amlodipine Besylate) 5 Mg Tab 5 Mg PO DAILY Reported Vitamin D2 (Ergocalciferol) 400 Unit Tab 50,000 Units PO WEEKLY Trazodone (Trazodone HCl) 50 Mg Tab 50 Mg PO HS Proair Respiclick Inh (Albuterol Sulfate) 90 Mcg/Act Aerp 2 Puff INH Q6H PRN Hyoscyamine (Hyoscyamine Sulfate) 0.125 Mg Tab 0.125 Mg PO TID PRN Aspirin 81 Mg Chew 81 Mg CHEW DAILY Clonazepam 0.5 Mg Tab 0.5 Mg PO BID Lyrica (Pregabalin) 75 Mg Cap 75 Mg PO BID Pantoprazole (Pantoprazole Sodium) 40 Mg Tab 40 Mg PO DAILY Levothyroxine (Levothyroxine Sodium) 100 Mcg Tab 100 Mcg PO DAILY Glimepiride 1 Mg Tab 1 Mg PO BID Take with breakfast or first main meal Ranitidine 75 (Ranitidine HCl) 75 Mg Tab 150 Mg PO DAILY Take 30 to 60 minutes before eating food or drinking beverages that cause heartburn. Simvastatin 20 Mg Tab 20 Mg PO DAILY Clopidogrel (Clopidogrel Bisulfate) 75 Mg Tab 75 Mg PO DAILY Carvedilol 6.25 Mg Tab 12.5 Mg PO BID Bisoprolol (Bisoprolol Fumarate) 5 Mg Tab 5 Mg PO BID Review of Systems General / Constitutional: No: Fever, Chills Eyes: No: Diploplia, Blurred Vision HENT: No: Headaches, Vertigo Cardiovascular: No: Chest Pain or Discomfort, Palpitations Respiratory: Positive: Shortness of Breath Gastrointestinal: No: Nausea, Vomiting Genitourinary: No: Urgency, Frequency Musculoskeletal: No: Myalgias, Arthralgias Endocrine: No: Heat Intolerance, Cold Intolerance Hematologic/Lymphatic: No: Easy Bruising Physical Exam Narrative GENERAL: Well-developed female SKIN: Focused skin assessment warm/dry. HEAD: Atraumatic. Normocephalic. EYES: Pupils equal and round. No scleral icterus. No injection or drainage. ENT: No nasal bleeding or discharge. Mucous membranes pink and moist. NECK: Trachea midline. No JVD. CARDIOVASCULAR: Regular rate and rhythm. No murmur appreciated. RESPIRATORY: No accessory muscle use. Clear to auscultation. Breath sounds equal bilaterally. GASTROINTESTINAL: Abdomen soft, non-tender, nondistended. Hepatic and splenic margins not palpable. MUSCULOSKELETAL: No obvious deformities. No clubbing. No cyanosis. No edema. NEUROLOGICAL: Awake and alert. No obvious cranial nerve deficits. Motor grossly within normal limits. Normal speech. PSYCHIATRIC: Appropriate mood and affect; insight and judgment normal. Data Data Last Documented VS Vital Signs Date Time Temp Pulse Resp B/P (MAP) Pulse Ox O2 Delivery O2 Flow Rate FiO2 11/05/17 12:46 97 Room Air 11/05/17 12:08 98.0 71 20 164/86 (112) Orders Orders Complete Blood Count With Diff (11/05/17 13:05) Basic Metabolic Panel (Bmp) (11/05/17 13:05) Troponin I (11/05/17 13:05) B-Type Natriuretic Peptide (11/05/17 13:05) Urinalysis - C+S If Indicated (11/05/17 13:05) Electrocardiogram (11/05/17 13:34) Labs Laboratory Tests Test 11/05/17 13:15 White Blood Count 9.1 TH/MM3 Red Blood Count 4.96 MIL/MM3 Hemoglobin 13.3 GM/DL Hematocrit 41.3 % Mean Corpuscular Volume 83.3 FL Mean Corpuscular Hemoglobin 26.8 PG Mean Corpuscular Hemoglobin Concent 32.2 % Red Cell Distribution Width 14.3 % Platelet Count 290 TH/MM3 Mean Platelet Volume 8.6 FL Neutrophils (%) (Auto) 66.1 % Lymphocytes (%) (Auto) 24.8 % Monocytes (%) (Auto) 7.1 % Eosinophils (%) (Auto) 1.6 % Basophils (%) (Auto) 0.4 % Neutrophils # (Auto) 6.1 TH/MM3 Lymphocytes # (Auto) 2.3 TH/MM3 Monocytes # (Auto) 0.6 TH/MM3 Eosinophils # (Auto) 0.1 TH/MM3 Basophils # (Auto) 0.0 TH/MM3 CBC Comment DIFF FINAL Differential Comment Blood Urea Nitrogen 22 MG/DL Creatinine 0.82 MG/DL Random Glucose 155 MG/DL Calcium Level 8.6 MG/DL Sodium Level 138 MEQ/L Potassium Level 3.5 MEQ/L Chloride Level 104 MEQ/L Carbon Dioxide Level 26.4 MEQ/L Anion Gap 8 MEQ/L Estimat Glomerular Filtration Rate 67 ML/MIN Troponin I LESS THAN 0.02 NG/ML B-Type Natriuretic Peptide 171 PG/ML MDM Medical Decision Making Medical Screen Exam Complete: Yes Emergency Medical Condition: Yes Medical Record Reviewed: Yes Differential Diagnosis Differential includes COPD, CHF, anxiety Narrative Course Lungs are clear now her BNP is 170 it was 320 the other day. She appears stable and will be released. Her daughter is come to the emergency department. The patient is going for upper endoscopy tomorrow Diagnosis Primary Impression: CHF (congestive heart failure) Disposition: 01 DISCHARGE HOME Condition: Stable Cyril Evans MD Nov 05, 2017 13:04
[2017-11-05 13:21] LABS: AUTOMATED NEUTROPHIL # 6.1 TH/MM3 (1.8-7.7); BASOPHIL % 0.4 % (0.0-2.0); EOSINOPHIL # 0.1 TH/MM3 (0-0.4); EOSINOPHIL % 1.6 % (0.0-4.0); HEMATOCRIT 41.3 % (35.0-46.0); HEMOGLOBIN 13.3 GM/DL (11.6-15.3); LYMPH % 24.8 % (9.0-44.0); LYMPHOCYTE # 2.3 TH/MM3 (1.0-4.8); MEAN CELL VOLUME 83.3 FL (80.0-100.0); MEAN CORPUSCULAR HEMOGLOBIN 26.8 PG (27.0-34.0); MEAN CORPUSCULAR HGB CONC 32.2 % (32.0-36.0); MEAN PLATELET VOLUME 8.6 FL (7.0-11.0); MONO % 7.1 % (0.0-8.0); MONOCYTE # 0.6 TH/MM3 (0-0.9); NEUT % 66.1 % (16.0-70.0); PLATELET COUNT 290 TH/MM3 (150-450); RED BLOOD COUNT 4.96 MIL/MM3 (4.00-5.30); RED CELL DISTRIBUTION WIDTH 14.3 % (11.6-17.2); WHITE BLOOD COUNT 9.1 TH/MM3 (4.0-11.0)
[2017-11-05 13:30] LABS: CHLORIDE 104 MEQ/L (98-107); SODIUM (NA) 138 MEQ/L (136-145)
[2017-11-05 13:32] LABS: CALCIUM 8.6 MG/DL (8.5-10.1)
[2017-11-05 13:33] LABS: BICARBONATE 26.4 MEQ/L (21.0-32.0); BLOOD UREA NITROGEN 22 MG/DL (7-18); GLUCOSE,RANDOM 155 MG/DL (74-106)
[2017-11-05 13:36] LABS: CREATININE 0.82 MG/DL (0.50-1.00); GLOMERULAR FILTRATION RATE 67 ML/MIN (>89)
[2017-11-05 13:40] LABS: TROPONIN I LESS THAN 0.02 NG/ML (0.02-0.05)
[2017-11-05 14:12] VITALS: BP 174/100; PULSE 98; RESP 16; O2SAT 95
--- NOTE | 2017-11-07 13:04 | EKG ---
Date Performed: 11/05/2017 Time Performed: 13:45:11 PTAGE: 81 years EKG: Normal Sinus rhythm Age indeterminant, possibly recent or acute inferior infarct with ST depressions laterally. Suggest possible ischemia Changes are similar to recent tracing. Clinical correlation strongly recommended. A BNORMAL ECG PREVIOUS TRACING : 11/02/2017 12.12 DOCTOR: Hemal Baker Interpretating Date/Time 11/07/2017 13:02:48
== END 2017-11-05 14:24 | disposition home or self-care (01) ==
LOC: PHED 12:05
DX: I11.0 Hypertensive heart disease with heart failure (principal); I50.9 Heart failure, unspecified; F41.9 Anxiety disorder, unspecified; F32.9 Major depressive disorder, single episode, unspecified; I48.91 Unspecified atrial fibrillation; E78.00 Pure hypercholesterolemia, unspecified; I25.10 Atherosclerotic heart disease of native coronary artery without angina pectoris; E11.9 Type 2 diabetes mellitus without complications; E03.9 Hypothyroidism, unspecified
CPT/HCPCS: 80048; 83880; 84484; 85025; 93005; 99284

== ENCOUNTER 2017-11-08 13:11 | Observation (INO) | payer MEDICARE ==
[2017-11-08] VITALS (7 sets, daily range): BP systolic 138–184; BP diastolic 70–88; PULSE 59–83; RESP 16–19; TEMP 97.8–98.1; O2SAT 95–99
[~2017-11-08] VITALS: Ht 160 cm; Wt 79.3 kg
--- NOTE | 2017-11-08 13:49 | PD ---
HPI Chief Complaint: chest pain Time Seen by Provider: 13:34 Travel History International Travel<30 days: No Contact w/Intl Traveler<30days: No Traveled to known affect area: No History of Present Illness HPI 81yo F with PMH of CHF, HTN, DM, CAD here with c/o right sided chest pressure and sob for about an hour. Said she has been coughing as well. Denies any fever, n/v, abdominal pain, focal weakness or numbness. Pt was seen recently in the ED 11/02 and 11/05/17 for sob. Pt did not have chest pain 11/05 and was discharged home. Said her station engineer is Dr. Lacy and she has not had any recent stress test or chest pain. As per our record she had a ST elevation GA in 2015 that was medically managed. PFSH Past Medical History Hx Anticoagulant Therapy: Yes Arthritis: Yes Blood Disorders: No Anxiety: Yes Depression: Yes Heart Rhythm Problems: Yes (NEW AFIB 12/29/15) Cancer: No Cardiac Catheterization: Yes Cardiovascular Problems: Yes (HTN) High Cholesterol: Yes Chemotherapy: No Chest Pain: No Congestive Heart Failure: No Cerebrovascular Accident: No Coronary Artery Disease: Yes Diabetes: Yes Patient Takes Glucophage: No Diminished Hearing: No Endocrine: Yes Fibromyalgia: Yes Gastrointestinal Disorders: Yes GERD: Yes Genitourinary: Yes Headaches: Yes Hepatitis: No Hiatal Hernia: No Hypertension: Yes Immune Disorder: No Implanted Vascular Access Dvce: Yes Kidney Stones: No Medical other: Yes (FIBROMYALGIA) Musculoskeletal: Yes (FIBROMYALGIA) Neurologic: Yes Psychiatric: Yes Reproductive: No Respiratory: No Immunizations Current: No Migraines: No Myocardial Infarction: Yes (DECEMBER 2015) Renal Failure: No Seizures: No Thyroid Disease: Yes (HYPOTHYROID) Ulcer: No Tetanus Vaccination: > 5 Years Influenza Vaccination: Yes Menopausal: Yes : 5 Para: 4 Miscarriage: 1 Past Surgical History Abdominal Surgery: Yes (APPY, CHOLECYSTECTOMY) AICD: No Appendectomy: Yes Arteriovenous Shunt: Yes Body Medical Devices: CORONARY ARTERY STENTS AND CAROTID ARTERY STENTS Cardiac Surgery: No Cholecystectomy: Yes Coronary Stent: Yes (1993) Ear Surgery: No Endocrine Surgery: No Eye Surgery: No Genitourinary Surgery: Yes (BLADDER SUSPENSION, INTERSTIM. INS.(MEDTRONIC)) Gynecologic Surgery: Yes (BLADDER SURGERIES, PT HAS PESSARY) Hysterectomy: Yes Insulin Pump: No Joint Replacement: Yes (LEFT KNEE, PARTIAL) Oral Surgery: Yes (T & A) Pacemaker: No Thoracic Surgery: No Tonsillectomy: Yes Other Surgery: Yes (CERVICAL FUSION, CERV. SX X4) Social History Alcohol Use: No Tobacco Use: No Substance Use: No Allergies-Medications (Allergen,Severity, Reaction): Coded Allergies: No Known Drug Allergies (Verified Allergy, Unknown, 11/05/17) *MDRO Multi-Drug Resistant Organism (Verified Adverse Reaction, Unknown, ) MRSA PCR negative - 12/29/15 & 01/01/16 VRE PCR negative - 01/01/16 & 01/03/16 Cleared per Infection Control 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/08/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) - 06/28/13 Reported Meds & Prescriptions Reported Meds & Active Scripts Active Potassium Chloride Microencaps 10 Meq Tab 10 Meq PO DAILY Lasix (Furosemide) 20 Mg Tab 20 Mg PO DAILY Norvasc (Amlodipine Besylate) 5 Mg Tab 5 Mg PO DAILY Reported Vitamin D2 (Ergocalciferol) 400 Unit Tab 50,000 Units PO WEEKLY Trazodone (Trazodone HCl) 50 Mg Tab 50 Mg PO HS Proair Respiclick Inh (Albuterol Sulfate) 90 Mcg/Act Aerp 2 Puff INH Q6H PRN Hyoscyamine (Hyoscyamine Sulfate) 0.125 Mg Tab 0.125 Mg PO TID PRN Clonazepam 0.5 Mg Tab 0.5 Mg PO BID Lyrica (Pregabalin) 75 Mg Cap 75 Mg PO BID Pantoprazole (Pantoprazole Sodium) 40 Mg Tab 40 Mg PO DAILY Levothyroxine (Levothyroxine Sodium) 100 Mcg Tab 100 Mcg PO DAILY Glimepiride 1 Mg Tab 1 Mg PO BID Take with breakfast or first main meal Ranitidine 75 (Ranitidine HCl) 75 Mg Tab 150 Mg PO DAILY Take 30 to 60 minutes before eating food or drinking beverages that cause heartburn. Simvastatin 20 Mg Tab 20 Mg PO DAILY Clopidogrel (Clopidogrel Bisulfate) 75 Mg Tab 75 Mg PO DAILY Carvedilol 6.25 Mg Tab 12.5 Mg PO BID Bisoprolol (Bisoprolol Fumarate) 5 Mg Tab 5 Mg PO BID Review of Systems Except as stated in HPI: all other systems reviewed are Neg Physical Exam Narrative GENERAL: 81yo F not in distress. SKIN: Focused skin assessment warm/dry. HEAD: Atraumatic. Normocephalic. EYES: Pupils equal and round. No scleral icterus. No injection or drainage. ENT: No nasal bleeding or discharge. Mucous membranes pink and moist. NECK: Trachea midline. No JVD. CARDIOVASCULAR: Regular rate and rhythm. No murmur appreciated. RESPIRATORY: No accessory muscle use. Clear to auscultation. Breath sounds equal bilaterally. GASTROINTESTINAL: Abdomen soft, non-tender, nondistended. No rebound tenderness or guarding. MUSCULOSKELETAL: No obvious deformities. No clubbing. No cyanosis. No edema. NEUROLOGICAL: Awake and alert. No obvious cranial nerve deficits. Motor grossly within normal limits. Normal speech. PSYCHIATRIC: Appropriate mood and affect; insight and judgment normal. Data Data Last Documented VS Vital Signs Date Time Temp Pulse Resp B/P (MAP) Pulse Ox O2 Delivery O2 Flow Rate FiO2 11/08/17 14:36 63 18 176/88 (117) 96 Room Air 11/08/17 13:29 1.00 11/08/17 13:18 98.1 Orders Orders Electrocardiogram (11/08/17 13:40) Basic Metabolic Panel (Bmp) (11/08/17 13:40) Complete Blood Count With Diff (11/08/17 13:40) Prothrombin Time / Inr (Pt) (11/08/17 13:40) Act Partial Throm Time (Ptt) (11/08/17 13:40) Troponin I (11/08/17 13:40) Chest, Single Ap (11/08/17 13:40) B-Type Natriuretic Peptide (11/08/17 13:41) Aspirin (Aspirin) (11/08/17 14:00) Nitroglycerin Sl (Nitrostat Sl) (11/08/17 14:00) Ceftriaxone Inj (Rocephin Inj) (11/08/17 15:45) Azithromycin (Zithromax) (11/08/17 15:45) Oxymetazoline 0.05% Sammy [place] (Afrin 0.0 (11/08/17 17:00) Admit Order (Ed Use Only) (11/08/17 16:50) Labs Laboratory Tests Test 11/08/17 14:10 White Blood Count 10.7 TH/MM3 Red Blood Count 4.96 MIL/MM3 Hemoglobin 13.2 GM/DL Hematocrit 41.3 % Mean Corpuscular Volume 83.4 FL Mean Corpuscular Hemoglobin 26.6 PG Mean Corpuscular Hemoglobin Concent 31.9 % Red Cell Distribution Width 14.2 % Platelet Count 286 TH/MM3 Mean Platelet Volume 8.7 FL Neutrophils (%) (Auto) 66.7 % Lymphocytes (%) (Auto) 22.8 % Monocytes (%) (Auto) 6.1 % Eosinophils (%) (Auto) 2.6 % Basophils (%) (Auto) 1.8 % Neutrophils # (Auto) 7.1 TH/MM3 Lymphocytes # (Auto) 2.4 TH/MM3 Monocytes # (Auto) 0.7 TH/MM3 Eosinophils # (Auto) 0.3 TH/MM3 Basophils # (Auto) 0.2 TH/MM3 CBC Comment DIFF FINAL Differential Comment Prothrombin Time 10.8 SEC Prothromb Time International Ratio 1.1 RATIO Activated Partial Thromboplast Time 25.1 SEC Blood Urea Nitrogen 15 MG/DL Creatinine 0.82 MG/DL Random Glucose 124 MG/DL Calcium Level 9.2 MG/DL Sodium Level 139 MEQ/L Potassium Level 3.7 MEQ/L Chloride Level 105 MEQ/L Carbon Dioxide Level 24.8 MEQ/L Anion Gap 9 MEQ/L Estimat Glomerular Filtration Rate 67 ML/MIN Troponin I LESS THAN 0.02 NG/ML B-Type Natriuretic Peptide 371 PG/ML MDM Medical Decision Making Medical Screen Exam Complete: Yes Emergency Medical Condition: Yes Interpretation(s) EKG: Poor baseline. Minor ST elevation in inferior lead but similar to prior EKG. ST depression I, aVL also similar to prior. Differential Diagnosis ACS vs. anxiety vs. Pneumonia Narrative Course 81yo F with HTN, DM, CAD here with atypical chest pain and sob today. Labs reviewed, no leukocytosis. H/H normal. Troponin negative. BNP mildly elevated at 371. CXR showed bilateral perihilar infiltrates. Pt is saturating at 96% on RA and speaking in complete sentences. Pt given ceftriaxone and azithromycin. I recommended admission for chest pain and bilateral pneumonia but pt is insistent on going home since she has 5 dogs and no one to take care of them. Pt initially was going to sign out AMA but her daughter arrived and after much discussion decided to stay. Daughter has power of cleaner carpet and upholstery as well. Discussed with Dr. Griffith and accepted to his service. Pt requesting nasal spray for decongestion so afrin ordered. Diagnosis Primary Impression: Chest pain Qualified Codes: R07.9 - Chest pain, unspecified Additional Impression: Pneumonia Qualified Codes: J18.9 - Pneumonia, unspecified organism Admitting Information Admitting Physician Requests: Observation Additional Instructions: Please follow up with your primary care physician tomorrow or return to the ED if you change your mind. You were given azithromycin and ceftriaxone today so please take the azithromycin prescription starting tomorrow. Tammie Gutierres DO Nov 08, 2017 13:49
[2017-11-08] MEDS ORDERED: ASPIRIN 325 MG TAB PO ONE (14:00)
[2017-11-08] MEDS ORDERED: NITROGLYCERIN 0.4 MG SL 25 TABS/BTL SL PRN (14:00)
[2017-11-08 14:16] LABS: AUTOMATED NEUTROPHIL # 7.1 TH/MM3 (1.8-7.7); BASOPHIL # 0.2 TH/MM3 (0-0.2); BASOPHIL % 1.8 % (0.0-2.0); EOSINOPHIL # 0.3 TH/MM3 (0-0.4); EOSINOPHIL % 2.6 % (0.0-4.0); HEMATOCRIT 41.3 % (35.0-46.0); HEMOGLOBIN 13.2 GM/DL (11.6-15.3); LYMPH % 22.8 % (9.0-44.0); LYMPHOCYTE # 2.4 TH/MM3 (1.0-4.8); MEAN CELL VOLUME 83.4 FL (80.0-100.0); MEAN CORPUSCULAR HEMOGLOBIN 26.6 PG (27.0-34.0); MEAN CORPUSCULAR HGB CONC 31.9 % (32.0-36.0); MEAN PLATELET VOLUME 8.7 FL (7.0-11.0); MONO % 6.1 % (0.0-8.0); MONOCYTE # 0.7 TH/MM3 (0-0.9); NEUT % 66.7 % (16.0-70.0); PLATELET COUNT 286 TH/MM3 (150-450); RED BLOOD COUNT 4.96 MIL/MM3 (4.00-5.30); RED CELL DISTRIBUTION WIDTH 14.2 % (11.6-17.2); WHITE BLOOD COUNT 10.7 TH/MM3 (4.0-11.0)
[2017-11-08 14:27] LABS: CHLORIDE 105 MEQ/L (98-107); SODIUM (NA) 139 MEQ/L (136-145)
--- NOTE | 2017-11-08 14:28 | RADRPT ---
EXAM DATE/TIME: 11/08/2017 13:57 [facility] COMPARISON: CHEST SINGLE AP, November 02, 2017, 13:08. INDICATIONS : Short of breath, cough MEDICAL HISTORY : None. SURGICAL HISTORY : None. ENCOUNTER: Initial ACUITY: 1 day PAIN SCORE: 0/10 LOCATION: Bilateral chest FINDINGS: Bilateral perihilar infiltrates are present. No significant lobar consolidation or pleural effusion. Heart size is grossly within normal limits. CONCLUSION: Bilateral perihilar infiltrates. Isiah Michele MD on November 08, 2017 at 14:25 Board Certified Radiologist. This report was verified electronically.
[2017-11-08 14:30] LABS: BICARBONATE 24.8 MEQ/L (21.0-32.0); BLOOD UREA NITROGEN 15 MG/DL (7-18); CALCIUM 9.2 MG/DL (8.5-10.1); GLUCOSE,RANDOM 124 MG/DL (74-106)
[2017-11-08 14:33] LABS: INTERNATIONAL NORMALIZED RATIO 1.1 RATIO; PROTHROMBIN TIME - PATIENT 10.8 SEC (9.8-11.6)
[2017-11-08 14:34] LABS: CREATININE 0.82 MG/DL (0.50-1.00); GLOMERULAR FILTRATION RATE 67 ML/MIN (>89)
[2017-11-08 14:38] LABS: TROPONIN I LESS THAN 0.02 NG/ML (0.02-0.05)
[2017-11-08] MEDS ORDERED: cefTRIAXone INJ 1,000 MG in SODIUM CHLORIDE 0.9% INJ 100 ML IV ONE (15:45)
[2017-11-08] MEDS ORDERED: AZITHROMYCIN 250 MG TAB PO ONE (15:45)
[2017-11-08] MEDS ORDERED: AZIT250T3 PO (15:47)
[2017-11-08] MEDS ORDERED: OXYMETAZOLINE HCL 0.05% 15 ML NASAL SPRAY NASAL ONE (17:00)
[2017-11-08] MEDS ORDERED: GLUCAGON 1 MG/ML VIAL OTHER PRN (17:45)
[2017-11-08] MEDS ORDERED: DEXTROSE 50% IN WATER 50 ML VIAL(D50) IV PUSH PRN (17:45)
[2017-11-08] MEDS: clonazePAM 0.5 MG TAB PO SCH (20:42)
[2017-11-08] MEDS: CARVEDILOL 12.5 MG TAB PO SCH (20:42)
[2017-11-08] MEDS: PREGABALIN 75 MG CAP PO SCH (20:42)
[2017-11-08] MEDS: INSULIN NovoLIN REGULAR SUPPLEMENTAL SCALE SQ SCH (20:46)
[2017-11-08] MEDS ORDERED: traZODone HCL 50 MG TAB PO SCH (21:00)
[2017-11-08] MEDS ORDERED: ZOLPIDEM TARTRATE 5 MG TAB PO ONE (23:15)
[2017-11-09] VITALS: BP 148/76; PULSE 66; RESP 17; TEMP 97.6; O2SAT 94
[2017-11-09 04:00] VITALS: BP 140/72; PULSE 67; RESP 18; TEMP 97.3; O2SAT 96
[2017-11-09 07:50] VITALS: BP 185/86; PULSE 68; RESP 20; TEMP 97.7; O2SAT 94
--- NOTE | 2017-11-09 07:55 | HHI.HP ---
[facility] Service [facility] Primary Care Physician Unknown Admission Diagnosis Chest pain, bilateral perihilar pneumonia Diagnoses: (1) Pneumonia (2) Chest pain Chief Complaint: Shortness of breath and chest pain Travel History International Travel<30 Days: No Contact w/Intl Traveler <30 Da: No Traveled to Known Affected Are: No History of Present Illness This is a pleasant 81-year-old female patient with a past medical history of congestive heart failure, hypertension, diabetes, CAD with cardiac stent placement who presented to the ED with complaints of shortness of breath. Patient states she has been in and out of the emergency department several times in the past few weeks for shortness of breath and cough. Patient states this time she did have an associated chest pressure in the right side of her chest, but associated the pain with her coughing, was transient for a few minutes and then resolved on its own. She states that she has had a nonproductive cough for several weeks. Denies any recent fever, chills, headache, abdominal pain, nausea, vomiting, diarrhea or dysuria. At the time of assessment patient denies any chest pain currently or overnight. Patient does see Dr. Lacy, cardiology, for management of her atrial fibrillation. Patient denies any known recent stress test. She did have a STEMI in 2016 with history of CAD and cardiac stent placement. Supposedly she had new onset atrial fibrillation in 2016 as well and is on Plavix with no reports of any other anticoagulation. Chest x-ray upon presentation showing bilateral perihilar infiltrates, ACS ruled out with serial EKGs and serial troponins. BNP mildly elevated at 371. Patient is comfortable on room air, oxygen saturations 96% on room air. Review of Systems Constitutional: DENIES: Fever, Chills Eyes: DENIES: Blurred vision, Diplopia Respiratory: COMPLAINS OF: Cough, Shortness of breath, DENIES: Sputum production Cardiovascular: COMPLAINS OF: Chest pain, DENIES: Palpitations, Lower Extremity Edema Gastrointestinal: DENIES: Abdominal pain, Black stools, Bloody stools, Constipation, Diarrhea, Nausea, Vomiting Musculoskeletal: DENIES: Joint pain Hematologic/lymphatic: DENIES: Bruising Psychiatric: COMPLAINS OF: Anxiety Except as stated in HPI: all other systems reviewed are Neg Past Family Social History Past Medical History History of CAD and cardiac stent placement, STEMI in 2016. History of atrial fibrillation Hypertension Arthritis Anxiety depression Hyperlipidemia Diabetes Fibromyalgia GERD Headaches Hypothyroidism Past Surgical History Appendectomy Cholecystectomy Cardiac stent placement Carotid artery stents. Bladder suspension Partial left knee placement Unspecified oral surgery. Cervical fusion x 4 Reported Medications Active Potassium Chloride Microencaps 10 Meq Tab 10 Meq PO DAILY Lasix (Furosemide) 20 Mg Tab 20 Mg PO DAILY Norvasc (Amlodipine Besylate) 5 Mg Tab 5 Mg PO DAILY Reported Vitamin D2 (Ergocalciferol) 400 Unit Tab 50,000 Units PO WEEKLY Trazodone (Trazodone HCl) 50 Mg Tab 50 Mg PO HS Proair Respiclick Inh (Albuterol Sulfate) 90 Mcg/Act Aerp 2 Puff INH Q6H PRN Hyoscyamine (Hyoscyamine Sulfate) 0.125 Mg Tab 0.125 Mg PO TID PRN Clonazepam 0.5 Mg Tab 0.5 Mg PO BID Lyrica (Pregabalin) 75 Mg Cap 75 Mg PO BID Pantoprazole (Pantoprazole Sodium) 40 Mg Tab 40 Mg PO DAILY Levothyroxine (Levothyroxine Sodium) 100 Mcg Tab 100 Mcg PO DAILY Glimepiride 1 Mg Tab 1 Mg PO BID Take with breakfast or first main meal Ranitidine 75 (Ranitidine HCl) 75 Mg Tab 150 Mg PO DAILY Take 30 to 60 minutes before eating food or drinking beverages that cause heartburn. Simvastatin 20 Mg Tab 20 Mg PO DAILY Clopidogrel (Clopidogrel Bisulfate) 75 Mg Tab 75 Mg PO DAILY Carvedilol 6.25 Mg Tab 12.5 Mg PO BID Bisoprolol (Bisoprolol Fumarate) 5 Mg Tab 5 Mg PO BID Allergies: Coded Allergies: No Known Drug Allergies (Verified Allergy, Unknown, 11/05/17) *MDRO Multi-Drug Resistant Organism (Verified Adverse Reaction, Unknown, ) MRSA PCR negative - 12/29/15 & 01/01/16 VRE PCR negative - 01/01/16 & 01/03/16 Cleared per Infection Control 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/08/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) - 06/28/13 Active Ordered Medications Current Medications Medications (Trade) Dose Ordered Sig/Daxa Route Start Time Stop Time Status Last Admin (Nitrostat Sl) 0.4 mg Q5M PRN SL 11/08/17 14:00 (Coreg) 12.5 mg BID PO 11/08/17 21:00 11/08/17 20:42 (KlonoPIN) 0.5 mg BID PO 11/08/17 21:00 11/08/17 20:42 (Synthroid) 100 mcg DAILY PO 11/09/17 09:00 (KCl) 10 meq DAILY PO 11/09/17 09:00 (Desyrel) 50 mg HS PO 11/08/17 21:00 11/08/17 20:42 (Drisdol) 50,000 units Q7D PO 11/09/17 09:00 (Pepcid) 20 mg DAILY PO 11/09/17 09:00 Ceftriaxone Sodium 1000 mg/ Sodium Chloride 100 ml @ 200 mls/hr Q24H IV 11/09/17 14:00 Azithromycin 500 mg/Sodium Chloride 250 ml @ 250 mls/hr Q24H IV 11/09/17 16:00 (Plavix) 75 mg DAILY PO 11/09/17 09:00 (Lyrica) 75 mg BID PO 11/08/17 21:00 11/08/17 20:42 (Pravachol) 40 mg DAILY PO 11/09/17 09:00 (D50w (Vial) Inj) 50 ml UNSCH PRN IV PUSH 11/08/17 17:45 (Glucagon Inj) 1 mg UNSCH PRN OTHER 11/08/17 17:45 (NovoLIN R SUPPLEMENTAL SCALE) 1 ACHS SLIDING SCALE SQ 11/08/17 21:00 Family History Reviewed and noncontributory. Social History Denies any tobacco use, alcohol use, or illicit drug use. Physical Exam Vital Signs Vital Signs Date Time Temp Pulse Resp B/P (MAP) Pulse Ox O2 Delivery O2 Flow Rate FiO2 11/09/17 04:00 97.3 67 18 140/72 (94) 96 11/09/17 00:00 97.6 66 17 148/76 (100) 94 11/08/17 20:10 99 21 11/08/17 20:01 69 11/08/17 20:00 97.8 68 16 180/78 (112) 95 11/08/17 18:23 83 18 158/88 (111) 95 11/08/17 17:46 11/08/17 17:35 59 16 184/80 (114) 98 Room Air 11/08/17 14:36 63 18 176/88 (117) 96 Room Air 11/08/17 13:29 19 95 Nasal Cannula 1.00 11/08/17 13:18 98.1 64 19 138/70 (92) 96 Physical Exam GENERAL: Well-developed, well-nourished patient in NAD. SKIN: Warm and dry. No rash. HEAD: Normocephalic. Atraumatic. EYES: Pupils equal and round. No scleral icterus. No injection or drainage. ENT: No nasal bleeding or discharge. Mucous membranes pink and moist. NECK: Supple. Trachea midline. CARDIOVASCULAR: Regular rate and rhythm. S1, S2 noted. No murmur appreciated. RESPIRATORY: No accessory muscle use. Diminished breath sounds posterior lower lobes. Breath sounds equal bilaterally. GASTROINTESTINAL: Abdomen soft, non-tender, nondistended. Normoactive bowel sounds x4. MUSCULOSKELETAL: No obvious deformities. Extremities without clubbing, cyanosis , or edema. NEUROLOGICAL: Awake and alert. No obvious cranial nerve deficits. Motor grossly within normal limits. 5/5 muscle strength in bilateral upper and lower extremities. Normal speech. PSYCHIATRIC: Appropriate mood and affect; insight and judgment normal. Laboratory Laboratory Tests Test 11/08/17 14:10 11/08/17 19:45 11/09/17 00:40 White Blood Count 10.7 Red Blood Count 4.96 Hemoglobin 13.2 Hematocrit 41.3 Mean Corpuscular Volume 83.4 Mean Corpuscular Hemoglobin 26.6 Mean Corpuscular Hemoglobin Concent 31.9 Red Cell Distribution Width 14.2 Platelet Count 286 Mean Platelet Volume 8.7 Neutrophils (%) (Auto) 66.7 Lymphocytes (%) (Auto) 22.8 Monocytes (%) (Auto) 6.1 Eosinophils (%) (Auto) 2.6 Basophils (%) (Auto) 1.8 Neutrophils # (Auto) 7.1 Lymphocytes # (Auto) 2.4 Monocytes # (Auto) 0.7 Eosinophils # (Auto) 0.3 Basophils # (Auto) 0.2 CBC Comment DIFF FINAL Differential Comment Prothrombin Time 10.8 Prothromb Time International Ratio 1.1 Activated Partial Thromboplast Time 25.1 Blood Urea Nitrogen 15 Creatinine 0.82 Random Glucose 124 Calcium Level 9.2 Sodium Level 139 Potassium Level 3.7 Chloride Level 105 Carbon Dioxide Level 24.8 Anion Gap 9 Estimat Glomerular Filtration Rate 67 Troponin I LESS THAN 0.02 LESS THAN 0.02 LESS THAN 0.02 B-Type Natriuretic Peptide 371 Result Diagram: 11/08/17 1410 11/08/17 1410 Imaging Last Impressions Chest X-Ray 11/08/17 1340 Signed Impressions: Service Date/Time: Wednesday, November 08, 2017 13:57 - CONCLUSION: Bilateral perihilar infiltrates. Isiah Michele MD Septic Shock Reassessment Septic shock perfusion: reassessment completed Caprini VTE Risk Assessment Caprini VTE Risk Assessment: Mod/High Risk (score >= 2) Caprini Risk Assessment Model Point Value = 1 Point Value = 2 Point Value = 3 Point Value = 5 Age 41-60 Minor surgery BMI > 25 kg/m2 Swollen legs Varicose veins or History of unexplained or recurrent spontaneous Oral contraceptives or hormone replacement Sepsis (< 1 month) Serious lung disease, including pneumonia (< 1 month) Abnormal pulmonary function Acute myocardial infarction Congestive heart failure (< 1 month) History of inflammatory bowel disease Medical patient at bed rest Age 61-74 Arthroscopic surgery Major open surgery (> 45 min) Laparoscopic surgery (> 45 min) Malignancy Confined to bed (> 72 hours) Immobilizing plaster cast Central venous access Age >= 75 History of VTE Family history of VTE Factor V Leiden Prothrombin [id number] Lupus anticoagulant Anticardiolipin antibodies Elevated serum homocysteine Heparin-induced thrombocytopenia Other congenital or acquired thrombophilia Stroke (< 1 month) Elective arthroplasty Hip, pelvis, or leg fracture Acute spinal cord injury (< 1 month) Prophylaxis Regimen Total Risk Factor Score Risk Level Prophylaxis Regimen 0-1 Low Early ambulation 2 Moderate Order ONE of the following: *Sequential Compression Device (SCD) *Heparin 5000 units SQ BID 3-4 Higher Order ONE of the following medications: *Heparin 5000 units SQ TID *Enoxaparin/Lovenox 40 mg SQ daily (WT < 150 kg, CrCl > 30 mL/min) *Enoxaparin/Lovenox 30 mg SQ daily (WT < 150 kg, CrCl > 10-29 mL/min) *Enoxaparin/Lovenox 30 mg SQ BID (WT < 150 kg, CrCl > 30 mL/min) AND/OR *Sequential Compression Device (SCD) 5 or more Highest Order ONE of the following medications: *Heparin 5000 units SQ TID (Preferred with Epidurals) *Enoxaparin/Lovenox 40 mg SQ daily (WT < 150 kg, CrCl > 30 mL/min) *Enoxaparin/Lovenox 30 mg SQ daily (WT < 150 kg, CrCl > 10-29 mL/min) *Enoxaparin/Lovenox 30 mg SQ BID (WT < 150 kg, CrCl > 30 mL/min) AND *Sequential Compression Device (SCD) Assessment and Plan Problem List: (1) Pneumonia ICD Code: J18.9 - Pneumonia, unspecified organism Status: Acute (2) Chest pain ICD Code: R07.9 - Chest pain, unspecified Status: Acute Assessment and Plan This is a pleasant 81-year-old female patient with a past medical history of congestive heart failure, hypertension, diabetes, CAD with cardiac stent placement who presented to the ED with complaints of shortness of breath and associated chest pressure. Community-acquired pneumonia - Chest x-ray reviewed showing bilateral perihilar infiltrates. - Patient was started on ceftriaxone and azithromycin IV. Will continue. Duo nebs as needed for shortness of breath. - Supplemental O2 as needed, keep saturations above 92%. Patient is comfortable on room air, 94% oxygen. - PT eval ordered, appreciate input recommendations will discharge with home health care. Patient has walker at home. History of atrial fibrillation History of CAD with cardiac stent placement History of hypertension History of CHF, unspecified kind - Continue home beta-lucia and Plavix. - Continue cardiac telemetry, monitor any arrhythmias. - Monitor blood pressure trends, continue home Norvasc. - We will continue home Lasix and potassium supplementation. Monitor intake and output. Dyslipidemia, chronic: Continue home statin. Hypothyroidism, chronic: Continue home levothyroxine. DVT prophylaxis: SCDs. Spoke with patient's history card clerk, Dr. Lacy, who was updated about patient' s hospitalization. This is likely not due to a cardiac issue, was last seen in the office a couple weeks ago. Patient advised to follow-up with PCP and return to ED if symptoms worsen or persist. Chest pain is not present at the time of discharge. ACS ruled out. Will not undergo a cardiac stress test, likely related to her bilateral perihilar infiltrates. Will continue on antibiotics post discharge and follow-up with PCP. Problem Qualifiers (1) Pneumonia: Qualified Codes: J18.9 - Pneumonia, unspecified organism (2) Chest pain: Qualified Codes: R07.9 - Chest pain, unspecified Keri Lopez Nov 09, 2017 07:55
[2017-11-09] MEDS: INSULIN NovoLIN REGULAR SUPPLEMENTAL SCALE SQ SCH ×2 (08:00→11:58)
[2017-11-09 08:20] VITALS: PULSE 67
[2017-11-09] MEDS: PREGABALIN 75 MG CAP PO SCH (08:46)
[2017-11-09] MEDS: CARVEDILOL 12.5 MG TAB PO SCH (08:46)
[2017-11-09] MEDS: clonazePAM 0.5 MG TAB PO SCH (08:46)
[2017-11-09] MEDS ORDERED: ERGOCALCIFEROL (VIT D2) 50,000 UNIT CAP PO SCH (09:00)
[2017-11-09] MEDS ORDERED: FAMOTIDINE 20 MG TAB PO SCH (09:00)
[2017-11-09] MEDS ORDERED: POTASSIUM CHLORIDE 10 MEQ CONTROLLED RELEASE TAB PO SCH (09:00)
[2017-11-09] MEDS ORDERED: LEVOTHYROXINE SODIUM 100 MCG TAB PO SCH (09:00)
[2017-11-09] MEDS ORDERED: PRAVASTATIN SOD 40 MG TAB PO SCH (09:00)
[2017-11-09] MEDS ORDERED: CLOPIDOGREL 75 MG TAB PO SCH (09:00)
--- NOTE | 2017-11-09 10:01 | EKG ---
Date Performed: 11/08/2017 Time Performed: 13:56:26 PTAGE: 81 years EKG: Normal Sinus rhythm VOLTAGE CRITERIA FOR LVH INFERIOR MYOCARDIAL INFARCTION ABNORMAL ECG PREVIOUS TRACING : 11/05/2017 13.45 Since the previous tracing, no significant change noted DOCTOR: Billy Spicer Interpretating Date/Time 11/09/2017 09:59:48
[2017-11-09 11:00] VITALS: BP 160/72; PULSE 61; RESP 20; TEMP 97.9; O2SAT 96
[2017-11-09] MEDS ORDERED: NYSTATIN 100,000 U/GM PWD 15 GM BTL TOPICAL SCH (11:00)
--- NOTE | 2017-11-09 11:40 | HHI.DCPOC ---
Discharge Care Plan Diagnosis: (1) Pneumonia Goals to Promote Your Health * To prevent worsening of your condition and complications * To maintain your health at the optimal level Directions to Meet Your Goals Take your medications as prescribed Follow your dietary instruction Follow activity as directed Keep your appointments as scheduled Take your immunizations and boosters as scheduled If your symptoms worsen call your PCP, if no PCP go to Urgent Care Center or Emergency Room Smoking is Dangerous to Your Health. Avoid second hand smoke Call the 24-hour hour crisis hotline for domestic abuse at Keri Lopez Nov 09, 2017 11:40
--- NOTE | 2017-11-09 11:41 | HHI.FF ---
Face to Face Verification Diagnosis: (1) Pneumonia Physical Therapy Order: Evaluate and Treat, Improve ambulation, Strength and gait training Home Health Nursing Order: Medical education Signs/symptoms of disease process Medication education-adverse effect Nursing assessment with vital signs I have seen patient Aranza Farrar on 11/09/17. My clinical findings support the need for the requested home health care services because: Patient has SOB Deconditioned w/ increased weakness Limited ability to care for self I certify that my clinical findings support that this patient is homebound because: Unsteady gait/balance Keri Lopez Nov 09, 2017 11:41
[2017-11-09] MEDS ORDERED: AMOX875T PO (11:46)
[2017-11-09] MEDS ORDERED: ALBUTEROL SULFATE 90 MCG/ACT HFA 18 GM INHALER INH PRN (12:00)
[2017-11-09] MEDS ORDERED: PANTOPRAZOLE SOD 40 MG DELAYED RELEASE TAB PO SCH (12:00)
[2017-11-09] MEDS ORDERED: amLODIPine BESYLATE 5 MG TAB PO SCH (12:00)
[2017-11-09] MEDS ORDERED: FUROSEMIDE 20 MG TAB PO SCH (12:00)
[2017-11-09] MEDS ORDERED: cefTRIAXone INJ 1,000 MG in SODIUM CHLORIDE 0.9% INJ 100 ML IV SCH (14:00)
[2017-11-09 14:08] VITALS: O2SAT 95
[2017-11-09] MEDS ORDERED: AZITHROMYCIN INJ 500 MG in SODIUM CHLOR 0.9% 250 ML INJ 250 ML IV SCH (16:00)
[2017-11-09] MEDS ORDERED: BISOPROLOL FUMARATE 5 MG TAB PO SCH (21:00)
== END 2017-11-09 15:11 | disposition home or self-care (01) ==
LOC: PHED 13:11 → PHEDA 16:51 → PH3B 17:57
PROVIDERS: ADMIT Hospitalist; ATTEND Hospitalist
DX: J18.9 Pneumonia, unspecified organism (principal); R07.9 Chest pain, unspecified; I25.10 Atherosclerotic heart disease of native coronary artery without angina pectoris; I11.0 Hypertensive heart disease with heart failure; I50.9 Heart failure, unspecified; E11.9 Type 2 diabetes mellitus without complications; I25.2 Old myocardial infarction; R94.31 Abnormal electrocardiogram [ECG] [EKG]; I48.91 Unspecified atrial fibrillation; E78.00 Pure hypercholesterolemia, unspecified; E03.9 Hypothyroidism, unspecified; K21.9 Gastro-esophageal reflux disease without esophagitis; M79.7 Fibromyalgia; F41.8 Other specified anxiety disorders; M19.90 Unspecified osteoarthritis, unspecified site; Z79.899 Other long term (current) drug therapy; Z95.5 Presence of coronary angioplasty implant and graft
CPT/HCPCS: 71045; 80048; 82948; 83880; 84484; 85025; 85610; 85730; 93005; 96365; 97161; 99285; G0378; G8987; G8988; J0696

== ENCOUNTER 2017-11-16 11:18 | Emergency (ER) | payer MEDICARE ==
[~2017-11-16] VITALS: Ht 160 cm; Wt 79.0 kg
[~2017-11-16 11:18] MED LIST changes: +AMOX875T PO; -ASPI-516 CHEW
[2017-11-16 11:24] VITALS: BP 162/82; PULSE 63; RESP 20; TEMP 97.7; O2SAT 97
[2017-11-16 11:30] VITALS: O2SAT 96
--- NOTE | 2017-11-16 11:48 | PD ---
HPI Chief Complaint: Respiratory Symptoms Time Seen by Provider: 11:31 Travel History International Travel<30 days: No Contact w/Intl Traveler<30days: No Traveled to known affect area: No History of Present Illness HPI Patient is an 81 year old female who comes in complaining of SOB. She has been here multiple times since the beginning of the year (4 this month) for the same complaint. She had a CTA done in September that showed no PE. She was admitted for chest pain and discharged. She denies any chest pain. She denies any cough or leg swelling. She does not smoke, but she has multiple animals at home. She has not had fever or chills. She does not wear oxygen at home. She does not feel wearing oxygen in the hospital improves her symptoms. Severity is mild. PFSH Past Medical History Hx Anticoagulant Therapy: Yes Arthritis: Yes Blood Disorders: No Anxiety: Yes Depression: Yes Heart Rhythm Problems: Yes (NEW AFIB 12/29/15) Cancer: No Cardiac Catheterization: Yes Cardiovascular Problems: Yes (HTN) High Cholesterol: Yes Chemotherapy: No Chest Pain: No Congestive Heart Failure: No Cerebrovascular Accident: No Coronary Artery Disease: Yes Diabetes: Yes Diminished Hearing: No Endocrine: Yes Fibromyalgia: Yes Gastrointestinal Disorders: Yes GERD: Yes Genitourinary: Yes Headaches: Yes Hepatitis: No Hiatal Hernia: No Hypertension: Yes Immune Disorder: No Implanted Vascular Access Dvce: Yes Kidney Stones: No Musculoskeletal: Yes (FIBROMYALGIA) Neurologic: Yes Psychiatric: Yes Reproductive: No Respiratory: No Immunizations Current: No Migraines: No Myocardial Infarction: Yes (DECEMBER 2015) Renal Failure: No Seizures: No Thyroid Disease: Yes (HYPOTHYROID) Ulcer: No Menopausal: Yes : 5 Para: 4 Miscarriage: 1 Past Surgical History Abdominal Surgery: Yes (APPY, CHOLECYSTECTOMY) AICD: No Appendectomy: Yes Arteriovenous Shunt: Yes Body Medical Devices: CORONARY ARTERY STENTS AND CAROTID ARTERY STENTS Cardiac Surgery: No Cholecystectomy: Yes Coronary Stent: Yes (1993) Ear Surgery: No Endocrine Surgery: No Eye Surgery: No Genitourinary Surgery: Yes (BLADDER SUSPENSION, INTERSTIM. INS.(MEDTRONIC)) Gynecologic Surgery: Yes (BLADDER SURGERIES, PT HAS PESSARY) Hysterectomy: Yes Insulin Pump: No Joint Replacement: Yes (LEFT KNEE, PARTIAL) Oral Surgery: Yes (T & A) Pacemaker: No Thoracic Surgery: No Tonsillectomy: Yes Other Surgery: Yes (CERVICAL FUSION, CERV. SX X4) Social History Alcohol Use: No Tobacco Use: No Substance Use: No Allergies-Medications (Allergen,Severity, Reaction): Coded Allergies: No Known Allergies (Unverified , 11/16/17) Reported Meds & Prescriptions Reported Meds & Active Scripts Active Potassium Chloride Microencaps 10 Meq Tab 10 Meq PO DAILY Lasix (Furosemide) 20 Mg Tab 20 Mg PO DAILY Norvasc (Amlodipine Besylate) 5 Mg Tab 5 Mg PO DAILY Reported Gabapentin 100 Mg Cap 100 Mg PO TID Vitamin D2 (Ergocalciferol) 400 Unit Tab 50,000 Units PO WEEKLY Trazodone (Trazodone HCl) 50 Mg Tab 50 Mg PO HS Proair Respiclick Inh (Albuterol Sulfate) 90 Mcg/Act Aerp 2 Puff INH Q6H PRN Hyoscyamine (Hyoscyamine Sulfate) 0.125 Mg Tab 0.125 Mg PO TID PRN Clonazepam 0.5 Mg Tab 0.5 Mg PO BID Lyrica (Pregabalin) 75 Mg Cap 75 Mg PO BID Pantoprazole (Pantoprazole Sodium) 40 Mg Tab 40 Mg PO DAILY Levothyroxine (Levothyroxine Sodium) 100 Mcg Tab 100 Mcg PO DAILY Glimepiride 1 Mg Tab 1 Mg PO BID Take with breakfast or first main meal Ranitidine 75 (Ranitidine HCl) 75 Mg Tab 150 Mg PO DAILY Take 30 to 60 minutes before eating food or drinking beverages that cause heartburn. Simvastatin 20 Mg Tab 20 Mg PO DAILY Clopidogrel (Clopidogrel Bisulfate) 75 Mg Tab 75 Mg PO DAILY Carvedilol 6.25 Mg Tab 12.5 Mg PO BID Bisoprolol (Bisoprolol Fumarate) 5 Mg Tab 5 Mg PO BID Review of Systems Except as stated in HPI: all other systems reviewed are Neg General / Constitutional: No: Fever, Chills HENT: No: Headaches, Lightheadedness Cardiovascular: No: Chest Pain or Discomfort Respiratory: Positive: Shortness of Breath Gastrointestinal: No: Nausea, Vomiting Musculoskeletal: No: Myalgias, Edema Skin: No Rash, No Change in Pigmentation Neurologic: No: Weakness, Dizziness Physical Exam Narrative GENERAL: Awake and alert, in no acute distress. Speaking in full sentences. SKIN: Focused skin assessment warm/dry. HEAD: Atraumatic. Normocephalic. EYES: Pupils equal and round. No scleral icterus. No injection or drainage. ENT: Mucous membranes pink and moist. NECK: Trachea midline. No JVD. CARDIOVASCULAR: Regular rate and rhythm. No murmur appreciated. RESPIRATORY: No accessory muscle use. Clear to auscultation. Breath sounds equal bilaterally. GASTROINTESTINAL: Abdomen soft, non-tender, nondistended. MUSCULOSKELETAL: No obvious deformities. No clubbing. No cyanosis. No edema. NEUROLOGICAL: Awake and alert. No obvious cranial nerve deficits. Motor grossly within normal limits. Normal speech. PSYCHIATRIC: Appropriate mood and affect; insight and judgment normal. Data Data Last Documented VS Vital Signs Date Time Temp Pulse Resp B/P (MAP) Pulse Ox O2 Delivery O2 Flow Rate FiO2 11/16/17 12:30 58 18 141/72 (95) 97 Nasal Cannula 2.00 11/16/17 11:24 97.7 Orders Orders Complete Blood Count With Diff (11/16/17 11:38) Comprehensive Metabolic Panel (11/16/17 11:38) B-Type Natriuretic Peptide (11/16/17 11:38) Troponin I (11/16/17 11:38) Iv Access Insert/Monitor (11/16/17 11:38) Ecg Monitoring (11/16/17 11:38) Oximetry (11/16/17 11:38) Oxygen Administration (11/16/17 11:38) Chest, Single Ap (11/16/17 11:38) Potassium Chloride (Kcl) (11/16/17 13:00) Labs Laboratory Tests Test 11/16/17 11:50 White Blood Count 10.3 TH/MM3 Red Blood Count 4.83 MIL/MM3 Hemoglobin 12.7 GM/DL Hematocrit 39.7 % Mean Corpuscular Volume 82.2 FL Mean Corpuscular Hemoglobin 26.3 PG Mean Corpuscular Hemoglobin Concent 31.9 % Red Cell Distribution Width 14.3 % Platelet Count 240 TH/MM3 Mean Platelet Volume 8.8 FL Neutrophils (%) (Auto) 67.1 % Lymphocytes (%) (Auto) 22.5 % Monocytes (%) (Auto) 7.8 % Eosinophils (%) (Auto) 1.8 % Basophils (%) (Auto) 0.8 % Neutrophils # (Auto) 6.9 TH/MM3 Lymphocytes # (Auto) 2.3 TH/MM3 Monocytes # (Auto) 0.8 TH/MM3 Eosinophils # (Auto) 0.2 TH/MM3 Basophils # (Auto) 0.1 TH/MM3 CBC Comment DIFF FINAL Differential Comment Blood Urea Nitrogen 21 MG/DL Creatinine 0.92 MG/DL Random Glucose 175 MG/DL Total Protein 6.8 GM/DL Albumin 3.0 GM/DL Calcium Level 9.0 MG/DL Alkaline Phosphatase 81 U/L Aspartate Amino Transf (AST/SGOT) 15 U/L Alanine Aminotransferase (ALT/SGPT) 17 U/L Total Bilirubin 0.3 MG/DL Sodium Level 138 MEQ/L Potassium Level 3.3 MEQ/L Chloride Level 103 MEQ/L Carbon Dioxide Level 27.6 MEQ/L Anion Gap 7 MEQ/L Estimat Glomerular Filtration Rate 58 ML/MIN Troponin I LESS THAN 0.02 NG/ML B-Type Natriuretic Peptide 120 PG/ML MDM Medical Decision Making Medical Screen Exam Complete: Yes Emergency Medical Condition: Yes Medical Record Reviewed: Yes Differential Diagnosis CHF exacerbation vs pneumonia vs bronchitis vs anxiety vs allergies Narrative Course Patient is an 81-year-old female comes in complaining of shortness of breath. She has been here multiple times for this, especially in the past 2 weeks. Each time her testing has not really revealed a cause of her shortness of breath. Her exam shows no acute abnormalities. Vitals are all within normal limits. IV established, labs sent. Labs show no acute abnormalities, other than a potassium of 3.3. This was replaced. Chest x-ray performed shows no acute abnormalities. Last 24 hours Impressions Chest X-Ray 11/16/17 1138 Signed Impressions: Service Date/Time: Thursday, November 16, 2017 12:20 - CONCLUSION: Bibasilar atelectasis. Rigoberto Gar MD Patient advised to try taking an [id number] allergy medication as she has multiple animals and this may be triggering her shortness of breath. Advised follow-up with her doctors. Advised return anytime for any worsening symptoms. Diagnosis Primary Impression: Shortness of breath Patient Instructions: General Instructions, Shortness of Breath (ED) Additional Instructions: Try taking [id number] Claritin, see if this helps with her shortness of breath. Follow-up with your doctors. Return to the ED as needed for any worsening symptoms. Disposition: 01 DISCHARGE HOME Condition: Stable Keri Sinclair MD Nov 16, 2017 11:48
[2017-11-16 12:12] LABS: AUTOMATED NEUTROPHIL # 6.9 TH/MM3 (1.8-7.7); BASOPHIL # 0.1 TH/MM3 (0-0.2); BASOPHIL % 0.8 % (0.0-2.0); CHLORIDE 103 MEQ/L (98-107); EOSINOPHIL # 0.2 TH/MM3 (0-0.4); EOSINOPHIL % 1.8 % (0.0-4.0); HEMATOCRIT 39.7 % (35.0-46.0); HEMOGLOBIN 12.7 GM/DL (11.6-15.3); LYMPH % 22.5 % (9.0-44.0); LYMPHOCYTE # 2.3 TH/MM3 (1.0-4.8); MEAN CELL VOLUME 82.2 FL (80.0-100.0); MEAN CORPUSCULAR HEMOGLOBIN 26.3 PG (27.0-34.0); MEAN CORPUSCULAR HGB CONC 31.9 % (32.0-36.0); MEAN PLATELET VOLUME 8.8 FL (7.0-11.0); MONO % 7.8 % (0.0-8.0); MONOCYTE # 0.8 TH/MM3 (0-0.9); NEUT % 67.1 % (16.0-70.0); PLATELET COUNT 240 TH/MM3 (150-450); RED BLOOD COUNT 4.83 MIL/MM3 (4.00-5.30); RED CELL DISTRIBUTION WIDTH 14.3 % (11.6-17.2); SODIUM (NA) 138 MEQ/L (136-145); WHITE BLOOD COUNT 10.3 TH/MM3 (4.0-11.0)
[2017-11-16 12:15] LABS: BICARBONATE 27.6 MEQ/L (21.0-32.0); BLOOD UREA NITROGEN 21 MG/DL (7-18); GLUCOSE,RANDOM 175 MG/DL (74-106)
[2017-11-16 12:18] LABS: ALT (GPT) 17 U/L (10-53); AST (GOT) 15 U/L (15-37); CREATININE 0.92 MG/DL (0.50-1.00); GLOMERULAR FILTRATION RATE 58 ML/MIN (>89)
[2017-11-16 12:20] LABS: TOTAL BILIRUBIN ADULT 0.3 MG/DL (0.2-1.0); TOTAL PROTEIN 6.8 GM/DL (6.4-8.2)
[2017-11-16 12:21] LABS: ALKALINE PHOSPHATASE 81 U/L (45-117)
[2017-11-16 12:23] LABS: TROPONIN I LESS THAN 0.02 NG/ML (0.02-0.05)
[2017-11-16 12:30] VITALS: BP 141/72; PULSE 58; RESP 18; O2SAT 97
[2017-11-16] MEDS ORDERED: PLAV75TA29 PO (12:40)
[2017-11-16] MEDS ORDERED: GABA100C4 PO (12:41)
--- NOTE | 2017-11-16 12:48 | RADRPT ---
EXAM DATE/TIME: 11/16/2017 12:20 [facility] COMPARISON: CHEST SINGLE AP, November 08, 2017, 13:57. INDICATIONS : Short of breath MEDICAL HISTORY : Hypertension. Myocardial infarction. Gastroesophageal reflux disease. Cerebrovascular disease.D iabetes. SURGICAL HISTORY : Hysterectomy. Fusion, cervical. Coronary artery stent.Appendectomy.Cholecystectomy. AV shunt. ENCOUNTER: Initial ACUITY: 1 day PAIN SCORE: 0/10 LOCATION: Bilateral chest FINDINGS: A single view of the chest demonstrates diminished lung glands and bibasilar atelectasis. Heart elena l in size. Prominent degenerative changes within each shoulder. Osseous structures are intact. CONCLUSION: Bibasilar atelectasis. Rigoberto Gar MD on November 16, 2017 at 12:45 Board Certified Radiologist. This report was verified electronically.
[2017-11-16] MEDS ORDERED: POTASSIUM CHLORIDE 20 MEQ CONTROLLED RELEASE TAB PO ONE (13:00)
[2017-11-16 13:40] VITALS: BP 142/70
== END 2017-11-16 14:24 | disposition home or self-care (01) ==
LOC: PHED 11:18
DX: R06.02 Shortness of breath (principal); J98.11 Atelectasis; F41.9 Anxiety disorder, unspecified; I10 Essential (primary) hypertension; E11.9 Type 2 diabetes mellitus without complications; M79.7 Fibromyalgia; K21.9 Gastro-esophageal reflux disease without esophagitis; E78.00 Pure hypercholesterolemia, unspecified; I25.10 Atherosclerotic heart disease of native coronary artery without angina pectoris
CPT/HCPCS: 71045; 80053; 83880; 84484; 85025; 99284

== ENCOUNTER 2017-11-20 12:19 | Emergency (ER) | payer MEDICARE ==
[~2017-11-20 12:19] MED LIST changes: -AMOX875T PO; +GABA100C4 PO
[2017-11-20 12:27] VITALS: BP 142/72; PULSE 74; RESP 20; TEMP 97.6; O2SAT 98
[2017-11-20] MEDS ORDERED: SODIUM CHLORIDE 0.9% FLUSH 10 ML FLUSH IVF PRN (12:30)
[2017-11-20 13:00] VITALS: O2SAT 98
[2017-11-20 13:10] LABS: AUTOMATED NEUTROPHIL # 6.7 TH/MM3 (1.8-7.7); BASOPHIL # 0.1 TH/MM3 (0-0.2); BASOPHIL % 0.7 % (0.0-2.0); EOSINOPHIL # 0.2 TH/MM3 (0-0.4); EOSINOPHIL % 1.9 % (0.0-4.0); HEMATOCRIT 40.2 % (35.0-46.0); HEMOGLOBIN 13.3 GM/DL (11.6-15.3); LYMPH % 30.6 % (9.0-44.0); LYMPHOCYTE # 3.3 TH/MM3 (1.0-4.8); MEAN CELL VOLUME 82.1 FL (80.0-100.0); MEAN CORPUSCULAR HEMOGLOBIN 27.2 PG (27.0-34.0); MEAN CORPUSCULAR HGB CONC 33.1 % (32.0-36.0); MEAN PLATELET VOLUME 9.3 FL (7.0-11.0); MONO % 5.3 % (0.0-8.0); MONOCYTE # 0.6 TH/MM3 (0-0.9); NEUT % 61.5 % (16.0-70.0); PLATELET COUNT 281 TH/MM3 (150-450); RED BLOOD COUNT 4.89 MIL/MM3 (4.00-5.30); RED CELL DISTRIBUTION WIDTH 14.9 % (11.6-17.2); WHITE BLOOD COUNT 10.9 TH/MM3 (4.0-11.0)
--- NOTE | 2017-11-20 13:19 | PD ---
HPI Chief Complaint: Anxiety Time Seen by Provider: 12:23 Travel History International Travel<30 days: No Contact w/Intl Traveler<30days: No Traveled to known affect area: No History of Present Illness HPI Patient is a 81 year old female who comes in complaining of SOB. Patient has been here multiple times over the past few months for the same symptoms. I saw her Thursday for the same symptoms. She was admitted in early October and had a cardiac work-up. She had a CTA of her chest in late September to rule out PE. Patient lives alone and becomes very anxious and calls 9-1-1. She does have history of CHF. Today, she says she woke up and just felt like she could not breath. Nothing is new today. She complains of some pain to her lower abdomen. She has not eaten or taken her medications yet this morning. She denies any chest pain. She denies fever or chills. Severity is mild. PFSH Past Medical History Hx Anticoagulant Therapy: Yes Arthritis: Yes Blood Disorders: No Anxiety: Yes Depression: Yes Heart Rhythm Problems: Yes (NEW AFIB 12/29/15) Cancer: No Cardiac Catheterization: Yes Cardiovascular Problems: Yes (HTN) High Cholesterol: Yes Chemotherapy: No Chest Pain: No Congestive Heart Failure: No Cerebrovascular Accident: No Coronary Artery Disease: Yes Diabetes: Yes Patient Takes Glucophage: Yes Diminished Hearing: No Endocrine: Yes Fibromyalgia: Yes Gastrointestinal Disorders: Yes GERD: Yes Genitourinary: Yes Headaches: Yes Hepatitis: No Hiatal Hernia: No Hypertension: Yes Immune Disorder: No Implanted Vascular Access Dvce: Yes Kidney Stones: No Medical other: Yes (OPEN WOUNDS KAV[place]. LEGS, FALL RISK, FIBROMYALGIA) Musculoskeletal: Yes (FIBROMYALGIA) Neurologic: Yes Psychiatric: Yes Reproductive: No Respiratory: No Immunizations Current: No Migraines: No Myocardial Infarction: Yes (DECEMBER 2015) Renal Failure: No Seizures: No Thyroid Disease: Yes (HYPOTHYROID) Ulcer: No Menopausal: Yes : 5 Para: 4 Miscarriage: 1 Past Surgical History Abdominal Surgery: Yes (APPY, CHOLECYSTECTOMY) AICD: No Appendectomy: Yes Arteriovenous Shunt: Yes Body Medical Devices: CORONARY ARTERY STENTS AND CAROTID ARTERY STENTS Cardiac Surgery: No Cholecystectomy: Yes Coronary Stent: Yes (1993) Ear Surgery: No Endocrine Surgery: No Eye Surgery: No Genitourinary Surgery: Yes (BLADDER SUSPENSION, INTERSTIM. INS.(MEDTRONIC)) Gynecologic Surgery: Yes (BLADDER SURGERIES, PT HAS PESSARY) Hysterectomy: Yes Insulin Pump: No Joint Replacement: Yes (LEFT KNEE, PARTIAL) Neurologic Surgery: No Oral Surgery: Yes (T & A) Pacemaker: No Thoracic Surgery: No Tonsillectomy: Yes Other Surgery: Yes (CERVICAL FUSION, CERV. SX X4) Social History Alcohol Use: No Tobacco Use: No Substance Use: No Allergies-Medications (Allergen,Severity, Reaction): Coded Allergies: No Known Allergies (Unverified , 11/16/17) Reported Meds & Prescriptions Reported Meds & Active Scripts Active Potassium Chloride Microencaps 10 Meq Tab 10 Meq PO DAILY Lasix (Furosemide) 20 Mg Tab 20 Mg PO DAILY Norvasc (Amlodipine Besylate) 5 Mg Tab 5 Mg PO DAILY Reported Gabapentin 100 Mg Cap 100 Mg PO TID Vitamin D2 (Ergocalciferol) 400 Unit Tab 50,000 Units PO WEEKLY Trazodone (Trazodone HCl) 50 Mg Tab 50 Mg PO HS Proair Respiclick Inh (Albuterol Sulfate) 90 Mcg/Act Aerp 2 Puff INH Q6H PRN Hyoscyamine (Hyoscyamine Sulfate) 0.125 Mg Tab 0.125 Mg PO TID PRN Clonazepam 0.5 Mg Tab 0.5 Mg PO BID Lyrica (Pregabalin) 75 Mg Cap 75 Mg PO BID Pantoprazole (Pantoprazole Sodium) 40 Mg Tab 40 Mg PO DAILY Levothyroxine (Levothyroxine Sodium) 100 Mcg Tab 100 Mcg PO DAILY Glimepiride 1 Mg Tab 1 Mg PO BID Take with breakfast or first main meal Ranitidine 75 (Ranitidine HCl) 75 Mg Tab 150 Mg PO DAILY Take 30 to 60 minutes before eating food or drinking beverages that cause heartburn. Simvastatin 20 Mg Tab 20 Mg PO DAILY Clopidogrel (Clopidogrel Bisulfate) 75 Mg Tab 75 Mg PO DAILY Carvedilol 6.25 Mg Tab 12.5 Mg PO BID Bisoprolol (Bisoprolol Fumarate) 5 Mg Tab 5 Mg PO BID Review of Systems Except as stated in HPI: all other systems reviewed are Neg General / Constitutional: No: Fever, Chills HENT: No: Headaches, Lightheadedness Cardiovascular: No: Chest Pain or Discomfort Respiratory: No: Shortness of Breath Gastrointestinal: Positive: Abdominal Pain Genitourinary: No: Dysuria Skin: No Rash, No Change in Pigmentation Neurologic: No: Weakness, Dizziness Physical Exam Narrative GENERAL: Awake and alert, in no acute distress. SKIN: Focused skin assessment warm/dry. HEAD: Atraumatic. Normocephalic. EYES: Pupils equal and round. No scleral icterus. ENT: No nasal bleeding or discharge. Mucous membranes pink and moist. NECK: Trachea midline. No JVD. CARDIOVASCULAR: Regular rate and rhythm. No murmur appreciated. RESPIRATORY: No accessory muscle use. Clear to auscultation. Breath sounds equal bilaterally. GASTROINTESTINAL: Abdomen soft, non-tender, nondistended. MUSCULOSKELETAL: No obvious deformities. No clubbing. No cyanosis. No edema. NEUROLOGICAL: Awake and alert. No obvious cranial nerve deficits. Motor grossly within normal limits. Normal speech. PSYCHIATRIC: Anxious Data Data Last Documented VS Vital Signs Date Time Temp Pulse Resp B/P (MAP) Pulse Ox O2 Delivery O2 Flow Rate FiO2 11/20/17 13:27 20 11/20/17 13:08 98 Room Air 11/20/17 12:27 97.6 74 142/72 (95) Orders Orders Complete Blood Count With Diff (11/20/17 12:23) Comprehensive Metabolic Panel (11/20/17 12:23) B-Type Natriuretic Peptide (11/20/17 12:23) Act Partial Throm Time (Ptt) (11/20/17 12:23) Prothrombin Time / Inr (Pt) (11/20/17 12:23) Troponin I (11/20/17 12:23) Urinalysis - C+S If Indicated (11/20/17 12:23) Iv Access Insert/Monitor (11/20/17 12:23) Ecg Monitoring (11/20/17 12:23) Oximetry (11/20/17 12:23) Oxygen Administration (11/20/17 12:23) Chest, Single Ap (11/20/17 12:23) Sodium Chloride 0.9% Flush (Ns Flush) (11/20/17 12:30) Electrocardiogram (11/20/17 ) Labs Laboratory Tests Test 11/20/17 12:45 11/20/17 13:13 White Blood Count 10.9 TH/MM3 Red Blood Count 4.89 MIL/MM3 Hemoglobin 13.3 GM/DL Hematocrit 40.2 % Mean Corpuscular Volume 82.1 FL Mean Corpuscular Hemoglobin 27.2 PG Mean Corpuscular Hemoglobin Concent 33.1 % Red Cell Distribution Width 14.9 % Platelet Count 281 TH/MM3 Mean Platelet Volume 9.3 FL Neutrophils (%) (Auto) 61.5 % Lymphocytes (%) (Auto) 30.6 % Monocytes (%) (Auto) 5.3 % Eosinophils (%) (Auto) 1.9 % Basophils (%) (Auto) 0.7 % Neutrophils # (Auto) 6.7 TH/MM3 Lymphocytes # (Auto) 3.3 TH/MM3 Monocytes # (Auto) 0.6 TH/MM3 Eosinophils # (Auto) 0.2 TH/MM3 Basophils # (Auto) 0.1 TH/MM3 CBC Comment DIFF FINAL Differential Comment Prothrombin Time 10.7 SEC Prothromb Time International Ratio 1.1 RATIO Activated Partial Thromboplast Time 25.4 SEC Blood Urea Nitrogen 23 MG/DL Creatinine 0.92 MG/DL Random Glucose 158 MG/DL Total Protein 7.1 GM/DL Albumin 3.2 GM/DL Calcium Level 9.0 MG/DL Alkaline Phosphatase 85 U/L Aspartate Amino Transf (AST/SGOT) 20 U/L Alanine Aminotransferase (ALT/SGPT) 18 U/L Total Bilirubin 0.5 MG/DL Sodium Level 139 MEQ/L Potassium Level 3.4 MEQ/L Chloride Level 106 MEQ/L Carbon Dioxide Level 24.6 MEQ/L Anion Gap 8 MEQ/L Estimat Glomerular Filtration Rate 58 ML/MIN Troponin I LESS THAN 0.02 NG/ML B-Type Natriuretic Peptide 88 PG/ML Urine Collection Type CLEAN CATCH Urine Color YELLOW Urine Turbidity CLEAR Urine pH 6.0 Urine Specific [place] 1.020 Urine Protein NEG mg/dL Urine Glucose (UA) NEG mg/dL Urine Ketones NEG mg/dL Urine Occult Blood NEG Urine Nitrite NEG Urine Bilirubin NEG Urine Urobilinogen 0.2 MG/DL Urine Leukocyte Esterase NEG Urine RBC 0-3 /hpf Urine WBC 0-2 /hpf Urine Squamous Epithelial Cells 0-5 /hpf Microscopic Urinalysis Comment CULT NOT INDICATED Urine Collection Time 1313 MDM Medical Decision Making Medical Screen Exam Complete: Yes Emergency Medical Condition: Yes Medical Record Reviewed: Yes Interpretation(s) ECG shows normal sinus rhythm at a rate of 70, no ST elevation or depression Differential Diagnosis Pneumonia versus electrolyte abnormality versus CHF versus anxiety Narrative Course Patient is an 81-year-old female who comes in complaining of shortness of breath. She has been here multiple times for this. Exam shows no acute abnormalities. IV established, labs sent. Labs show no acute abnormalities. Chest x-ray shows no acute abnormalities. Last 24 hours Impressions Chest X-Ray 11/20/17 1223 Signed Impressions: Service Date/Time: Monday, November 20, 2017 13:03 - CONCLUSION: Normal examination. Mild basilar interstitial scarring left greater than right Etienne Nair MD Patient reports feeling better. She says she would like to go home. She will be discharged with her daughter. Diagnosis Primary Impression: Anxiety Additional Impression: SOB (shortness of breath) Patient Instructions: Anxiety (ED), General Instructions, Shortness of Breath ( ED) Additional Instructions: Follow-up with your doctors. Return to the ED as needed for any worsening symptoms. Disposition: 01 DISCHARGE HOME Condition: Stable Keri Sinclair MD Nov 20, 2017 13:19
[2017-11-20 13:21] LABS: BILIRUBIN, URINE NEG (NEG); BLOOD, URINE NEG (NEG); GLUCOSE,URINE NEG (NEG); KETONE, URINE NEG (NEG); NITRITE,URINE NEG (NEG); URINE COLOR YELLOW (YELLW/STRAW); URINE LEUKOCYTE ESTERASE NEG (NEG)
--- NOTE | 2017-11-20 13:23 | RADRPT ---
EXAM DATE/TIME: 11/20/2017 13:03 [facility] COMPARISON: CHEST SINGLE AP, November 16, 2017, 12:20. INDICATIONS : Short of breath MEDICAL HISTORY : Hypertension. Myocardial infarction. Gastroesophageal reflux disease. Cerebrovascular disease.Diabete s. SURGICAL HISTORY : Hysterectomy. Fusion, cervical. Coronary artery stent.Appendectomy.Cholecystectomy. AV shunt. ENCOUNTER: Initial ACUITY: 1 day PAIN SCORE: 0/10 LOCATION: Bilateral chest FINDINGS: A single view of the chest demonstrates the lungs to be symmetrically aerated without evidence of mas s, infiltrate or effusion. Mild basilar interstitial scarring bilaterally left more than right The c ardiomediastinal contours are unremarkable. Osseous structures are intact. CONCLUSION: Normal examination. Mild basilar interstitial scarring left greater than right Etienne Nair MD on November 20, 2017 at 13:20 Board Certified Radiologist. This report was verified electronically.
[2017-11-20 13:26] LABS: CHLORIDE 106 MEQ/L (98-107); SODIUM (NA) 139 MEQ/L (136-145)
[2017-11-20 13:27] LABS: INTERNATIONAL NORMALIZED RATIO 1.1 RATIO; PROTHROMBIN TIME - PATIENT 10.7 SEC (9.8-11.6)
[2017-11-20 13:29] LABS: ALBUMIN 3.2 GM/DL (3.4-5.0); BICARBONATE 24.6 MEQ/L (21.0-32.0); BLOOD UREA NITROGEN 23 MG/DL (7-18); GLUCOSE,RANDOM 158 MG/DL (74-106)
[2017-11-20 13:32] LABS: ALT (GPT) 18 U/L (10-53); AST (GOT) 20 U/L (15-37)
[2017-11-20 13:33] LABS: CREATININE 0.92 MG/DL (0.50-1.00); GLOMERULAR FILTRATION RATE 58 ML/MIN (>89)
[2017-11-20 13:34] LABS: TOTAL BILIRUBIN ADULT 0.5 MG/DL (0.2-1.0); TOTAL PROTEIN 7.1 GM/DL (6.4-8.2)
[2017-11-20 13:35] LABS: ALKALINE PHOSPHATASE 85 U/L (45-117)
[2017-11-20 13:37] LABS: TROPONIN I LESS THAN 0.02 NG/ML (0.02-0.05)
[2017-11-20 13:53] LABS: RBC, URINE 0-3 /hpf (0-3); SQUAMOUS EPITHELIAL CELL URINE 0-5 /hpf (0-5); WBC, URINE 0-2 /hpf (0-5)
--- NOTE | 2017-11-20 23:39 | EKG ---
Date Performed: 11/20/2017 Time Performed: 13:25:53 PTAGE: 81 years EKG: Sinus rhythm LEFT VENTRICULAR HYPERTROPHY AND ST-T CHANGE INFERIOR MYOCARDIAL INFARCTION ABNORMAL ECG PREVIOUS TRACING : 11/08/2017 13.56 Since the previous tracing, no significant change noted DOCTOR: Sacha Win Interpretating Date/Time 11/20/2017 23:37:51
== END 2017-11-20 14:47 | disposition home or self-care (01) ==
LOC: PHED 12:19
DX: F41.9 Anxiety disorder, unspecified (principal); R06.02 Shortness of breath; R94.31 Abnormal electrocardiogram [ECG] [EKG]; I11.0 Hypertensive heart disease with heart failure; I50.9 Heart failure, unspecified; I48.91 Unspecified atrial fibrillation; I25.10 Atherosclerotic heart disease of native coronary artery without angina pectoris; E11.9 Type 2 diabetes mellitus without complications; E03.9 Hypothyroidism, unspecified
CPT/HCPCS: 71045; 80053; 81001; 83880; 84484; 85025; 85610; 85730; 93005; 99285

== ENCOUNTER 2018-01-06 08:07 | Inpatient (IN) | payer MEDICARE ==
[~2018-01-06] VITALS: Ht 160 cm; Wt 76.5 kg
[2018-01-06 08:21] VITALS: BP 125/65; PULSE 90; RESP 18; TEMP 97.7; O2SAT 97
[2018-01-06 08:27] VITALS: BP 125/65; PULSE 88; RESP 16
[2018-01-06] MEDS ORDERED: SODIUM CHLORIDE 0.9% FLUSH 10 ML FLUSH IV FLUSH PRN (08:30)
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
[2018-01-06 08:40] LABS: AUTOMATED NEUTROPHIL # 7.6 TH/MM3 (1.8-7.7); BASOPHIL # 0.1 TH/MM3 (0-0.2); BASOPHIL % 0.7 % (0.0-2.0); EOSINOPHIL # 0.2 TH/MM3 (0-0.4); EOSINOPHIL % 1.7 % (0.0-4.0); HEMATOCRIT 42.6 % (35.0-46.0); LYMPH % 22.8 % (9.0-44.0); LYMPHOCYTE # 2.6 TH/MM3 (1.0-4.8); MEAN CELL VOLUME 80.9 FL (80.0-100.0); MEAN CORPUSCULAR HEMOGLOBIN 26.5 PG (27.0-34.0); MEAN CORPUSCULAR HGB CONC 32.8 % (32.0-36.0); MEAN PLATELET VOLUME 8.1 FL (7.0-11.0); MONO % 8.4 % (0.0-8.0); NEUT % 66.4 % (16.0-70.0); PLATELET COUNT 302 TH/MM3 (150-450); RED BLOOD COUNT 5.27 MIL/MM3 (4.00-5.30); RED CELL DISTRIBUTION WIDTH 16.4 % (11.6-17.2); WHITE BLOOD COUNT 11.4 TH/MM3 (4.0-11.0)
[2018-01-06 09:05] LABS: ALBUMIN 3.6 GM/DL (3.4-5.0); AST (GOT) 23 U/L (15-37); BICARBONATE 19.5 MEQ/L (21.0-32.0); BLOOD UREA NITROGEN 19 MG/DL (7-18); CALCIUM 9.4 MG/DL (8.5-10.1); CHLORIDE 105 MEQ/L (98-107); CREATININE 1.06 MG/DL (0.50-1.00); GLOMERULAR FILTRATION RATE 50 ML/MIN (>89); GLUCOSE,RANDOM 164 MG/DL (74-106); SODIUM (NA) 137 MEQ/L (136-145)
[2018-01-06 09:11] LABS: ALKALINE PHOSPHATASE 97 U/L (45-117); ALT (GPT) 21 U/L (10-53); TOTAL BILIRUBIN ADULT 0.5 MG/DL (0.2-1.0); TOTAL PROTEIN 7.7 GM/DL (6.4-8.2)
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
[2018-01-06] MEDS ORDERED: MAGNESIUM HYDROXIDE SUSP 30 ML CUP PO PRN (10:45)
[2018-01-06] MEDS ORDERED: ALUMINUM/MAGNESIUM/SIMETH 30 ML CUP PO PRN (10:45)
[2018-01-06] MEDS ORDERED: LORazepam 2 MG/ML VIAL IM PRN (10:45)
[2018-01-06] MEDS ORDERED: LORazepam 0.5 MG TAB PO PRN (10:45)
[2018-01-06] MEDS ORDERED: HYOSCYAMINE 0.125 MG TAB PO PRN (11:00)
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
[2018-01-06 11:21] VITALS: BP 130/62
[2018-01-06 11:23] LABS: BILIRUBIN, URINE NEG (NEG); BLOOD, URINE NEG (NEG); GLUCOSE,URINE NEG (NEG); KETONE, URINE NEG (NEG); NITRITE,URINE NEG (NEG); PH, URINE 5.5 (5.0-8.5); URINE COLOR YELLOW (YELLW/STRAW); URINE LEUKOCYTE ESTERASE NEG (NEG)
[2018-01-06] MEDS ORDERED: PROAIR RESPICLICK INH PRN (11:30)
[2018-01-06 12:27] VITALS: BP 150/86; PULSE 85; RESP 18; TEMP 98.3; O2SAT 95
[2018-01-06] MEDS: ACETAMINOPHEN 325 MG TAB PO PRN ×2 (13:30→20:19)
[2018-01-06 18:00] VITALS: BP 150/86; PULSE 85; RESP 18; TEMP 98.3; O2SAT 95
[2018-01-06] MEDS: GABAPENTIN 100 MG CAP PO SCH (18:00)
[2018-01-06] MEDS: CARVEDILOL 12.5 MG TAB PO SCH (20:17)
[2018-01-06] MEDS: PREGABALIN 75 MG CAP PO SCH (20:17)
[2018-01-06] MEDS: traZODone HCL 50 MG TAB PO SCH (20:19)
[2018-01-06] MEDS: clonazePAM 0.5 MG TAB PO SCH (20:20)
[2018-01-06 20:32] VITALS: BP 142/75; PULSE 85; RESP 16
[2018-01-06] MEDS ORDERED: BISOPROLOL 5 MG PO SCH (21:00)
[2018-01-07 06:03] VITALS: BP 138/61; PULSE 77; RESP 17; TEMP 97.7; O2SAT 95
[2018-01-07] MEDS: LEVOTHYROXINE SODIUM 100 MCG TAB PO SCH (06:32)
[2018-01-07 07:54] LABS: ALBUMIN 3.1 GM/DL (3.4-5.0); ALT (GPT) 17 U/L (10-53); AST (GOT) 23 U/L (15-37); BICARBONATE 22.1 MEQ/L (21.0-32.0); BLOOD UREA NITROGEN 24 MG/DL (7-18); CALCIUM 8.9 MG/DL (8.5-10.1); CHLORIDE 106 MEQ/L (98-107); CHOLESTEROL 122 MG/DL (120-200); CREATININE 1.02 MG/DL (0.50-1.00); GLOMERULAR FILTRATION RATE 52 ML/MIN (>89); GLUCOSE,RANDOM 110 MG/DL (74-106); SODIUM (NA) 139 MEQ/L (136-145)
[2018-01-07 08:03] LABS: ALKALINE PHOSPHATASE 83 U/L (45-117); CHOLESTEROL/ HDL RATIO 3.55 RATIO; HDL CHOLESTEROL 34.3 MG/DL (40.0-60.0); LDL CHOLESTEROL 47 MG/DL (0-99); TOTAL BILIRUBIN ADULT 0.4 MG/DL (0.2-1.0); TRIGLYCERIDES 204 MG/DL (42-150)
[2018-01-07] MEDS ORDERED: GLUCAGON 1 MG/ML VIAL OTHER PRN (08:30)
[2018-01-07] MEDS ORDERED: DEXTROSE 50% IN WATER 50 ML VIAL(D50) IV PUSH PRN (08:30)
[2018-01-07] MEDS: clonazePAM 0.5 MG TAB PO SCH ×2 (09:00→09:40)
[2018-01-07 09:34] LABS: AUTOMATED NEUTROPHIL # 5.9 TH/MM3 (1.8-7.7); BASOPHIL # 0.1 TH/MM3 (0-0.2); BASOPHIL % 0.7 % (0.0-2.0); EOSINOPHIL # 0.2 TH/MM3 (0-0.4); EOSINOPHIL % 1.9 % (0.0-4.0); HEMATOCRIT 40.7 % (35.0-46.0); HEMOGLOBIN 13.4 GM/DL (11.6-15.3); LYMPH % 26.5 % (9.0-44.0); LYMPHOCYTE # 2.5 TH/MM3 (1.0-4.8); MEAN CELL VOLUME 81.3 FL (80.0-100.0); MEAN CORPUSCULAR HEMOGLOBIN 26.7 PG (27.0-34.0); MEAN CORPUSCULAR HGB CONC 32.9 % (32.0-36.0); MEAN PLATELET VOLUME 8.2 FL (7.0-11.0); MONO % 8.2 % (0.0-8.0); MONOCYTE # 0.8 TH/MM3 (0-0.9); NEUT % 62.7 % (16.0-70.0); PLATELET COUNT 280 TH/MM3 (150-450); RED BLOOD COUNT 5.01 MIL/MM3 (4.00-5.30); RED CELL DISTRIBUTION WIDTH 16.7 % (11.6-17.2); WHITE BLOOD COUNT 9.4 TH/MM3 (4.0-11.0)
[2018-01-07] MEDS: CLOPIDOGREL 75 MG TAB PO SCH (09:40)
[2018-01-07] MEDS: PANTOPRAZOLE SOD 40 MG DELAYED RELEASE TAB PO SCH (09:40)
[2018-01-07] MEDS: CARVEDILOL 12.5 MG TAB PO SCH ×2 (09:40→20:30)
[2018-01-07] MEDS: POTASSIUM CHLORIDE 10 MEQ CONTROLLED RELEASE TAB PO SCH (09:40)
[2018-01-07] MEDS: PREGABALIN 75 MG CAP PO SCH ×2 (09:40→20:30)
[2018-01-07] MEDS: GABAPENTIN 100 MG CAP PO SCH (12:00)
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
--- NOTE | 2018-01-07 14:42 | RADRPT ---
EXAM DATE: 01/07/2018 2:22 PM EDT AGE/SEX: 82 years / Female INDICATIONS: Short of breath. CLINICAL DATA: This is the patient's initial encounter. Patient reports that signs and symptoms have been present for 1 day and indicates a pain score of Nonresponsive. MEDICAL/SURGICAL HISTORY: None. None. COMPARISON: [facility], CHEST SINGLE AP, 11/08/2017. . FINDINGS: The heart is normal in size. The exam demonstrates prominence of the right fabiana. This has been stable throughout multiple exams. The lungs are clear. The visualized bony structures demonstrate degenerative changes within the shoulders. CONCLUSION: No acute findings identified. Prominence of the right fabiana unchanged from previous exams. Electronically signed by: Dileep Cast MD 01/07/2018 2:41 PM EDT
[2018-01-07] MEDS ORDERED: diphenhydrAMINE HCL 50 MG CAP PO PRN (15:30)
[2018-01-07] MEDS ORDERED: hydrOXYzine HCL 50 MG TAB PO PRN (15:30)
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
[2018-01-07] MEDS: INSULIN ASPART SUPPLEMENTAL SCALE SQ SCH ×2 (17:00→20:28)
[2018-01-07 17:11] LABS: HEMOGLOBIN A1C 6.8 % (4.3-6.0)
[2018-01-07 17:40] VITALS: BP 149/67; PULSE 77; RESP 18; TEMP 98; O2SAT 95
--- NOTE | 2018-01-07 18:36 | EKG ---
Date Performed: 01/07/2018 Time Performed: 08:53:43 PTAGE: 82 years EKG: Sinus rhythm WITH OCCASIONAL VENTRICULAR PREMATURE COMPLEXES LOW QRS VOLTAGE IN PRECORDIAL LEADS INFERIOR MYOCARD IAL INFARCTION , OF INDETERMINATE AGE ANTEROSEPTAL MYOCARDIAL INFARCTION , PROBABLY OLD ABNORMAL ECG PREVIOUS TRACING : 11/20/2017 13.25 Since the previous tracing, no significant change noted DOCTOR: Shoshana Reynoso Interpretating Date/Time 01/07/2018 18:36:45
[2018-01-07] MEDS: ACETAMINOPHEN 325 MG TAB PO PRN (18:44)
[2018-01-07] MEDS: traZODone HCL 50 MG TAB PO SCH (20:30)
[2018-01-07 21:17] VITALS: BP 150/73; PULSE 85
[2018-01-08 05:41] VITALS: BP 140/62; PULSE 75; RESP 18; TEMP 98; O2SAT 93
[2018-01-08] MEDS: LEVOTHYROXINE SODIUM 100 MCG TAB PO SCH (06:13)
[2018-01-08] MEDS: ACETAMINOPHEN 325 MG TAB PO PRN ×2 (06:17→13:40)
[2018-01-08] MEDS: INSULIN ASPART SUPPLEMENTAL SCALE SQ SCH ×4 (08:00→19:55)
[2018-01-08 08:54] LABS: CALCIUM 8.8 MG/DL (8.5-10.1)
[2018-01-08] MEDS: CARVEDILOL 12.5 MG TAB PO SCH ×2 (09:00→19:54)
[2018-01-08] MEDS: CLOPIDOGREL 75 MG TAB PO SCH (09:01)
[2018-01-08] MEDS: PANTOPRAZOLE SOD 40 MG DELAYED RELEASE TAB PO SCH (09:01)
[2018-01-08] MEDS: PREGABALIN 75 MG CAP PO SCH ×2 (09:01→19:55)
[2018-01-08] MEDS: clonazePAM 0.5 MG TAB PO SCH ×2 (09:01→19:55)
[2018-01-08] MEDS: PRAVASTATIN SOD 40 MG TAB PO SCH (09:02)
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
[2018-01-08] MEDS: traZODone HCL 50 MG TAB PO SCH (19:54)
[2018-01-09] MEDS: BENZONATATE 100 MG CAP PO PRN ×3 (00:57→21:32)
[2018-01-09 05:07] VITALS: BP 118/68; PULSE 68; RESP 16; TEMP 97.6; O2SAT 95
[2018-01-09] MEDS: LEVOTHYROXINE SODIUM 100 MCG TAB PO SCH (05:38)
[2018-01-09] MEDS: INSULIN ASPART SUPPLEMENTAL SCALE SQ SCH ×4 (07:33→20:20)
[2018-01-09] MEDS: PRAVASTATIN SOD 40 MG TAB PO SCH (08:42)
[2018-01-09] MEDS: CLOPIDOGREL 75 MG TAB PO SCH (08:42)
[2018-01-09] MEDS: clonazePAM 0.5 MG TAB PO SCH ×2 (08:42→20:19)
[2018-01-09] MEDS: CARVEDILOL 12.5 MG TAB PO SCH ×2 (08:42→20:19)
[2018-01-09] MEDS: PANTOPRAZOLE SOD 40 MG DELAYED RELEASE TAB PO SCH (08:42)
[2018-01-09] MEDS: PREGABALIN 75 MG CAP PO SCH ×2 (08:43→20:20)
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
[2018-01-09] MEDS: ACETAMINOPHEN 325 MG TAB PO PRN (11:53)
--- NOTE | 2018-01-09 15:06 | HHI.PYPN ---
Subjective Remarks Patient was seen and case discussed with nursing. Patient is compliant with her medications and behaving well on the unit. Patient continues to have poor insight into the situation that led to her admission. She is alert and oriented 2 Mental Status Examination Appearance: Appropriate Consciousness: Alert Orientation: Person, Place Motor Activity: Normal gait Speech: Unremarkable Language: Adequate Fund of Knowledge: Inadequate Attention and Concentration: Easily Distracted Memory: Impaired Mood: Angry Affect: Irritable Thought Process & Associations: Circumstantial Thought Content: Delusional Hallucination Type: None Delusion Type: None Suicidal Ideation: No Suicidal Plan: No Suicidal Intention: No Homicidal Ideation: Yes Homicidal Plan: No Homicidal Intention: No Insight: Poor Judgment: Poor Results Vitals/IOs Vital Signs Date Time Temp Pulse Resp B/P (MAP) Pulse Ox O2 Delivery O2 Flow Rate FiO2 01/09/18 05:07 97.6 68 16 118/68 (85) 95 01/06/18 08:27 Room Air Intake and Output 01/09/18 01/09/18 01/10/18 08:00 16:00 00:00 Intake Total 0 ml 360 ml Balance 0 ml 360 ml Assessment & Plan Problem List: (1) Alzheimer's dementia with behavioral disturbance ICD Codes: G30.9 - Alzheimer's disease, unspecified; F02.81 - Dementia in other diseases classified elsewhere with behavioral disturbance (2) Dementia in other diseases classified elsewhere with behavioral disturbance ICD Codes: F02.81 - Dementia in other diseases classified elsewhere with behavioral disturbance (3) ALZHEIMER'S DISEASE WITH LATE ONSET ICD Codes: G30.1 - ALZHEIMER'S DISEASE WITH LATE ONSET Assessment & Plan Continue current treatment plan Justification for Cont. Inpt. Patient would decompensate in a less restrictive setting Request HC Surrog/Guard Advoc?: No Immanuel Hook DO Jan 09, 2018 15:06
[2018-01-09 18:01] VITALS: BP 163/71; PULSE 79; RESP 16; TEMP 97.6; O2SAT 95
[2018-01-09 18:29] VITALS: BP 160/81; PULSE 85
[2018-01-09] MEDS: traZODone HCL 50 MG TAB PO SCH (20:19)
[2018-01-10] MEDS: ACETAMINOPHEN 325 MG TAB PO PRN ×2 (04:45→20:26)
[2018-01-10] MEDS: LEVOTHYROXINE SODIUM 100 MCG TAB PO SCH (04:46)
[2018-01-10 06:03] VITALS: BP 130/80; PULSE 77; RESP 18; TEMP 97.6; O2SAT 95
[2018-01-10] MEDS: INSULIN ASPART SUPPLEMENTAL SCALE SQ SCH ×4 (07:27→21:19)
[2018-01-10] MEDS: PRAVASTATIN SOD 40 MG TAB PO SCH (08:43)
[2018-01-10] MEDS: CARVEDILOL 12.5 MG TAB PO SCH ×2 (08:43→20:26)
[2018-01-10] MEDS: PANTOPRAZOLE SOD 40 MG DELAYED RELEASE TAB PO SCH (08:43)
[2018-01-10] MEDS: CLOPIDOGREL 75 MG TAB PO SCH (08:43)
[2018-01-10] MEDS: PREGABALIN 75 MG CAP PO SCH ×2 (08:43→20:26)
[2018-01-10] MEDS: clonazePAM 0.5 MG TAB PO SCH ×2 (08:43→20:25)
[2018-01-10] MEDS: BENZONATATE 100 MG CAP PO PRN (08:44)
--- NOTE | 2018-01-10 13:19 | HHI.PYPN ---
Subjective Remarks Patient was seen and case discussed with nursing. Patient is pleasant and cooperative with exam. She is concerned about her bilateral lower leg edema. Per nursing, she was on Lasix at home. She is social on the unit. Remains discharged focused. Patient says that her home situation has not been resolved and there are no more people at her house beside 4 cats. No aggressive behavior. Denies suicidal or homicidal ideation intent or plan Mental Status Examination Appearance: Appropriate Consciousness: Alert Orientation: Person, Place Motor Activity: Normal gait Speech: Unremarkable Language: Adequate Fund of Knowledge: Inadequate Attention and Concentration: Easily Distracted Memory: Impaired Mood: Angry Affect: Irritable Thought Process & Associations: Circumstantial Thought Content: Delusional Hallucination Type: None Delusion Type: None Suicidal Ideation: No Suicidal Plan: No Suicidal Intention: No Homicidal Ideation: No Homicidal Plan: No Homicidal Intention: No Insight: Poor Judgment: Poor Results Vitals/IOs Vital Signs Date Time Temp Pulse Resp B/P (MAP) Pulse Ox O2 Delivery O2 Flow Rate FiO2 01/10/18 06:03 97.6 77 18 130/80 (97) 95 01/06/18 08:27 Room Air Assessment & Plan Problem List: (1) Alzheimer's dementia with behavioral disturbance ICD Codes: G30.9 - Alzheimer's disease, unspecified; F02.81 - Dementia in other diseases classified elsewhere with behavioral disturbance (2) Dementia in other diseases classified elsewhere with behavioral disturbance ICD Codes: F02.81 - Dementia in other diseases classified elsewhere with behavioral disturbance (3) ALZHEIMER'S DISEASE WITH LATE ONSET ICD Codes: G30.1 - ALZHEIMER'S DISEASE WITH LATE ONSET Assessment & Plan Consult medicine for edema Justification for Cont. Inpt. Continue current treatment plan Request HC Surrog/Guard Advoc?: No Immanuel Hook DO Jan 10, 2018 13:19
[2018-01-10 14:10] VITALS: BP 169/71; PULSE 82
[2018-01-10] MEDS: FUROSEMIDE 20 MG TAB PO SCH (14:15)
[2018-01-10 17:00] VITALS: BP 143/69; PULSE 83; RESP 18; TEMP 97.4; O2SAT 95
[2018-01-10] MEDS: traZODone HCL 50 MG TAB PO SCH (20:25)
[2018-01-11 06:00] VITALS: BP 151/70; PULSE 77; RESP 18; TEMP 97.9; O2SAT 94
[2018-01-11] MEDS: LEVOTHYROXINE SODIUM 100 MCG TAB PO SCH (06:16)
[2018-01-11] MEDS: INSULIN ASPART SUPPLEMENTAL SCALE SQ SCH ×4 (07:20→20:38)
[2018-01-11] MEDS: PANTOPRAZOLE SOD 40 MG DELAYED RELEASE TAB PO SCH (08:11)
[2018-01-11] MEDS: PRAVASTATIN SOD 40 MG TAB PO SCH (08:11)
[2018-01-11] MEDS: clonazePAM 0.5 MG TAB PO SCH ×2 (08:11→20:37)
[2018-01-11] MEDS: PREGABALIN 75 MG CAP PO SCH ×2 (08:11→20:37)
[2018-01-11] MEDS: FUROSEMIDE 20 MG TAB PO SCH (08:11)
[2018-01-11] MEDS: CARVEDILOL 12.5 MG TAB PO SCH ×2 (08:12→20:37)
[2018-01-11] MEDS: CLOPIDOGREL 75 MG TAB PO SCH (08:12)
[2018-01-11] MEDS: BENZONATATE 100 MG CAP PO PRN ×2 (08:13→21:57)
[2018-01-11] MEDS: POTASSIUM CHLORIDE 10 MEQ CONTROLLED RELEASE TAB PO SCH (09:00)
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
[2018-01-11] MEDS: ACETAMINOPHEN 325 MG TAB PO PRN ×2 (13:08→21:57)
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
--- NOTE | 2018-01-11 16:51 | HHI.PYPN ---
Subjective Remarks Patient seen in day room with nurse Shena, patient chart review, patient complaint medications, discussed with nurse. Patient alert diffusely confused though appearing to be more oriented than she really is. We will have neurology consult with us. For now continue treatment Review of Systems Except as stated in HPI: all other systems reviewed are Neg Mental Status Examination Appearance: Appropriate Consciousness: Alert Orientation: Person, Place Motor Activity: Normal gait Speech: Unremarkable Language: Adequate Fund of Knowledge: Inadequate Attention and Concentration: Easily Distracted Memory: Impaired Mood: Angry Affect: Irritable Thought Process & Associations: Circumstantial Thought Content: Delusional Hallucination Type: None Delusion Type: None Suicidal Ideation: No Suicidal Plan: No Suicidal Intention: No Homicidal Ideation: No Homicidal Plan: No Homicidal Intention: No Insight: Poor Judgment: Poor Results Vitals/IOs Vital Signs Date Time Temp Pulse Resp B/P (MAP) Pulse Ox O2 Delivery O2 Flow Rate FiO2 01/11/18 06:00 97.9 77 18 151/70 (97) 94 Intake and Output 01/11/18 01/11/18 01/12/18 08:00 16:00 00:00 Intake Total 480 ml Balance 480 ml Assessment & Plan Problem List: (1) Alzheimer's dementia with behavioral disturbance ICD Codes: G30.9 - Alzheimer's disease, unspecified; F02.81 - Dementia in other diseases classified elsewhere with behavioral disturbance (2) Dementia in other diseases classified elsewhere with behavioral disturbance ICD Codes: F02.81 - Dementia in other diseases classified elsewhere with behavioral disturbance (3) ALZHEIMER'S DISEASE WITH LATE ONSET ICD Codes: G30.1 - ALZHEIMER'S DISEASE WITH LATE ONSET Assessment & Plan Estimated LOS: days patient continues diffusely confused and demented, complaint medications, will have neurology consult with us Justification for Cont. Inpt. At this time patient would decompensate a place to a lower level of care Discharge Planning To be determined Request HC Surrog/Guard Advoc?: Isiah Oden MD Jan 11, 2018 16:51
[2018-01-11 18:49] VITALS: BP 121/70; PULSE 86; RESP 18; TEMP 97.7; O2SAT 97
[2018-01-11] MEDS: traZODone HCL 50 MG TAB PO SCH (20:37)
[2018-01-12] MEDS: LEVOTHYROXINE SODIUM 100 MCG TAB PO SCH (04:46)
[2018-01-12 06:05] VITALS: BP 176/84; PULSE 78; RESP 16; TEMP 97.4; O2SAT 95
[2018-01-12 07:57] LABS: BICARBONATE 28.3 MEQ/L (21.0-32.0); CALCIUM 8.9 MG/DL (8.5-10.1); CREATININE 0.95 MG/DL (0.50-1.00)
[2018-01-12] MEDS: INSULIN ASPART SUPPLEMENTAL SCALE SQ SCH ×2 (08:00→12:00)
[2018-01-12] MEDS: POTASSIUM CHLORIDE 10 MEQ CONTROLLED RELEASE TAB PO SCH (09:00)
[2018-01-12] MEDS: CARVEDILOL 12.5 MG TAB PO SCH (09:00)
[2018-01-12] MEDS: PANTOPRAZOLE SOD 40 MG DELAYED RELEASE TAB PO SCH (09:00)
[2018-01-12] MEDS: PRAVASTATIN SOD 40 MG TAB PO SCH (09:00)
[2018-01-12] MEDS ORDERED: LISINOPRIL 5 MG TAB PO SCH (09:00)
[2018-01-12] MEDS: PREGABALIN 75 MG CAP PO SCH (09:00)
[2018-01-12] MEDS: FUROSEMIDE 20 MG TAB PO SCH (09:00)
[2018-01-12] MEDS: CLOPIDOGREL 75 MG TAB PO SCH (09:00)
[2018-01-12] MEDS: clonazePAM 0.5 MG TAB PO SCH (09:00)
[2018-01-12] MEDS: ACETAMINOPHEN 325 MG TAB PO PRN (10:08)
[2018-01-12] MEDS ORDERED: LISI-519 PO (11:20)
[2018-01-12] MEDS ORDERED: TRAZ50TA12 PO (11:20)
[2018-01-12] MEDS ORDERED: LEVO100T5 PO (11:20)
[2018-01-12] MEDS ORDERED: PANT40TA3 PO (11:20)
[2018-01-12] MEDS ORDERED: CLON0.5T PO (11:20)
[2018-01-12] MEDS ORDERED: LYRI75CA PO (11:20)
[2018-01-12] MEDS ORDERED: POTA10TA15 PO (11:20)
[2018-01-12] MEDS ORDERED: CARV6.252 PO (11:20)
[2018-01-12] MEDS ORDERED: PRAV40TA PO (11:20)
[2018-01-12] MEDS ORDERED: FURO1TAB62 PO (11:20)
[2018-01-12] MEDS ORDERED: GABA100C4 PO (11:20)
[2018-01-12] MEDS ORDERED: CLOP75TA PO (11:20)
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
== END 2018-01-12 16:45 | disposition home or self-care (01) | DRG 57 ==
LOC: NEPE 08:07 → NEDA 10:46 → H250 11:35
PROVIDERS: ADMIT Psychiatry & Neurology Psychiatry; ATTEND Psychiatry & Neurology Psychiatry
DX: G30.1 Alzheimer's disease with late onset (principal); F02.81 Dementia in other diseases classified elsewhere, unspecified severity, with behavioral disturbance; I48.91 Unspecified atrial fibrillation; E86.0 Dehydration; I10 Essential (primary) hypertension; E03.9 Hypothyroidism, unspecified; E07.9 Disorder of thyroid, unspecified; R45.850 Homicidal ideations; E11.9 Type 2 diabetes mellitus without complications; E78.5 Hyperlipidemia, unspecified; I25.10 Atherosclerotic heart disease of native coronary artery without angina pectoris; M79.7 Fibromyalgia; K21.9 Gastro-esophageal reflux disease without esophagitis; F41.8 Other specified anxiety disorders; R05 Cough; M19.90 Unspecified osteoarthritis, unspecified site; E78.00 Pure hypercholesterolemia, unspecified; N39.3 Stress incontinence (female) (male); R60.0 Localized edema; M25.571 Pain in right ankle and joints of right foot; M25.512 Pain in left shoulder; W19.XXXA Unspecified fall, initial encounter; I25.2 Old myocardial infarction; Z95.5 Presence of coronary angioplasty implant and graft; Z91.19 Patient's noncompliance with other medical treatment and regimen
CPT/HCPCS: 71045; 73030; 73630; 80048; 80053; 80061; 80307; 81001; 82306; 82607; 82948; 83036; 84443; 85025; 93005; J1815; Q0163

== ENCOUNTER 2018-02-20 16:19 | Inpatient (IN) ==
[2018-02-20] MEDS ORDERED: Sodium Chlor 0.9% Inj 500 ML IV.SIG ONE ×2 (16:39→17:43)
--- NOTE | 2018-02-20 16:47 | ED ---
HPI General Chief complaint: Recheck/Abnormal Lab/Rx Stated complaint: Labwork Showed High Potassium Time Seen by Provider: 02/20/18 16:29 Source: patient Mode of arrival: ambulatory Limitations: no limitations History of Present Illness HPI narrative: This patient is followed by an at home doctor. She had routine blood work earlier in the week which showed hyperkalemia. It has been rechecked twice and is still high. Potassium level is reportedly 7.7. She is on supplemental potassium secondary to Lasix. Onset (ago): week(s) (This week) Exacerbating factors: other (She is on supplemental potassium) Treatments prior to arrival: none Related Data Allergies Allergy/AdvReac Type Severity Reaction Status Date / Time No Known Allergies Allergy Verified 02/20/18 16:21 Review of Systems Except as stated in HPI: all other systems reviewed are negative [facility] Medical History Medical History H/O non-ST elevation myocardial infarction (NSTEMI) (Acute) Dementia (Acute) CAD (coronary artery disease) (Acute) Diabetes (Acute) High cholesterol (Acute) Hypertension (Acute) Hypothyroidism (Acute) Myocardial infarction (Acute) Surgical History Surgical History S/P appendectomy (Acute) S/P hysterectomy (Acute) S/P tonsillectomy and adenoidectomy (Acute) Social History Social History Second Hand Smoke Exposure: No Smoking Status: Never smoker How Often Do You Have a Drink Containing Alcohol: Never Recent Travel in [facility] within the Last 8 Weeks: No Recent Out of Country Travel within the Last 8 Weeks: No Exam Const General: cooperative, healthy appearing and comfortable Orientation: alert, awake and oriented x3 [facility] Head: normal to inspection, normocephalic and atraumatic Eyes General: appearance normal, both eyes and all related structures Conjunctivae: conjunctivae normal Sclera: sclerae normal EOM: EOM intact bilaterally Neck Neck: normal visual inspection and full ROM Chest Chest: normal inspection of the chest Resp Effort & Inspection: normal respiratory effort and able to speak in complete sentences Cardio Rate: regular rate Rhythm: regular rhythm GI Inspection: normal to inspection Back/Spine/Pelvis Cervical Spine: cervical ROM normal Thoracic/Lumbar Spine: thoraco-lumbar ROM normal Skin General: no rashes or lesions noted and turgor normal Neuro General: alert, awake, oriented x3, moves all extremities and CN's II-XI intact bilaterally Extrem General: normal to inspection and full ROM Psych Appearance: grossly normal Mental Status: mental status grossly normal Speech and Movement: speech and movement normal Mood: congruent mood Affect: normal affect Attitude: cooperative Thought Process: normal Thought Content: normal Judgment: judgment good Course Consultations Consultation #1: Dr. Taylor Time: 18:07 Initial Documented Vital Signs Temperature 97.7 F 02/20/18 16:22 Pulse Rate 75 02/20/18 16:22 Respiratory Rate 16 02/20/18 16:22 Blood Pressure 106/56 L 02/20/18 16:22 Pulse Oximetry 99 02/20/18 16:22 Last Documented Vital Signs Temperature 97.7 F 02/20/18 16:22 Pulse Rate 74 02/20/18 16:44 Respiratory Rate 16 02/20/18 16:44 Blood Pressure 86/58 L 02/20/18 17:25 Pulse Oximetry 98 02/20/18 16:44 Critical Care Time Critical Care Time: Yes Total Critical Care Time: 30 Attestation: Time to perform other separately billable procedures was not included in the critical care time. My time did not include minutes spent treating any other patients simultaneously or on activities that did not directly contribute to the patient's treatment. The services I provided to this patient were to treat and/or prevent clinically significant deterioration due to hyperkalemia I provided critical care services requiring my management, as noted below: Chart data review, documentation time, medication orders and management, vital sign assessments/reviewing monitor data, ordering and reviewing lab tests, ordering and interpreting/reviewing x-rays and diagnostic studies, care of the patient and discussion of the patient with the admitting physicians Medical Decision Making MDM Narrative Medical decision making narrative: This patient was sent and because of hyperkalemia 3 checks this week. She is on supplemental potassium because of Lasix. She has been placed on a desk monitor. An IV has been started. We will recheck her potassium here. The patient is being admitted to the intensive care unit for further treatment of her hyperkalemia. Differential Diagnosis Differential Diagnosis: Differential diagnosis includes lab error, hemolysis, hyperkalemia Medical Records Medical records reviewed: Yes I reviewed the patient's medical records. The patient was admitted for non-STEMI about a month ago. She had a cardiac catheterization done at that time which shows moderate triple-vessel disease. She also has congestive heart failure. She was started on Lasix and potassium at that time. Lab Data Lab results narrative: This patient is hyperkalemic. She also has acute on chronic renal failure. She is currently receiving IV fluids. She will be given calcium, bicarb, insulin/D50 and Kayexalate. She will need to be admitted to the hospital. Result diagrams: 02/20/18 16:50 Lab Results 02/20/18 Range/Units 16:50 Sodium 138 (136-145) meq/L Potassium 7.2 H* (3.5-5.1) meq/L Chloride 114 H (98-107) meq/L Carbon Dioxide 16.0 L (21.0-32.0) meq/L Anion Gap 8 (5-15) meq/L BUN 85 H (7-18) mg/dL Creatinine 2.00 H (0.50-1.00) mg/dL Estimated GFR 24 L (>89) mL/min Random Glucose 101 (74-106) mg/dL Calcium 9.3 (8.5-10.1) mg/dL ECG Data EKG Prior to Arrival: No Attestation: I personally reviewed and interpreted this ECG as follows: (EKG shows a sinus rhythm with a rate of 71. She has changes compatible with previous inferior and anterior PA but it is unchanged from previous. There is no acute ST segment elevation or depression.) Prior ECG tracings: available for review Discharge Plan Discharge Disposition Patient Disposition: 30 Still Patient Discharge Details Diagnosis: Acute hyperkalemia, Acute on chronic kidney failure Physicians Team ED Provider: Elizabeth Greer Primary Care Provider: UNKNOWN, Status ED Status: With Doctor
[2018-02-20 17:25] LABS: Calcium 9.3 mg/dL (8.5-10.1)
[2018-02-20 17:27] LABS: Potassium 7.2 meq/L (3.5-5.1)
[2018-02-20] MEDS ORDERED: Dextrose 50% in Water 50 ML Vial IV.PUSH ONE (17:41)
[2018-02-20] MEDS ORDERED: Sodium Polystyrene Sulfonate/Sorbitol Liq 15 GM/60 ML UDC PO ONE (17:41)
[2018-02-20] MEDS ORDERED: Calcium Chloride Inj 1 GM in Sodium Chlor 0.9% Inj 100 ML IV.SIG ONE (17:41)
[2018-02-20] MEDS ORDERED: Acetaminophen 325 MG Tablet PO PRN (18:35)
[2018-02-20] MEDS ORDERED: Bisacodyl 10 MG Supp RECTAL PRN (18:35)
[2018-02-20] MEDS ORDERED: Sod Chloride 0.9% Inj 1,000 ML IV.CONT SCH (18:45)
[2018-02-20] MEDS: SODIUM BICARBONATE IV.CONT SCH (19:15)
[2018-02-20] MEDS: SOD CHLORIDE 0.9% IV.CONT SCH (19:15)
[2018-02-20] MEDS: Temazepam 15 MG Capsule PO PRN (21:14)
[2018-02-20 21:17] LABS: Calcium 9.9 mg/dL (8.5-10.1); Carbon Dioxide 18.5 meq/L (21.0-32.0); Potassium 5.7 meq/L (3.5-5.1)
[2018-02-21] MEDS: SOD CHLORIDE 0.9% IV.CONT SCH (05:10)
[2018-02-21] MEDS: SODIUM BICARBONATE IV.CONT SCH (05:10)
[2018-02-21 08:44] LABS: Carbon Dioxide 19.4 meq/L (21.0-32.0)
[2018-02-21] MEDS ORDERED: Glimepiride 2 MG Tablet PO SCH (09:00)
[2018-02-21] MEDS: Carvedilol 12.5 MG Tablet PO SCH ×2 (09:03→20:12)
[2018-02-21] MEDS: clonazePAM 0.5 MG Tablet PO SCH ×2 (09:04→20:12)
[2018-02-21] MEDS: Lisinopril 5 MG Tablet PO SCH (09:04)
[2018-02-21] MEDS: traZODone 50 MG Tablet PO SCH (09:05)
--- NOTE | 2018-02-21 09:06 | P.HPIM ---
History of Present Illness Primary Care Physician: UNKNOWN Chief Complaint: Abnormal labs History of Present Illness: This patient is an 82-year-old female with dementia and a history of congestive heart failure and chronic renal insufficiency who comes to the hospital with abnormal labs checked as an outpatient. Apparently her potassium was 7.7. She was sent to the emergency room for further evaluation and her potassium here 7.2. Patient has been on lisinopril, Lasix, Aldactone 50 mg twice a day, supplemental potassium, Lyrica and gabapentin. She appears quite dehydrated. Patient was hypotensive 86/58 blood pressure in the emergency room with evidence of acute kidney injury. She has been admitted to the ICU for further correction of her electrolytes and hypotension. Patient notes no fevers or chills. She has not had any nausea or vomiting. Her EKG was reviewed by me and does not show any ischemic changes but has some mildly peaked T waves. She was acidotic also on arrival. Overnight she has received insulin with glucose and IV hydration. This morning she has an improvement however her potassium is now 5.7 Spoke with her daughter Chata Spencer who says she had decreased PO intake and was more confused for the last 2 days. Recently had an unclear change in Meds per PCP after her 01/22 admission for CAD. Family takes good care of her overall. - Diagnosis (1) Metabolic acidosis (2) Acute hyperkalemia (3) Acute on chronic kidney failure (4) Dementia (5) CAD (coronary artery disease) (6) CHF (congestive heart failure) Inpatient Certification: I certify that the inpatient services were ordered in accordance with Medicare regulations governing the order. This includes certification that hospital inpatient services are reasonable and necessary and in the case of services not specified as inpatient-only under 42 CFR 419.22(n), that they are appropriately provided as inpatient services in accordance to with the 2-midnight benchmark under 43 CFR 412.3(e) Estimated Total Length of Stay (Days): 3 Plans for Post Hospital Care: Not yet determined Review of Systems All other systems reviewed negative except as stated in HPI [facility] - History History Provided By: Patient - Medical History Medical History: Medical History (Last Updated 02/21/18 @ 09:02 by Estephania Taylor MD) H/O non-ST elevation myocardial infarction (NSTEMI) (Acute) Dementia (Acute) CAD (coronary artery disease) (Acute) CHF (congestive heart failure) Diabetes High cholesterol Hypertension Hypothyroidism Myocardial infarction - Surgical History Surgical History: Surgical History (Last Reviewed 02/21/18 @ 09:02 by Estephania Taylor MD) S/P appendectomy S/P hysterectomy S/P tonsillectomy and adenoidectomy - Tobacco History Second Hand Smoke Exposure: No Tobacco Use In Past 30 Days: No Smoking Status: Never smoker - Alcohol History How Often Do You Have a Drink Containing Alcohol: Never - Substance Use History Substance History: No History of Abuse - Travel History Recent Travel in the [place] Within the Last 8 Weeks: No Recent Travel Out of the Country Within the Last 8 Weeks: No - Immunization History Tetanus Immunization: Unsure Hx Influenza Vaccine This Season: Yes Medications and Allergies Active Medications: Active Medications Acetaminophen (Tylenol) 650 mg PO Q4H PRN PRN Reason: Temp > 100.4 Albuterol (Ventolin Hfa Inh) 2 puff INH Q4H PRN PRN Reason: Shortness Of Breath Bisacodyl (Dulcolax Supp) 10 mg RECTAL DAILY PRN PRN Reason: SEVERE CONSITIPATION Carvedilol (Coreg) 12.5 mg PO BID JANES Clonazepam (Klonopin) 0.5 mg PO BID JANES Clopidogrel Bisulfate (Plavix) 75 mg PO DAILY JANES Ergocalciferol (Vitamind2) 50,000 unit PO Q7D JANES Glimepiride (Amaryl) 2 mg PO BID JANES Hyoscyamine (Levsin) 0.125 mg PO TID [facility] Sodium Bicarbonate 50 meq/ (Sodium Chloride) 1,050 mls @ 100 mls/hr IV.CONT .[id number] JANES Last Admin: 02/21/18 05:10 Dose: 100 mls/hr Lactulose (Lactulose Liq) 30 ml PO DAILY PRN PRN Reason: SEVERE CONSITIPATION Levothyroxine Sodium (Synthroid) 100 mcg PO DAILY@0600 JANES Lisinopril (Prinivil) 5 mg PO DAILY JANES Pantoprazole Sodium (Protonix) 40 mg PO DAILY JANES Pravastatin Sodium (Pravachol) 40 mg PO DAILY JANES Temazepam (Restoril) 15 mg PO HS PRN PRN Reason: INSOMNIA Last Admin: 02/20/18 21:14 Dose: 15 mg Trazodone HCl (Desyrel) 50 mg PO DAILY [facility] Allergies Allergy/AdvReac Type Severity Reaction Status Date / Time No Known Allergies Allergy Verified 02/20/18 16:21 Home Medications Medication Instructions Recorded Confirmed Type acetaminophen 1,000 mg PO Q6H PRN 02/20/18 02/20/18 History albuterol sulfate 2 puff INHALATION Q6H PRN 02/20/18 02/20/18 History albuterol sulfate [ProAir HFA] 2 puff INHALATION Q4H PRN 02/20/18 02/20/18 History bisoprolol fumarate 5 mg PO BID 02/20/18 02/20/18 History carvedilol 12.5 mg PO BID 02/20/18 02/20/18 History clonazepam [Klonopin] 0.5 mg PO BID 02/20/18 02/20/18 History clopidogrel [Plavix] 75 mg PO DAILY 02/20/18 02/20/18 History ergocalciferol (vitamin D2) 50,000 unit PO QWEEK 02/20/18 02/20/18 History [Vitamin D2] furosemide [Lasix] 20 mg PO DAILY 02/20/18 02/20/18 History gabapentin 100 mg PO TID 02/20/18 02/20/18 History glimepiride 2 mg PO BID 02/20/18 02/20/18 History hyoscyamine sulfate 0.125 mg PO TID 02/20/18 02/20/18 History levothyroxine 100 mcg PO DAILY 02/20/18 02/20/18 History lisinopril 5 mg PO DAILY 02/20/18 02/20/18 History pantoprazole 40 mg PO BID 02/20/18 02/20/18 History potassium chloride 10 meq PO BID 02/20/18 02/20/18 History pravastatin 40 mg PO DAILY 02/20/18 02/20/18 History pregabalin [Lyrica] 75 mg PO BID 02/20/18 02/20/18 History sodium chloride 1 spray INTRANASAL Q4H 02/20/18 02/20/18 History spironolactone 50 mg PO BID 02/20/18 02/20/18 History trazodone 50 mg PO DAILY 02/20/18 02/20/18 History Exam Vital signs: Vital Signs 02/20/18 16:22 02/20/18 16:44 02/20/18 17:25 Temperature 97.7 F Pulse Rate 75 74 Respiratory Rate 16 16 Blood Pressure 106/56 L Blood Pressure [Left Arm] 86/58 L Blood Pressure [Right Arm] 87/54 L Pulse Oximetry 99 98 02/20/18 18:05 02/20/18 18:13 02/20/18 19:24 Temperature Pulse Rate 67 68 64 Respiratory Rate 18 18 Blood Pressure 90/51 L 111/61 Blood Pressure [Left Arm] Blood Pressure [Right Arm] Pulse Oximetry 94 L 96 02/20/18 20:20 02/20/18 20:23 02/20/18 20:24 Temperature 97.7 F Pulse Rate 64 66 Respiratory Rate 26 H 28 H Blood Pressure 61/47 L 102/41 L Blood Pressure [Left Arm] Blood Pressure [Right Arm] Pulse Oximetry 95 02/20/18 20:59 02/20/18 21:00 02/20/18 22:00 Temperature Pulse Rate 59 L 60 54 L Respiratory Rate 27 H 20 Blood Pressure Blood Pressure [Left Arm] Blood Pressure [Right Arm] Pulse Oximetry 02/20/18 23:00 02/20/18 23:49 02/21/18 00:00 Temperature 97.5 F L Pulse Rate 54 L 58 L 56 L Respiratory Rate 22 24 23 Blood Pressure 120/60 Blood Pressure [Left Arm] Blood Pressure [Right Arm] Pulse Oximetry 100 02/21/18 01:00 02/21/18 02:00 02/21/18 03:00 Temperature Pulse Rate 56 L 58 L 60 Respiratory Rate 24 25 H 24 Blood Pressure Blood Pressure [Left Arm] Blood Pressure [Right Arm] Pulse Oximetry 02/21/18 03:47 02/21/18 04:00 02/21/18 05:00 Temperature 97.6 F Pulse Rate 64 62 64 Respiratory Rate 25 H 23 26 H Blood Pressure 119/57 L Blood Pressure [Left Arm] Blood Pressure [Right Arm] Pulse Oximetry 02/21/18 06:00 02/21/18 07:00 02/21/18 07:47 Temperature 97.7 F Pulse Rate 68 72 66 Respiratory Rate 25 H 30 H 26 H Blood Pressure 122/69 Blood Pressure [Left Arm] Blood Pressure [Right Arm] Pulse Oximetry 02/21/18 08:00 Temperature Pulse Rate 64 Respiratory Rate 25 H Blood Pressure Blood Pressure [Left Arm] Blood Pressure [Right Arm] Pulse Oximetry Intake & Output 07/28/18 07/29/18 07/29/18 18:59 06:59 18:59 Intake Total 2640 / 2640 Output Total 300 / 300 Balance 2340 / 2340 Weight 69 kg 71 kg Intake: IV 2160 / 2160 Sodium Bicarbonate 8.4% Inj 50 1050 / 1050 MEQ In NS Inj 1,000 ML @ 100 mls/hr IV.CONT .[id number] JANES Rx# :[id number] Calcium Chloride Inj 1 GM In NS 110 / 110 Inj 100 ML @ 110 mls/hr IV.SIG ONCE ONE Rx#:[id number] NS Inj 500 ML @ Wide Open IV. 1000 / 1000 SIG BOLUS ONE Rx#:[id number] Oral 480 / 480 Output: Urine 300 / 300 Other: Date of Last Bowel Movement 02/21/18 02/21/18 # Bowel Movements 3 Weight On Admission 71 kg Narrative: GENERAL: Patient calm resting and without complaints SKIN: Warm and dry. No rashes or ecchymotic injuries EYES: Pupils equal and round. No scleral icterus. No injection or drainage. ENT: External ear exam normal. No acute nasal bleeding or discharge. Mucous membranes pink and moist. CARDIOVASCULAR: Regular rate and rhythm. No murmurs gallops or rubs appreciated RESPIRATORY: Good air flow and effort without accessory muscle use. Clear to auscultation. Breath sounds equal bilaterally. GASTROINTESTINAL: Abdomen soft, non-tender, nondistended. Hepatic and splenic margins not palpable. MUSCULOSKELETAL: Extremities without clubbing, cyanosis, or edema. No obvious deformities. NEUROLOGICAL: Awake and alert. No obvious cranial nerve deficits. Motor grossly within normal limits. Five out of 5 muscle strength in the arms and legs. Normal speech. Forgetful Results - Labs CBC & Chem 7: 02/21/18 08:02 Labs: BMP 02/20/18 02/20/18 02/21/18 16:50 20:30 08:02 Sodium 138 145 144 Potassium 7.2 H* 5.7 H D 5.0 Chloride 114 H 118 H 113 H Carbon Dioxide 16.0 L 18.5 L 19.4 L BUN 85 H 82 H 65 H Creatinine 2.00 H 1.90 H 1.30 H Calcium 9.3 9.9 9.0 D Cardiac Enzymes 02/20/18 Range/Units 20:30 Total Creatine Kinase 86 (26-192) U/L Caprini VTE Risk Assessment Caprini VTE Risk Assessment: Moderate/High Risk (score >= 2) Caprini Risk Assessment Model: Point Value = 1 Point Value = 2 Point Value = 3 Point Value = 5 Age 41-60 Minor surgery BMI > 25 kg/m2 Swollen legs Varicose veins or History of unexplained or recurrent spontaneous Oral contraceptives or hormone replacement Sepsis (< 1 month) Serious lung disease, including pneumonia (< 1 month) Abnormal pulmonary function Acute myocardial infarction Congestive heart failure (< 1 month) History of inflammatory bowel disease Medical patient at bed rest Age 61-74 Arthroscopic surgery Major open surgery (> 45 min) Laparoscopic surgery (> 45 min) Malignancy Confined to bed (> 72 hours) Immobilizing plaster cast Central venous access Age >= 75 History of VTE Family history of VTE Factor V Leiden Prothrombin [id number] Lupus anticoagulant Anticardiolipin antibodies Elevated serum homocysteine Heparin-induced thrombocytopenia Other congenital or acquired thrombophilia Stroke (< 1 month) Elective arthroplasty Hip, pelvis, or leg fracture Acute spinal cord injury (< 1 month) Prophylaxis Regimen: Total Risk Factor Score Risk Level Prophylaxis Regimen 0-1 Low Early ambulation 2 Moderate Order ONE of the following: *Sequential Compression Device (SCD) *Heparin 5000 units SQ BID 3-4 Higher Order ONE of the following medications: *Heparin 5000 units SQ TID *Enoxaparin/Lovenox 40 mg SQ daily (WT < 150 kg, CrCl > 30 mL/min) *Enoxaparin/Lovenox 30 mg SQ daily (WT < 150 kg, CrCl > 10-29 mL/min) *Enoxaparin/Lovenox 30 mg SQ BID (WT < 150 kg, CrCl > 30 mL/min) AND/OR *Sequential Compression Device (SCD) 5 or more Highest Order ONE of the following medications: *Heparin 5000 units SQ TID (Preferred with Epidurals) *Enoxaparin/Lovenox 40 mg SQ daily (WT < 150 kg, CrCl > 30 mL/min) *Enoxaparin/Lovenox 30 mg SQ daily (WT < 150 kg, CrCl > 10-29 mL/min) *Enoxaparin/Lovenox 30 mg SQ BID (WT < 150 kg, CrCl > 30 mL/min) AND *Sequential Compression Device (SCD) Assessment and Plan - Assessment (1) Metabolic acidosis Code(s): E87.2 - Acidosis Status: Acute Plan: Patient on bicarb drip overnight We will follow electrolytes for improvement and avoid over hydration given patient's history of congestive heart failure Likely this is due to dehydration pharmacy (2) Acute hyperkalemia Code(s): E87.5 - Hyperkalemia Status: Acute Plan: Improved after insulin Discontinue supplemental potassium and avoid polypharmacy as many of her medications (i.e. duplicate neuropathy therapy, lisinopril, Aldactone, supplemental potassium) will tend to increase her potassium (3) Acute on chronic kidney failure Code(s): N17.9 - Acute kidney failure, unspecified; N18.9 - Chronic kidney disease, unspecified Status: Acute Plan: Improved Likely secondary to over diuresis with Aldactone and Lasix Avoid volume overload (4) Dementia Code(s): F03.90 - Unspecified dementia without behavioral disturbance Status: Acute Plan: We will discuss with daughter Patient may need home health (5) CAD (coronary artery disease) Code(s): I25.10 - Atherosclerotic heart disease of [place] coronary artery without angina pectoris Status: Acute Plan: Cath 12/2017, not followed up with cardiology yet as family was not clear on the discharge plan and patient has dementia (6) CHF (congestive heart failure) Code(s): I50.9 - Heart failure, unspecified Status: Acute Plan: Known cardiomyopathy, no evidence of acute exacerbation at this time. Continue with Coreg, lisinopril, Aldactone, Lasix Follow-up with Dr. Stokes - Plan Discharge Planning: Likely discharge home 2 days with home health care family to consider [facility] detention H&P: Quality - VTE Deep Vein Thrombosis/Pulmonary Embolism Present on Admission: No (3) Acute on chronic kidney failure Qualifiers: Acute renal failure type: unspecified Chronic kidney disease stage: stage 3 ( moderate) Qualified Code(s): N17.9 - Acute kidney failure, unspecified; N18.3 - Chronic kidney disease, stage 3 (moderate)
--- NOTE | 2018-02-21 09:21 | P.DCO ---
- Diagnosis (1) Acute on chronic kidney failure - Physical Therapy Order: Evaluate and treat, Improve ambulation - Home Health Nursing Order: Medical education, Signs/symptoms of disease process, Diabetic education - Home Health Aide Order: To assist in: Bathing and personal care, nutter up and meal prep - Certification I have seen patient Trisha Farrar on 02/21/18. My clinical findings support the need for the requested home health care services because: Impaired cognition/judgement I certify that my clinical findings support that this patient is homebound because: Impaired cognitive ability/safety (1) Acute on chronic kidney failure Qualifiers: Acute renal failure type: unspecified Chronic kidney disease stage: stage 3 ( moderate) Qualified Code(s): N17.9 - Acute kidney failure, unspecified; N18.3 - Chronic kidney disease, stage 3 (moderate)
[2018-02-21] MEDS: Gabapentin 100 MG Capsule PO SCH ×2 (12:04→18:10)
[2018-02-21] MEDS: Levothyroxine 100 MCG Tablet PO SCH (12:04)
[2018-02-21] MEDS: guaiFENesin/Codeine Syrup 200 MG/20 MG 10 ML UDC PO PRN ×2 (14:42→21:30)
--- NOTE | 2018-02-21 16:43 | XR ---
EXAM DATE: 02/21/2018 4:41 PM EDT AGE/SEX: 82 years / Female INDICATIONS: Cough CLINICAL DATA: This is the patient's initial encounter. Patient reports that signs and symptoms have been present for 2 days and indicates a pain score of 0/10. MEDICAL/SURGICAL HISTORY: . Hypercholesterolemia. Hypothyroidism. Gastroesophageal reflux dise ase. Diabetic. Myocardial infarction. Fibromyalgia. CAD. CVA. A-fib. Arthritis. Fusion, cervical. Ton sillectomy. Cholecystectomy. . Cardiac cath w/ stent placement. Appendectomy. Hysterectomy. Left kn ee. COMPARISON: [facility], CHEST SINGLE AP, 01/20/2018. . FINDINGS: Lungs are under aerated. I do not see inflammatory infiltrate or congestive failure. There is no pneu mothorax or pleural effusion Significant degenerative changes are seen about both shoulders. CONCLUSION: Under aerated without infiltrate or failure. Electronically signed by: Alfie Cast MD 02/21/2018 4:42 PM EDT
[2018-02-21] MEDS ORDERED: Dextrose 50% in Water 50 ML Vial IV.PUSH PRN (17:41)
[2018-02-21] MEDS ORDERED: Dextrose 50% in Water Syringe 50 ML ONE (18:03)
[2018-02-21] MEDS ORDERED: Dextrose 5% in Water Inj 1,000 ML IV.CONT SCH (19:00)
[2018-02-21] MEDS: Temazepam 15 MG Capsule PO PRN (22:34)
[2018-02-21] MEDS ORDERED: Haloperidol Inj 5 MG/ML Ampul IV.PUSH ONE (22:38)
[2018-02-22 04:42] LABS: Hematocrit 31.9 % (35.0-46.0); Hemoglobin 10.3 gm/dL (11.6-15.3); Mean Corpuscular HGB Conc 32.4 % (32.0-36.0); Mean Corpuscular Hemoglobin 27.3 pg (27.0-34.0); Mean Corpuscular Volume 84.2 fL (80.0-100.0); Mean Platelet Volume 8.1 fL (7.0-11.0); Platelet Count 207 th/mm3 (150-450); Red Blood Count 3.78 mil/mm3 (4.00-5.30); Red Cell Distribution Width 16.9 % (11.6-17.2); White Blood Count 9.7 th/mm3 (4.0-11.0)
[2018-02-22 04:50] LABS: Calcium 8.4 mg/dL (8.5-10.1); Carbon Dioxide 21.6 meq/L (21.0-32.0)
[2018-02-22] MEDS: Levothyroxine 100 MCG Tablet PO SCH (04:59)
[2018-02-22 05:06] LABS: Bilirubin,Urine Negative (Negative); Clarity,Urine Cloudy (Clear); Color,Urine Yellow (Yellw/Straw); Glucose,Urine (UA) Negative (Negative); Leukocyte Esterase,Urine Large (Negative); Nitrite,Urine Negative (Negative); Specific Gravity,Urine Less/Equal 1.005 (1.002-1.035); Urobilinogen,Urine 0.2 mg/dL (Less than 2)
[2018-02-22 05:11] LABS: Bacteria,Urine Few /hpf; RBC,Urine 0-3 /hpf (0-3); Squamous Epithelial Cell,Urine 0-5 /hpf (0-5); WBC,Urine 51-189 /hpf (0-5)
[2018-02-22] MEDS: Carvedilol 12.5 MG Tablet PO SCH ×2 (08:49→20:42)
[2018-02-22] MEDS: traZODone 50 MG Tablet PO SCH (08:49)
[2018-02-22] MEDS: Gabapentin 100 MG Capsule PO SCH ×3 (08:49→18:19)
[2018-02-22] MEDS: Lisinopril 5 MG Tablet PO SCH (08:50)
[2018-02-22] MEDS: clonazePAM 0.5 MG Tablet PO SCH ×2 (08:50→20:42)
--- NOTE | 2018-02-22 09:21 | P.PNIM ---
Subjective Interval history: Patient seen and evaluated today in follow-up for acute kidney injury, hypoglycemia and severe hyperkalemia. Overall improved. Still confused today with a bit of a cough. No new events overnight. Patient did good on dextrose continuous infusion and no further hypoglycemia is noted Physical Exam Vital signs: Vital Signs 02/21/18 12:00 02/21/18 12:23 02/21/18 13:00 Temperature 98.8 F Pulse Rate 70 74 76 Respiratory Rate 32 H 40 H 40 H Blood Pressure 118/54 L 101/68 Pulse Oximetry 02/21/18 14:00 02/21/18 15:00 02/21/18 16:00 Temperature Pulse Rate 78 68 72 Respiratory Rate 37 H 28 H 31 H Blood Pressure Pulse Oximetry 02/21/18 16:28 02/21/18 16:34 02/21/18 17:00 Temperature Pulse Rate 66 87 66 Respiratory Rate 28 H 28 H Blood Pressure 119/67 Pulse Oximetry 02/21/18 18:00 02/21/18 18:29 02/21/18 18:31 Temperature 97.6 F Pulse Rate 70 76 Respiratory Rate Blood Pressure 137/70 Pulse Oximetry 02/21/18 19:22 02/21/18 20:00 02/22/18 00:00 Temperature 98.5 F 98.5 F Pulse Rate 78 80 79 Respiratory Rate 27 H 22 Blood Pressure 112/54 L 159/73 H Pulse Oximetry 95 02/22/18 03:48 Temperature 97.7 F Pulse Rate 79 Respiratory Rate 32 H Blood Pressure 114/70 Pulse Oximetry 95 Intake & Output 02/21/18 02/22/18 02/22/18 18:59 06:59 18:59 Intake Total 240 / 240 Output Total 500 / 500 725 / 725 Balance -500 / -500 -485 / -485 Weight 73.9 kg Intake: Oral 240 / 240 Output: Urine 500 / 500 725 / 725 Other: Date of Last Bowel Movement 02/21/18 # Bowel Movements 3 0 Narrative: GENERAL: Patient calm resting and without complaints SKIN: Warm and dry. No rashes or ecchymotic injuries EYES: Pupils equal and round. No scleral icterus. No injection or drainage. ENT: External ear exam normal. No acute nasal bleeding or discharge. Mucous membranes pink and moist. CARDIOVASCULAR: Regular rate and rhythm. No murmurs gallops or rubs appreciated RESPIRATORY: Good air flow and effort without accessory muscle use. Clear to auscultation. Breath sounds equal bilaterally. GASTROINTESTINAL: Abdomen soft, non-tender, nondistended. Hepatic and splenic margins not palpable. MUSCULOSKELETAL: Extremities without clubbing, cyanosis, or edema. No obvious deformities. NEUROLOGICAL: Awake and alert. No obvious cranial nerve deficits. Motor grossly within normal limits. Five out of 5 muscle strength in the arms and legs. Normal speech. Results - Labs CBC & Chem 7: 02/22/18 04:25 02/22/18 04:25 Laboratory Results - last 24 hr 02/21/18 02/21/18 02/21/18 11:45 16:56 17:37 WBC RBC Hgb Hct MCV MCH MCHC RDW Plt Count MPV Sodium Potassium Chloride Carbon Dioxide Anion Gap BUN Creatinine Estimated GFR POC Glucose 254 H 61 L 66 L Random Glucose Calcium Urine Color Urine Clarity Urine pH Ur Specific [place] Urine Protein Urine Glucose (UA) Urine Ketones Urine Occult Blood Urine Nitrate Urine Bilirubin Urine Urobilinogen Ur Leukocyte Esterase Urine RBC Urine WBC Urine WBC Clumps Ur Squamous Epith Cells Urine Bacteria Micro UA Comment Urine Culture Comments 02/21/18 02/21/18 02/21/18 17:50 18:00 18:32 WBC RBC Hgb Hct MCV MCH MCHC RDW Plt Count MPV Sodium Potassium Chloride Carbon Dioxide Anion Gap BUN Creatinine Estimated GFR POC Glucose 62 L 171 H Random Glucose 81 Calcium Urine Color Urine Clarity Urine pH Ur Specific [place] Urine Protein Urine Glucose (UA) Urine Ketones Urine Occult Blood Urine Nitrate Urine Bilirubin Urine Urobilinogen Ur Leukocyte Esterase Urine RBC Urine WBC Urine WBC Clumps Ur Squamous Epith Cells Urine Bacteria Micro UA Comment Urine Culture Comments 02/22/18 02/22/18 02/22/18 02:24 04:25 04:25 WBC 9.7 RBC 3.78 L Hgb 10.3 L Hct 31.9 L MCV 84.2 MCH 27.3 MCHC 32.4 RDW 16.9 Plt Count 207 MPV 8.1 Sodium 141 Potassium 5.0 Chloride 112 H Carbon Dioxide 21.6 Anion Gap 7 BUN 46 H Creatinine 1.00 Estimated GFR 53 L POC Glucose 132 H Random Glucose 134 H Calcium 8.4 L Urine Color Urine Clarity Urine pH Ur Specific [place] Urine Protein Urine Glucose (UA) Urine Ketones Urine Occult Blood Urine Nitrate Urine Bilirubin Urine Urobilinogen Ur Leukocyte Esterase Urine RBC Urine WBC Urine WBC Clumps Ur Squamous Epith Cells Urine Bacteria Micro UA Comment Urine Culture Comments 02/22/18 04:54 WBC RBC Hgb Hct MCV MCH MCHC RDW Plt Count MPV Sodium Potassium Chloride Carbon Dioxide Anion Gap BUN Creatinine Estimated GFR POC Glucose Random Glucose Calcium Urine Color Yellow Urine Clarity Cloudy H Urine pH 6.0 Ur Specific [place] Less/equal 1.005 Urine Protein Negative Urine Glucose (UA) Negative Urine Ketones Negative Urine Occult Blood Trace Urine Nitrate Negative Urine Bilirubin Negative Urine Urobilinogen 0.2 Ur Leukocyte Esterase Large H Urine RBC 0-3 Urine WBC 51-189 H Urine WBC Clumps Few H Ur Squamous Epith Cells 0-5 Urine Bacteria Few H Micro UA Comment Culture indicated Urine Culture Comments Culture indicated - Imaging Impressions Chest X-Ray 02/21/18 00:00 CONCLUSION: Under aerated without infiltrate or failure. Assessment and Plan - Assessment (1) Metabolic acidosis Code(s): E87.2 - Acidosis Status: Acute Plan: Resolved after bicarb drip (2) Acute hyperkalemia Code(s): E87.5 - Hyperkalemia Status: Acute Plan: Stable Likely due to acute kidney injury and polypharmacy as well as potassium supplementation (3) Acute on chronic kidney failure Code(s): N17.9 - Acute kidney failure, unspecified; N18.9 - Chronic kidney disease, unspecified Status: Acute Plan: Resolved (4) Dementia Code(s): F03.90 - Unspecified dementia without behavioral disturbance Status: Acute Plan: We will discuss with daughter Suresh Calle Patient may need home health (5) CAD (coronary artery disease) Code(s): I25.10 - Atherosclerotic heart disease of [place] coronary artery without angina pectoris Status: Acute Plan: Cath 12/2017, not followed up with cardiology yet as family was not clear on the discharge plan and patient has dementia Continue medical management for (6) CHF (congestive heart failure) Code(s): I50.9 - Heart failure, unspecified Status: Acute Plan: Known cardiomyopathy, no evidence of acute exacerbation at this time. Continue with Coreg, Aldactone, Lasix, hold lisinopril due to hyperkalemia Follow-up with Dr. 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
[2018-02-22] MEDS: guaiFENesin/Codeine Syrup 200 MG/20 MG 10 ML UDC PO PRN ×2 (09:37→22:09)
[2018-02-22] MEDS: Furosemide 20 MG Tablet PO SCH (09:39)
[2018-02-22] MEDS ORDERED: QUEtiapine 25 MG Tablet PO ONE (10:00)
--- NOTE | 2018-02-22 12:20 | ECG ---
Date Performed: 02/20/2018 Time Performed: 16:59:44 PTAGE: 82 years EKG: Sinus rhythm LOW QRS VOLTAGE IN PRECORDIAL LEADS POSSIBLE ANTERIOR MYOCARDIAL INFARCTION CONSIDER INFERIOR MYOCAR DIAL INFARCTION, AGE INDETERMINATE ABNORMAL ECG PREVIOUS TRACING : 01/20/2018 07.53 DOCTOR: Chandrakant Stokes Interpretating Date/Time 02/22/2018 12:20:20
--- NOTE | 2018-02-22 12:22 | ECG ---
Date Performed: 02/20/2018 Time Performed: 18:46:41 PTAGE: 82 years EKG: Sinus rhythm LOW QRS VOLTAGE IN PRECORDIAL LEADS CONSIDER ANTERIOR MYOCARDIAL INFARCTION, AGE INDETERMINATE CONSI YAMEL NFERIOR MYOCARDIAL INFARCTION, AGE INDETERMINATE ABNORMAL ECG PREVIOUS TRACING : 02/20/2018 16.59 DOCTOR: Chandrakant Stokes Interpretating Date/Time 02/22/2018 12:20:54
--- NOTE | 2018-02-22 12:23 | ECG ---
Date Performed: 02/21/2018 Time Performed: 00:40:13 PTAGE: 82 years EKG: SINUS BRADYCARDIA WITH OCCASIONAL SUPRAVENTRICULAR PREMATURE COMPLEXES ARM LEADS REVERSED C ONSIDER INFERIOR NC, AGE INDETERMINATE BORDERLINE ECG PREVIOUS TRACING : 02/20/2018 18.46 DOCTOR: Chandrakant Stokes Interpretating Date/Time 02/22/2018 12:21:15
[2018-02-22] MEDS: Temazepam 15 MG Capsule PO PRN (20:42)
[2018-02-22] MEDS ORDERED: QUEtiapine 100 MG Tablet PO SCH (21:00)
[2018-02-23] MEDS: Levothyroxine 100 MCG Tablet PO SCH (06:11)
[2018-02-23] MEDS: guaiFENesin/Codeine Syrup 200 MG/20 MG 10 ML UDC PO PRN (06:11)
--- NOTE | 2018-02-23 09:05 | P.DS ---
Date of admission: 02/20/18 18:10 Primary care physician: UNKNOWN Brief History from admission: This patient is an 82-year-old female with dementia and a history of congestive heart failure and chronic renal insufficiency who comes to the hospital with abnormal labs checked as an outpatient. Apparently her potassium was 7.7. She was sent to the emergency room for further evaluation and her potassium here 7.2. Patient has been on lisinopril, Lasix, Aldactone 50 mg twice a day, supplemental potassium, Lyrica and gabapentin. She appears quite dehydrated. Patient was hypotensive 86/58 blood pressure in the emergency room with evidence of acute kidney injury. She has been admitted to the ICU for further correction of her electrolytes and hypotension. Patient notes no fevers or chills. She has not had any nausea or vomiting. Her EKG was reviewed by me and does not show any ischemic changes but has some mildly peaked T waves. She was acidotic also on arrival. Overnight she has received insulin with glucose and IV hydration. This morning she has an improvement however her potassium is now 5.7 Spoke with her daughter Chata Spencer who says she had decreased PO intake and was more confused for the last 2 days. Recently had an unclear change in Meds per PCP after her 01/22 admission for CAD. Family takes good care of her overall. DS: Diagnosis - Discharge Diagnosis (1) Metabolic acidosis Status: Acute (2) Acute hyperkalemia Status: Acute (3) Acute on chronic kidney failure Status: Acute (4) Dementia Status: Acute (5) CAD (coronary artery disease) Status: Acute (6) CHF (congestive heart failure) Status: Acute DS: Medications - Discharge Medications Prescriptions: memantine [Namenda] 5 mg PO BID #62 tab pantoprazole 20 mg PO DAILY #31 tab quetiapine 100 mg PO HS #31 tab spironolactone 25 mg PO DAILY #31 tab DS: Summary Hospital Course: This patient is a 82-year-old female appears to be hyperkalemic due to polypharmacy and dehydration. Her medications were adjusted to avoid medication side effects. She had some hypoglycemia. She appeared quite high bowel glycemic after she was given insulin for her hyperkalemia. She had acute kidney injury and perhaps insulin lingered a bit in her system. This corrected quite readily with the D5 and hypoglycemic measures. Patient did well was discharged home - Time Spent with Patient Total time spent providing and/or coordinating discharge services: Less than 30 minutes - Quality: VTE Deep Vein Thrombosis/Pulmonary Embolism Present on Admission: No Exam Vital signs: Vital Signs 02/22/18 10:48 02/22/18 12:00 02/22/18 16:42 Temperature 97.6 F Pulse Rate 86 76 Respiratory Rate 18 30 H Blood Pressure 112/80 115/81 137/85 Pulse Oximetry 02/22/18 20:00 02/22/18 20:26 02/22/18 22:00 Temperature 97.8 F 98.0 F Pulse Rate 101 H 88 74 Respiratory Rate 24 32 H 22 Blood Pressure 186/90 H 186/90 H 135/89 Pulse Oximetry 100 97 95 02/22/18 22:20 02/23/18 00:00 02/23/18 04:00 Temperature 97.6 F Pulse Rate 90 82 74 Respiratory Rate 28 H 26 H 18 Blood Pressure 165/89 H 165/89 H 140/82 Pulse Oximetry 100 Intake & Output 02/22/18 02/23/18 02/23/18 18:59 06:59 18:59 Intake Total 820 / 820 Output Total 500 / 500 3 / 3 Balance 320 / 320 -3 / -3 Weight 71.4 kg Intake: IV 100 / 100 Rocephin Inj 1,000 MG In NS Inj 100 / 100 100 ML @ 200 mls/hr IV.SIG Q24H JANES Rx#:[id number] Oral 720 / 720 Output: Urine 500 / 500 3 / 3 Other: # Voids 5 # Incontinent Voids 3 Date of Last Bowel Movement 02/21/18 02/21/18 Narrative: GENERAL: Well-nourished, well-developed patient. SKIN: Warm and dry. HEAD: Normocephalic. EYES: No scleral icterus. No injection or drainage. NECK: Supple, trachea midline. No JVD or lymphadenopathy. CARDIOVASCULAR: Regular rate and rhythm without murmurs, gallops, or rubs. RESPIRATORY: Breath sounds equal bilaterally. No accessory muscle use. GASTROINTESTINAL: Abdomen soft, non-tender, nondistended. MUSCULOSKELETAL: No cyanosis, or edema. BACK: Nontender without obvious deformity. No CVA tenderness. NEUROLOGICAL: Awake and alert. Cranial nerves II through XII intact. Motor and sensory grossly within normal limits. Five out of 5 muscle strength in all muscle groups. Normal speech. Results Procedures completed during hospitalization: None - Impressions ITS Impressions Chest X-Ray 02/21/18 00:00 CONCLUSION: Under aerated without infiltrate or failure. Discharge Plan - Discharge Disposition Patient Disposition: /Home Health Service - Discharge Condition Condition: Stable - Discharge Order Discharge Orders: Discharge Order (Routine); Ordered 02/23/18 Ordered By: Estephania Taylor - Discharge Details Anticipated Discharge Date: 02/22/18 - Physicians Team Primary Care Provider: UNKNOWN, Attending Provider: Estephania Taylor Other Providers: [facility]
[2018-02-23] MEDS: Furosemide 20 MG Tablet PO SCH (10:26)
[2018-02-23] MEDS: Carvedilol 12.5 MG Tablet PO SCH (10:26)
[2018-02-23] MEDS: Gabapentin 100 MG Capsule PO SCH (10:27)
[2018-02-23] MEDS: traZODone 50 MG Tablet PO SCH (10:27)
[2018-02-23] MEDS: clonazePAM 0.5 MG Tablet PO SCH (10:27)
[2018-02-23 16:05] VITALS: BP 124/60; PULSE 84; RESP 24; TEMP 97.5; O2SAT 95
== END 2018-02-23 16:32 | disposition home health service (06) ==
LOC: PHED 16:19 → PHEDA 18:10 → PHICU 20:10
PROVIDERS: ADMIT Hospitalist; ATTEND Hospitalist